=== PATIENT | male | born 1940 | race Caucasian/White ===

== ENCOUNTER 2016-12-29 22:10 | Inpatient (IN) ==
[2016-12-30] MEDS ORDERED: Naloxone 0.4 MG/ML INJ IVP PRN (02:28)
[2016-12-30] MEDS ORDERED: Ondansetron 4 MG/2 ML VIAL IVP PRN (02:28)
[2016-12-30] MEDS ORDERED: *HR* LORazepam 2 MG/ML VIAL IVP PRN ×6 (02:34→16:20)
[2016-12-30] MEDS ORDERED: Albuterol 2.5 MG/3 ML NEBULIZER IH PRN (02:35)
--- NOTE | 2016-12-30 02:48 | Internal Med History&Physical ---
Date of Encounter: 12/30/16 Time of Encounter: 01:50 Assessment and Plan (1) Cholecystitis Current visit: No Status: Acute 1. npo. 2. Consult Dr. Fraire for likely surgery today. 3. Culture blood. 4. Start IV Zosyn and Flagyl. 5. Pain control with IV Morphine. 6. Nausea control. (2) Alcoholism /alcohol abuse Current visit: Yes Status: Chronic 1. Will start CIWA protocol. 2. MVI/Thiamine/Folate IV daily. 3. IV Ativan PRN for withdrawal symptoms. (3) COPD (chronic obstructive pulmonary disease) Current visit: Yes Status: Chronic 1. No acute exacerbation. 2. Duonebs Scheduled and Albuterol aerosols PRN. 3. Pt may be difficult to extubate post-operatively. Continued pulmonary support recommended. Qualifiers: COPD type: emphysema Emphysema type: unspecified Qualified Code(s): J43.9 - Emphysema, unspecified (4) Elevated troponin Current visit: Yes Status: Acute 1. No active chest pain or symptoms to suggest angina. 2. Suspect pt has demand ischemia. 3. Pt at increased risk for cardiovascular complications. 4. Consult cardiology for kelly-operative assistance. (5) DVT prophylaxis Current visit: No Status: Acute 1. Heparin SQ. Internal Medicine - H&P: HPI Chief complaint: RUQ abdominal pain Admitted From: Hospital to Hospital Transfer Plans for Post Hospital Care: Home History of present illness: Mr. Manzo is a 76 year old male who presents in transfer from [facility]. He presented there with complaints of RUQ abdominal pain, nausea, vomiting, subjective fevers, and chills. Work-up revealed he had acute cholecystitis. ER contacted Dr. Fraire for requested transfer. She requested patient be admitted to hospitalist service with a surgical consult, given his co- morbitidites. There was also concern he might have pneumonia and/or CHF based upon imaging. Upon my assessment of the patient, he looks dry, ill, nauseated, but non-toxic. He denies any CP, SOB, coughing, or wheezing. He denies any lower extremity edema or weight gain. He has a remote history of CHF (last ECHO 03/13 -- LVEF 55 % with diastolic dysfunction). He states his abdominal pain started suddenly over the last 24 hours with worsening symptoms. He denies any GI blood loss. He drinks about 2-3 beers every day and occasional hard liquor. He denies any history of liver disease, but his CT abdomen suggest cirrhosis. Pt also is along time smoker and he suffers from COPD. Of note, his troponin is elevated. EKG suggests atrial fibrillation but no significant findings to suggest ischemia. He denies any recent history of angina, but he is rather sedentary according to his daughter. Past Med Surg Social Fam HX - Past Medical History Attestation: Yes The following information was validated with the patient. Source: patient, old records reviewed, obtained from family Medical history: arthritis, atrial fibrillation, COPD, GERD, hypertension Psychiatric history: anxiety, depression - Past Surgical History Surgical History: no surgical history - Social History Smoking Status: Current every day smoker Packs per day: 1 Smokeless Tobacco Status: No Alcohol use: heavy Drug use: none Current living situation: Home, With Family Activity Level: Mostly sedentary Recent Out of Country Travel Within the Last 8 Weeks: No - Family History Father Living Status: Hx Family Cardiac Disorders: Yes Mother Living Status: Hx Family Cardiac Disorders: No Hx Family Respiratory Disorders: No Internal Medicine - H&P: Meds Diltiazem CD (24hr) [Cardizem CD] 180 mg PO DAILY 07/23/15 [History] Tamsulosin [Flomax] 0.4 mg PO DAILY 07/23/15 [History] Mirtazapine [Remeron] 30 mg PO HS 03/24/16 [History] Oxycodone HCl/Acetaminophen [Percocet 10-325 mg Tablet] 1 tab PO Q6H PRN [History] Omeprazole [PriLOSEC] 40 mg PO DAILY #30 cap 03/26/16 [Rx] TraZODone 50 mg PO HS 12/29/16 [History] Allergies aspirin Allergy (Verified 12/29/16 22:25) See Comments unknown - Constitutional Constitutional: chills, fever(s) - EENT Eyes: no blurry vision, no change in vision Ears: no ear pain, no tinnitus Nose, mouth and throat: no nasal congestion, no nasal discharge, no sinus pressure, no sore throat - Cardiovascular Cardiovascular ROS IM: no chest pain, no dyspnea, no dyspnea on exertion, no edema, no palpitations - Respiratory Respiratory: no cough, no dyspnea, no hemoptysis, no chest congestion, no excessive phlegm production - Gastrointestinal Gastrointestinal: abdominal pain, nausea, vomiting, no diarrhea, no hematemesis , no hematochezia, no melena - Genitourinary Genitourinary ROS male: no dysuria, no flank pain, no hematuria - Musculoskeletal Musculoskeletal ROS IM: arthralgias, no back pain - Integumentary Integumentary IM: no rash, no jaundice - Neurological Neurological ROS: no dizziness, no focal weakness, no frequent falls, no headache(s) - Psychiatric Psychiatric: no anxiety, no depression - Endocrine Endocrine IM: no cold intolerance, no heat intolerance - Hematologic/Lymphatic Hematologic/Lymphatic: no easy bruising, no lymphadenopathy - Allergic/Immunologic Allergic/Immunologic: wheezing, no GI upset with certain foods - Constitutional Vitals: Temp Pulse Resp BP Pulse Ox 99.0 F 83 14 115/66 95 12/30/16 01:12 12/30/16 01:12 12/30/16 01:12 12/30/16 01:12 12/30/16 01:12 General appearance: Present: cooperative, mild distress, A&O X 3, pleasant, answers questions appropriately - Head Head exam: Present: atraumatic, normal inspection - Expanded Head Exam Head exam expanded: Absent: abrasion, contusion, general tenderness - Eye Eye exam: Present: EOMI, normal appearance, PERRL. Absent: scleral icterus Pupils: Present: normal accommodation - ENT ENT exam: Present: mucous membranes dry, normal exam, normal oropharynx - Neck Neck exam general surgery: Present: full ROM, supple. Absent: lymphadenopathy, tenderness, thyromegaly - Respiratory Respiratory exam: Present: CTAB, prolonged expiratory phase. Absent: accessory muscle use, chest wall tenderness, rales, respiratory distress, rhonchi, wheezes Additional comments: barrel chested; mild/rare wheeze; no respiratory distress - Cardiovascular Cardiovascular exam: Present: distant heart sounds, irregular rhythm, +S1, +S2. Absent: diastolic murmur, JVD, systolic murmur - GI/Abdominal GI/Abdominal exam: Present: guarding, soft, tenderness (RUQ), no peritoneal signs. Absent: hepatomegaly, rebound, rigid, splenomegaly - Extremities Exam Extremities exam: Present: warm. Absent: calf tenderness, full ROM, joint swelling, pedal edema - Back Exam Back exam: Present: normal inspection. Absent: CVA tenderness (L), CVA tenderness (R) - Neurological Exam Neurological exam: Present: alert, CN II-XII intact, oriented X3, no focal deficits, strengths equal and symetr throughout - Psychiatric Psychiatric exam: Present: normal affect, normal mood - Skin Skin exam: Present: dry, warm. Absent: rash Internal Med - H&P Results - Labs Labs: I reviewed labs from Mario: WBC 13.9 hgb 14.4 Hct 41.2 Plt 133 Sodium 129 Potassium 4.0 Chloride 96 CO2 22 BUN 18 Creatinine 1.[address] scan Abdomen report reviewed as well - EKG Data -: EKG Interpreted by Myself - EKG Data Prior EKG available for review: no EKG comments: 12/30/16 02:56 Atrial Fibrillation; NO significant ST-T changes appreciated
[2016-12-30] MEDS: 0.9 % Sodium Chloride w KCl 20 MEQ/1,000 ML MLS IVC SCH (03:08)
[2016-12-30] MEDS: *HR* Morphine 2 MG/ML SYRINGE IVP PRN ×7 (03:11→21:22)
[2016-12-30] MEDS: Ipratropium/Albuterol Neb 3 ML IH SCH ×6 (05:05→23:05)
[2016-12-30] MEDS: *HR* Heparin 5,000 UNIT/ML VIAL SQ SCH ×2 (05:20→18:03)
[2016-12-30 05:39] LABS: Basophils % 0.2 %; Eosinophils % 0.1 %; Hematocrit 37.4 % (37.5-50.1); Lymphocytes # 2.2 K/mcL (0.6-4.6); Lymphocytes % 14.4 %; Mean Corpuscular HGB Conc 34.8 g/dL (31.6-35.5); Mean Corpuscular Hemoglobin 33.3 pg (28.0-33.3); Mean Corpuscular Volume 95.9 fL (83.0-100.0); Mean Platelet Volume 11.2 fL (9.4-12.4); Monocytes # 1.4 K/mcL (0.0-1.3); Monocytes % 9.4 %; Neutrophils # 11.4 K/mcL (1.6-8.9); Platelet Count 113 K/mcL (140-400); Red Cell Distribution Width 14.7 % (11.5-14.5); Segmented Neutrophils % 74.9 %
[2016-12-30 05:42] LABS: Alanine Aminotransferase 11 Units/L (0-55); Albumin 2.8 g/dL (3.5-5.0); Albumin/Globulin Ratio 0.7 (1.1-2.2); Alkaline Phosphatase 106 Units/L (38-126); Aspartate Amino Transferase 18 Units/L (5-34); BUN/Creatinine Ratio 20 (6-26); Bilirubin,Total 2.2 mg/dL (0.2-1.2); Blood Urea Nitrogen 21 mg/dL (8-26); Calcium 8.6 mg/dL (8.6-10.8); Carbon Dioxide 24 mEq/L (19-29); Chloride 98 mEq/L (98-109); Globulin 4.3 g/dL (2.4-3.5); Glucose 95 mg/dL (70-99); Magnesium 1.8 mg/dL (1.6-2.6); Osmolality,Calculated 277 (280-300); Potassium 4.2 mEq/L (3.5-4.5); Sodium 132 mEq/L (136-145); Total Protein 7.1 g/dL (6.0-8.3); eGFR For African Americans > 60 (> 60); eGFR For Non-African Americans > 60 (> 60)
[2016-12-30] MEDS ORDERED: MetroNIDAZOLE 500 MG/100 ML 500 MG/100 ML BAG IVPB SCH (08:00)
[2016-12-30] MEDS ORDERED: Piperacillin/Tazobactam 3.375 GM in D5% in Water (Mini-Bag+) 100 ML IVPB SCH (08:00)
[2016-12-30 08:45] LABS: Bilirubin,Direct 1.4 mg/dL (0.0-0.5)
--- NOTE | 2016-12-30 09:44 | Internal Med Progress Note ---
<Jamie Cárdenas - Last Filed: 12/30/16 16:28> Date of Encounter: 12/30/16 Time of Encounter: 09:44 - Assessment and plan (1) Acute cholecystitis Current Visit: Yes Status: Acute Assessment and plan: Abd CT and RUQ u/s done, possible early chlecystitis, surgery consulted, HIDA scan ordered for tmw, con't NPO, bowel rest, IV fluids. (2) Alcohol abuse Current Visit: Yes Status: Acute Assessment and plan: CIWA protocol with prn Ativan and daily rally pack. (3) Cirrhosis of liver Current Visit: No Status: Acute Assessment and plan: F/u with GI as outpt, from alcohol abuse. Qualifiers: Ascites presence: without ascites Qualified Code(s): K74.60 - Unspecified cirrhosis of liver (4) DVT prophylaxis Current Visit: Yes Status: Acute Assessment and plan: Heparin SQ. - Subjective Interval history: Pt seen and examined, pt received ativan prior and was very sleepy, family members were at bedside, updated us the situation. - Constitutional Vitals: Temp Pulse Resp BP Pulse Ox 98.5 F 96 16 144/79 93 L 12/30/16 06:43 12/30/16 06:43 12/30/16 06:43 12/30/16 06:43 12/30/16 06:43 General appearance: Absent: cooperative, answers questions appropriately - Head Head exam: Present: atraumatic, normocephalic - Eye Eye exam: Present: PERRL, conjuntiva pink, sclera anicteric Pupils: Present: PERRL - Neck Neck exam general surgery: Present: supple, trachea midline. Absent: lymphadenopathy - Respiratory Respiratory exam: Present: decreased breath sounds (at base b/l). Absent: accessory muscle use, rales, rhonchi, wheezes - Cardiovascular Cardiovascular exam: Present: RRR, +S1, +S2. Absent: diastolic murmur, gallop, rubs, systolic murmur - GI/Abdominal GI/Abdominal exam: Present: normal bowel sounds, soft, no peritoneal signs. Absent: distended, tenderness - Extremities Exam Extremities exam: Present: warm, radial pulses palpable and symetrical. Absent : calf tenderness, cyanotic, pedal edema - Neurological Exam Neurological exam: Present: CN II-XII intact, oriented X3, no focal deficits. Absent: pronater drift, facial droop, speech deficit - Skin Skin exam: Present: dry, intact Internal Medicine: Result - Labs CBC & Chem 7: 12/30/16 05:15 12/30/16 05:15 Labs: Short CBC 12/30/16 Range/Units 05:15 WBC 15.2 H (4.3-11.1) K/mcL Hgb 13.0 (12.9-16.9) g/dL Hct 37.4 L (37.5-50.1) % Plt Count 113 L (140-400) K/mcL Neutrophils # 11.4 H (1.6-8.9) K/mcL BMP 12/30/16 05:15 Sodium 132 L Potassium 4.2 Chloride 98 Carbon Dioxide 24 BUN 21 Creatinine 1.06 Glucose 95 Calcium 8.6 Cardiac Enzymes 12/30/16 Range/Units 05:15 Troponin I 0.03 (0-0.03) ng/mL Liver Function 12/30/16 Range/Units 05:15 Total Bilirubin 2.2 H (0.2-1.2) mg/dL Direct Bilirubin 1.4 H (0.0-0.5) mg/dL AST 18 (5-34) Units/L ALT 11 (0-55) Units/L Alkaline Phosphatase 106 (38-126) Units/L Albumin 2.8 L (3.5-5.0) g/dL Consult Discharge Plan - Plan Referrals: Emanuel Waters MD [Primary Care Provider] - <Eric Puentes - Last Filed: 12/30/16 16:47> Date of Encounter: 12/30/16 - Constitutional Vitals: Temp Pulse Resp BP Pulse Ox 98.0 F 91 20 154/81 91 L 12/30/16 11:48 12/30/16 11:48 12/30/16 12:10 12/30/16 11:48 12/30/16 12:10 Internal Medicine: Result - Labs CBC & Chem 7: 12/30/16 05:15 12/30/16 05:15 Labs: Short CBC 12/30/16 Range/Units 05:15 WBC 15.2 H (4.3-11.1) K/mcL Hgb 13.0 (12.9-16.9) g/dL Hct 37.4 L (37.5-50.1) % Plt Count 113 L (140-400) K/mcL Neutrophils # 11.4 H (1.6-8.9) K/mcL BMP 12/30/16 05:15 Sodium 132 L Potassium 4.2 Chloride 98 Carbon Dioxide 24 BUN 21 Creatinine 1.06 Glucose 95 Calcium 8.6 Cardiac Enzymes 12/30/16 12/30/16 Range/Units 05:15 12:27 Troponin I 0.03 0.02 (0-0.03) ng/mL Liver Function 12/30/16 Range/Units 05:15 Total Bilirubin 2.2 H (0.2-1.2) mg/dL Direct Bilirubin 1.4 H (0.0-0.5) mg/dL AST 18 (5-34) Units/L ALT 11 (0-55) Units/L Alkaline Phosphatase 106 (38-126) Units/L Albumin 2.8 L (3.5-5.0) g/dL - ABG Interpretation ABG results: PT/INR, D-dimer PT 15.1 Seconds (9.4-12.1) H 12/30/16 12:27 - Impressions Impressions Gallbladder Ultrasound 12/30/16 10:30 IMPRESSION: Cholelithiasis. Sonographic Cool sign was reported and gallbladder wall is upper limits of normal in thickness. Early cholecystitis is a consideration in the appropriate clinical setting. If warranted, HIDA scan could be performed for further assessment. D/ / Bassem Jain MD / Bassem Jain MD Interpreting Provider: Bassem Jain MD - Attending Attestation I examined this patient and my medical decision-making was reviewed with the COCKTA[employer] WAITRESS/PA/Advanced Practice Nurse/Resident Physician. I agree with the documented findings, disposition and treatment plan as described except to the extent set forth below. Agree with Dr. Cárdenas's assessment and plan. Will continue with cipro and flagyl. Follow surgical input.
--- NOTE | 2016-12-30 10:10 | General Surgery Consult Note ---
<Frank Sánchez - Last Filed: 12/30/16 11:34> Date of Encounter: 12/30/16 Time of Encounter: 08:10 Assessment and Plan (1) Abdominal pain Current Visit: No Status: Acute CT on 12/29/16 suggestive of possible cholecystitis, recommending US. US on 12/30/16 with cholelithiasis. Sonographic Cool sign. Gallbladder upper limits of normal thickness. Consider early cholecystitis, consider HIDA scan. Elevated Bilirubin at 2.2 total, 1.4 direct. Normal in Jun 2016. Previous admission of abdominal pain 03/24/17 for gastritis secondary to alcohol consumption, MRI noted 2 gallstones then and trace pericholecystic fluid nonspecific in setting of cirrhosis. Qualifiers: Abdominal location: right upper quadrant Qualified Code(s): R10.11 - Right upper quadrant pain (2) Cholecystitis Current Visit: No Status: Acute Possible cholecysititis, US pending. (3) Cirrhosis of liver Current Visit: No Status: Acute Management per medicine service. Qualifiers: Ascites presence: without ascites (4) Alcoholism /alcohol abuse Current Visit: Yes Status: Chronic Noted 2, occasionally 3 beers daily. (5) Atrial fibrillation Current Visit: No Status: Chronic Anticoagulation discontinued 6 months ago due to gastric bleeding. INR 1.3 Echo pending. Management per medicine service. Qualifiers: Atrial fibrillation type: chronic Qualified Code(s): I48.2 - Chronic atrial fibrillation (6) COPD (chronic obstructive pulmonary disease) Current Visit: Yes Status: Chronic Management per medicine service. Qualifiers: COPD type: emphysema Emphysema type: unspecified Qualified Code(s): J43.9 - Emphysema, unspecified History of Present Illness Consult date: 12/30/16 Reason for consult: abdominal pain Requesting physician: Alon Puga History of present illness: Mr. Manzo is a 76 year old male transferred from [place] ED for acute abdominal patient x 2 days. Patient states he noted some blood in his urine 2 days ago when the pain began, but denies any pain with urination or changes in frequency. States he thought it was his "kidneys". He described the pain as being present in the RUQ and RLQ radiating into the R flank, but no radiation to his back. He describes the discomfort as a cramping pain that is continuously a 10/10 in severity. Noted that he hasn't had an appetite the past 2 days with the pain, states eating anything seems to make the pain worse. Patient denies any reflex/GERD, though on omeprazole with history of gastritis. Patient denies any fever, chills, shortness or breath, chest pain, diarrhea. PMHs includes arthritis, A fib, HTN, anxiety, depression,and long standing history of tobacco and alcohol use. Denies any previous issues with gallbladder. Patient states previously on anticoagulation that was discontinued approx 6 months ago due to gastric bleeding. Denies any surgical history. Admitted to [place] March 24, 2016 for gastritis secondary to alcohol consumption. CT report from [place] 12/29/16: suggested RUQ US for possible acute cholecystitis. Gallbladder shrunken with apparent stones, suspected gallbladder wall thickening and pericholecystic fatty stranding. CT also noted Cirrhosis with fat stranding. Nonobstructing infrarenal stones. 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 T12 compression fracture (also mentioned on previous CT). Heavy atherosclerosis. US of gallbladder pending. Past Med Surg Social Fam HX - Past Medical History Source: patient Medical history: arthritis, atrial fibrillation, COPD, GERD, hypertension Psychiatric history: anxiety, depression - Past Surgical History Surgical History: no surgical history - Social History Smoking Status: Current every day smoker (for approx 70 years) Packs per day: 1 Smokeless Tobacco Status: No Alcohol use: heavy (2-3 beers daily) Drug use: none - Family History Father Living Status: Hx Family Cardiac Disorders: Yes Mother Living Status: Hx Family Cardiac Disorders: No Hx Family Respiratory Disorders: No Medications and Allergies Diltiazem CD (24hr) [Cardizem CD] 180 mg PO DAILY 07/23/15 [History] Tamsulosin [Flomax] 0.4 mg PO DAILY 07/23/15 [History] Mirtazapine [Remeron] 30 mg PO HS 03/24/16 [History] Oxycodone HCl/Acetaminophen [Percocet 10-325 mg Tablet] 1 tab PO Q8H PRN [History] Omeprazole [PriLOSEC] 40 mg PO DAILY #30 cap 03/26/16 [Rx] TraZODone 50 mg PO HS 12/29/16 [History] Loratadine [Claritin] 10 mg PO DAILY 12/30/16 [History] Allergies aspirin Allergy (Verified 12/30/16 07:32) See Comments unknown Review of Systems All systems PM: A 10-system review of systems was performed and is negative for pertinent findings except as documented above in the HPI. - Constitutional no chills, no fever(s) - EENT Nose, mouth and throat: no dysphagia - Cardiovascular dyspnea, no chest pain, no syncope - Respiratory dyspnea - Gastrointestinal abdominal pain, cramping, no diarrhea, no nausea, no vomiting - Genitourinary flank pain, hematuria, no difficulty urinating - Musculoskeletal no muscle weakness, no radiating pain into limb - Neurological no confusion, no dizziness, no syncope - Endocrine no fatigue, no flushing General Surgery Exam Initial Vital Signs Temp Pulse Resp BP Pulse Ox 99.0 F 83 14 115/66 95 12/30/16 01:12 12/30/16 01:12 12/30/16 01:12 12/30/16 01:12 12/30/16 01:12 - General physical appearance well developed, well nourished, moderate distress, moderate pain - Eyes normal ocular movement - ENT normal mucosa, atraumatic, normocephalic - Neck trachea midline - Respiratory normal respiratory effort wheezing: bilateral (expiratory) - Cardiovascular Cardiovascular exam: Present: tachycardia, irregular rhythm - Abdomen Abdomen general surgery: Present: bowel sounds present (hypoactive), soft, tender (tenderness worse in RUQ, but also present in RLQ and R flank. No CVA tenderness.). Absent: distended, guarding, rebound, rigid Abdominal Tenderness: Present: RUQ (Cool's sign positive.), RLQ - Integumentary Integumentary general surgery: Present: warm and dry - Neurologic Present: CN 2-12 grossly intact - Psychiatric Psychiatric general surgery: Present: A&Ox3, speech is normal, memory intact Exam Initial Vital Signs Temp Pulse Resp BP Pulse Ox 99.0 F 83 14 115/66 95 12/30/16 01:12 12/30/16 01:12 12/30/16 01:12 12/30/16 01:12 12/30/16 01:12 Results - Labs 12/30/16 05:15 12/30/16 05:15 Abnormal lab results WBC 15.2 K/mcL (4.3-11.1) H 12/30/16 05:15 RBC 3.90 M/mcL (4.19-5.50) L 12/30/16 05:15 Hct 37.4 % (37.5-50.1) L 12/30/16 05:15 RDW 14.7 % (11.5-14.5) H 12/30/16 05:15 Plt Count 113 K/mcL (140-400) L 12/30/16 05:15 Neutrophils # 11.4 K/mcL (1.6-8.9) H 12/30/16 05:15 Monocytes # 1.4 K/mcL (0.0-1.3) H 12/30/16 05:15 Sodium 132 mEq/L (136-145) L 12/30/16 05:15 POC Glucose 92 (58-89) H 12/30/16 05:50 Calculated Osmolality 277 (280-300) L 12/30/16 05:15 Total Bilirubin 2.2 mg/dL (0.2-1.2) H 12/30/16 05:15 Direct Bilirubin 1.4 mg/dL (0.0-0.5) H 12/30/16 05:15 Albumin 2.8 g/dL (3.5-5.0) L 12/30/16 05:15 Globulin 4.3 g/dL (2.4-3.5) H 12/30/16 05:15 Albumin/Globulin Ratio 0.7 (1.1-2.2) L 12/30/16 05:15 Diabetes panel 12/30/16 Range/Units 05:15 Sodium 132 L (136-145) mEq/L Potassium 4.2 (3.5-4.5) mEq/L Chloride 98 (98-109) mEq/L Carbon Dioxide 24 (19-29) mEq/L BUN 21 (8-26) mg/dL Creatinine 1.06 (0.72-1.25) mg/dL Glucose 95 (70-99) mg/dL Calcium 8.6 (8.6-10.8) mg/dL AST 18 (5-34) Units/L ALT 11 (0-55) Units/L Alkaline Phosphatase 106 (38-126) Units/L Albumin 2.8 L (3.5-5.0) g/dL Calcium panel 12/30/16 Range/Units 05:15 Calcium 8.6 (8.6-10.8) mg/dL Albumin 2.8 L (3.5-5.0) g/dL Pituitary panel 12/30/16 Range/Units 05:15 Sodium 132 L (136-145) mEq/L Potassium 4.2 (3.5-4.5) mEq/L Chloride 98 (98-109) mEq/L Carbon Dioxide 24 (19-29) mEq/L BUN 21 (8-26) mg/dL Creatinine 1.06 (0.72-1.25) mg/dL Glucose 95 (70-99) mg/dL Calcium 8.6 (8.6-10.8) mg/dL Adrenal panel 12/30/16 Range/Units 05:15 Sodium 132 L (136-145) mEq/L Potassium 4.2 (3.5-4.5) mEq/L Chloride 98 (98-109) mEq/L Carbon Dioxide 24 (19-29) mEq/L BUN 21 (8-26) mg/dL Creatinine 1.06 (0.72-1.25) mg/dL Glucose 95 (70-99) mg/dL Calcium 8.6 (8.6-10.8) mg/dL Total Bilirubin 2.2 H (0.2-1.2) mg/dL AST 18 (5-34) Units/L ALT 11 (0-55) Units/L Alkaline Phosphatase 106 (38-126) Units/L Albumin 2.8 L (3.5-5.0) g/dL All other labs normal. Consult Discharge Plan - Plan Referrals: Emanuel Waters MD [Primary Care Provider] - <Hoa Fraire - Last Filed: 12/30/16 16:25> Date of Encounter: 12/30/16 Assessment and Plan (1) Alcoholism /alcohol abuse Current Visit: Yes Status: Chronic patient likely drinks more than stated amount given alcohol history and liver disease (2) COPD (chronic obstructive pulmonary disease) Current Visit: Yes Status: Chronic Qualifiers: COPD type: emphysema Emphysema type: unspecified Qualified Code(s): J43.9 - Emphysema, unspecified (3) Abdominal pain Current Visit: No Status: Acute patient with cirrhosis and gallbladder is contracted with stones and some stranding around liver with elevated lft makes me more concerned for a liver process. US gallbladder obtained with no findings consistent with acute cholecystitis. Will obtain hida scan if he can stay off narcotics and ativan. If cholecystitis demonstrated with obtain percutaneous cholecystostomy tube. Patient is very tender in RUQ. Elevated wbc and Direct bilirubin. CBD normal on US. continue Abx, trend wbc Qualifiers: Abdominal location: right upper quadrant Qualified Code(s): R10.11 - Right upper quadrant pain (4) Elevated LFTs Current Visit: Yes Status: Acute trend patient had hepatitis panel in february 2016 - negative History of Present Illness History of present illness: per family present patient was admitted in February of last year for similar complaints of pain. 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 Review of Systems All systems PM: A 10-system review of systems was performed and is negative for pertinent findings except as documented above in the HPI. General Surgery Exam Initial Vital Signs Temp Pulse Resp BP Pulse Ox 99.0 F 83 14 115/66 95 12/30/16 01:12 12/30/16 01:12 12/30/16 01:12 12/30/16 01:12 12/30/16 01:12 - General physical appearance moderate distress, cachectic, chronically ill - Eyes pinpoint pupil - ENT dry mucosa, atraumatic, normocephalic - Abdomen Abdomen general surgery: Present: bowel sounds present, soft, tender. Absent: distended, guarding, rebound Abdominal Tenderness: Present: RUQ - Integumentary Integumentary general surgery: Present: warm and dry, no abnormal pigmentation - Neurologic Present: other (sedated) - Psychiatric Psychiatric general surgery: Present: A&Ox3 Exam Initial Vital Signs Temp Pulse Resp BP Pulse Ox 99.0 F 83 14 115/66 95 12/30/16 01:12 12/30/16 01:12 12/30/16 01:12 12/30/16 01:12 12/30/16 01:12 Results - Labs 12/30/16 05:15 12/30/16 05:15 Abnormal lab results WBC 15.2 K/mcL (4.3-11.1) H 12/30/16 05:15 RBC 3.90 M/mcL (4.19-5.50) L 12/30/16 05:15 Hct 37.4 % (37.5-50.1) L 12/30/16 05:15 RDW 14.7 % (11.5-14.5) H 12/30/16 05:15 Plt Count 113 K/mcL (140-400) L 12/30/16 05:15 Neutrophils # 11.4 K/mcL (1.6-8.9) H 12/30/16 05:15 Monocytes # 1.4 K/mcL (0.0-1.3) H 12/30/16 05:15 PT 15.1 Seconds (9.4-12.1) H 12/30/16 12:27 Sodium 132 mEq/L (136-145) L 12/30/16 05:15 POC Glucose 102 (58-89) H 12/30/16 11:44 Calculated Osmolality 277 (280-300) L 12/30/16 05:15 Total Bilirubin 2.2 mg/dL (0.2-1.2) H 12/30/16 05:15 Direct Bilirubin 1.4 mg/dL (0.0-0.5) H 12/30/16 05:15 Albumin 2.8 g/dL (3.5-5.0) L 12/30/16 05:15 Globulin 4.3 g/dL (2.4-3.5) H 12/30/16 05:15 Albumin/Globulin Ratio 0.7 (1.1-2.2) L 12/30/16 05:15 Diabetes panel 12/30/16 Range/Units 05:15 Sodium 132 L (136-145) mEq/L Potassium 4.2 (3.5-4.5) mEq/L Chloride 98 (98-109) mEq/L Carbon Dioxide 24 (19-29) mEq/L BUN 21 (8-26) mg/dL Creatinine 1.06 (0.72-1.25) mg/dL Glucose 95 (70-99) mg/dL Calcium 8.6 (8.6-10.8) mg/dL AST 18 (5-34) Units/L ALT 11 (0-55) Units/L Alkaline Phosphatase 106 (38-126) Units/L Albumin 2.8 L (3.5-5.0) g/dL Calcium panel 12/30/16 Range/Units 05:15 Calcium 8.6 (8.6-10.8) mg/dL Albumin 2.8 L (3.5-5.0) g/dL Pituitary panel 12/30/16 Range/Units 05:15 Sodium 132 L (136-145) mEq/L Potassium 4.2 (3.5-4.5) mEq/L Chloride 98 (98-109) mEq/L Carbon Dioxide 24 (19-29) mEq/L BUN 21 (8-26) mg/dL Creatinine 1.06 (0.72-1.25) mg/dL Glucose 95 (70-99) mg/dL Calcium 8.6 (8.6-10.8) mg/dL Adrenal panel 12/30/16 Range/Units 05:15 Sodium 132 L (136-145) mEq/L Potassium 4.2 (3.5-4.5) mEq/L Chloride 98 (98-109) mEq/L Carbon Dioxide 24 (19-29) mEq/L BUN 21 (8-26) mg/dL Creatinine 1.06 (0.72-1.25) mg/dL Glucose 95 (70-99) mg/dL Calcium 8.6 (8.6-10.8) mg/dL Total Bilirubin 2.2 H (0.2-1.2) mg/dL AST 18 (5-34) Units/L ALT 11 (0-55) Units/L Alkaline Phosphatase 106 (38-126) Units/L Albumin 2.8 L (3.5-5.0) g/dL All other labs normal. - Imaging CT scan - abdomen: report reviewed, image reviewed CT scan - pelvis: report reviewed, image reviewed US - abdomen: report reviewed - Attending Attestation I examined this patient and my medical decision-making was reviewed with the SENIOR CORE JAVA DEVELOPER/PA/Advanced Practice Nurse/Resident Physician. I agree with the documented findings, disposition and treatment plan as described except to the extent set forth below.
[2016-12-30] MEDS: Pantoprazole 40 MG VIAL IVP SCH (11:38)
[2016-12-30] MEDS: Thiamine (B-1) 100 MG, Folic Acid 1 MG, MVI, adult with vitamin K 10 ML in 0.9 % Sodi... IV SCH (11:59)
[2016-12-30 12:57] LABS: INR 1.4; Prothrombin Time 15.1 Seconds (9.4-12.1)
[2016-12-30] MEDS ORDERED: Water for inj. (sterile) 10 ML IV ONE (14:38)
[2016-12-30] MEDS ORDERED: Perflutren Lipid Microsphere 1.3 ML in 0.9 % Sodium Chloride 8.7 ML IVP ONE (17:10)
[2016-12-30] MEDS: 0.9 % Sodium Chloride 1,000 ML IVC SCH (17:58)
[2016-12-30] MEDS: MetroNIDAZOLE 500 MG/100 ML 500 MG/100 ML BAG IVPB SCH (18:00)
[2016-12-30] MEDS: Temazepam 15 MG CAPSULE PO PRN (23:46)
[2016-12-31 00:40] LABS: Bilirubin,Urine Moderate (Negative); Blood,Urine Negative (Negative); Clarity,Urine Clear (Clear); Color,Urine Yellow (Yellow); Glucose,Urine (UA) Normal (Normal); Ketones,Urine Negative (Negative); Leukocyte Esterase,Urine Negative (Negative); Nitrite,Urine Negative (Negative); PH,Urine 6.5 pH Units (5.0-8.0); Protein,Urine 100 mg/dL (Neg-Trace); Specific Gravity,Urine 1.016 (1.010-1.025); Urobilinogen,Urine Normal (Normal)
[2016-12-31 00:42] LABS: Bacteria,Urine None Seen per hpf (None-Few); Hyaline Casts,Urine None Seen per lpf (None-Few); RBC,Urine 0-3 per hpf (0-3); Squamous Epithelial Cell,Urine Many per lpf (None-Few)
[2016-12-31] MEDS: Ipratropium/Albuterol Neb 3 ML IH SCH ×5 (04:34→20:39)
[2016-12-31] MEDS: Acetaminophen 325 MG TABLET PO PRN ×2 (05:09→18:27)
[2016-12-31] MEDS: *HR* Heparin 5,000 UNIT/ML VIAL SQ SCH ×2 (05:10→16:32)
[2016-12-31 05:25] LABS: Basophils % 0.2 %; Eosinophils % 0.1 %; Hemoglobin 12.7 g/dL (12.9-16.9); Immature Granulocytes % 0.9 % (0-4); Lymphocytes % 7.4 %; Mean Corpuscular HGB Conc 33.4 g/dL (31.6-35.5); Mean Corpuscular Hemoglobin 32.4 pg (28.0-33.3); Mean Corpuscular Volume 96.9 fL (83.0-100.0); Mean Platelet Volume 11.4 fL (9.4-12.4); Monocytes % 11.1 %; Platelet Count 109 K/mcL (140-400); Red Blood Count 3.92 M/mcL (4.19-5.50); Red Cell Distribution Width 14.7 % (11.5-14.5); Segmented Neutrophils % 80.3 %
[2016-12-31 05:26] LABS: Lymphocytes # 0.9 K/mcL (0.6-4.6); Monocytes # 1.3 K/mcL (0.0-1.3); Neutrophils # 9.4 K/mcL (1.6-8.9)
[2016-12-31 05:48] LABS: Alanine Aminotransferase 9 Units/L (0-55); Albumin 2.6 g/dL (3.5-5.0); Albumin/Globulin Ratio 0.6 (1.1-2.2); Alkaline Phosphatase 109 Units/L (38-126); Aspartate Amino Transferase 15 Units/L (5-34); BUN/Creatinine Ratio 19 (6-26); Bilirubin,Direct 0.8 mg/dL (0.0-0.5); Bilirubin,Indirect 0.5 mg/dL (0.0-1.2); Bilirubin,Total 1.3 mg/dL (0.2-1.2); Blood Urea Nitrogen 15 mg/dL (8-26); Calcium 8.5 mg/dL (8.6-10.8); Carbon Dioxide 19 mEq/L (19-29); Chloride 103 mEq/L (98-109); Globulin 4.3 g/dL (2.4-3.5); Glucose 97 mg/dL (70-99); Osmolality,Calculated 275 (280-300); Potassium 3.9 mEq/L (3.5-4.5); Sodium 132 mEq/L (136-145); Total Protein 6.9 g/dL (6.0-8.3); eGFR For African Americans > 60 (> 60); eGFR For Non-African Americans > 60 (> 60)
[2016-12-31] MEDS: 0.9 % Sodium Chloride 1,000 ML IVC SCH ×3 (06:01→22:45)
[2016-12-31] MEDS: *HR* Morphine 2 MG/ML SYRINGE IVP PRN ×5 (09:12→23:06)
[2016-12-31] MEDS: MetroNIDAZOLE 500 MG/100 ML 500 MG/100 ML BAG IVPB SCH ×3 (09:12→16:33)
[2016-12-31] MEDS: Thiamine (B-1) 100 MG, Folic Acid 1 MG, MVI, adult with vitamin K 10 ML in 0.9 % Sodi... IV SCH (09:13)
[2016-12-31] MEDS: Pantoprazole 40 MG VIAL IVP SCH (09:14)
--- NOTE | 2016-12-31 10:36 | ECHO - Doppler Report ---
Echocardiogram Name: Tomás Manzo Date of Study: 12/30/2016 Date: 1940 Ht: 71.0 in Medical Record#: [id number] Age: 76 Wt: 129.0 lb Gender: Male BSA: 1.75 Order #: [id number] Location: [facility] Room #: 3A31 Reading Physician: Pelon Neff DO, CHRISTOPHER, JOSEPH OCHOA Printing Worker Supervisor: Ruchi Mukherjee Ordering Physician: Alon Puga MD Primary Physician: Emanuel Waters MD Indications: Troponin elevation Impressions: LV function varies by cycle length of atrial fibrillation. Overall, LVEF appears to be low normal, 50-55%. Indeterminate diastolic function. Severely dilated left atrium. Severely dilated right atrium. Mild mitral regurgitation. Mild-moderate pulmonary hypertension. Estimated RVSP is 46 mmHg. Findings: Study Quality * Technically sub-optimal due to poor echocardiographic windows. ECG Findings * Atrial fibrillation. Left Ventricle * LV function varies by cycle length of atrial fibrillation. Overall, LVEF appears to be low normal, 50-55%. * Normal LV chamber size and wall thickness. * Indeterminate diastolic function. Right Ventricle * Normal right ventricular structure and function. Left Atrium * Severely dilated left atrium. Right Atrium * Severely dilated right atrium. Interatrial Septum * Interatrial septum not well evaluated. Visually, it does appear to be persistent bowed from left to right. Aortic Valve * Trileaflet aortic valve. * Mildly sclerotic aortic valve leaflets with focal areas of calcification. * No aortic regurgitation. * No aortic stenosis. Mitral Valve * Mildly thickened mitral valve leaflets and subvalvular apparatus. * Mild mitral annular calcification. * Mild mitral regurgitation. * No mitral stenosis. Tricuspid Valve * Normal tricuspid valve structure. * Trace tricuspid regurgitation. * Mild-moderate pulmonary hypertension. * Estimated RVSP is 46 mmHg. * Estimated RA pressure is 5 mmHg. Pulmonic Valve * Pulmonic valve not well visualized. * No pulmonic regurgitation. Aorta * Normally sized aortic root. Pericardium * The pericardium appears normal. IVC * Normal IVC dimensions and inspiratory collapse. Pulmonary Artery * Normal visualized portions of the main pulmonary artery. History Hypertension 03/24/2016 a Previous Echo was performed. Measurements: BP: 154/ 81 2D Normal Values RVIDd: 4.30 cm <2.7 cm IVSd: 1.00 cm 0.6 - 1.0 cm LVIDd: 5.30 cm 3.7 - 5.6 cm LVPWd: .90 cm 0.6 - 1.1 cm LVIDs: 4.20 cm 1.5 - 3.6 cm AO: 2.90 cm < 4.0 cm LA: 5.00 cm 2.0 - 4.0cm %FS: 20.80 cm >25 % LA volume: 286 Mitral Valve Peak E:.88 m/sec Peak A:.32 m/sec E/A Ratio:2.7 Peak E' Lat Uvaldo:20.4 cm/s Peak E' Med Uvaldo:10.1 cm/s E/E' Lat Ratio:4.3 E/E' Med Ratio:8.7 Tricuspid Valve TV Regurg Peak Grad: 41.00mmHg TV Regurg Peak Uvaldo: 3.21m/sec Updated by Pelon Neff DO, CHRISTOPHER, JOSEPH OCHOA on 12/31/2016 10:29:27 AM electronically signed on 12/31/2016 10:30:10 AM with status of Final [employer] Molina: 1=Normal, 2=Hypokinesis, 3=Akinesis, 4=Dyskinesis, 5=Aneurysmal, 6=Hyperkinetic, X=Not Visualized (Blank)=Missing
--- NOTE | 2016-12-31 10:54 | Internal Med Progress Note ---
Date of Encounter: 12/31/16 Time of Encounter: 10:53 - Assessment and plan (1) Acute cholecystitis Current Visit: Yes Status: Acute (2) Alcohol abuse Current Visit: Yes Status: Acute (3) Cirrhosis of liver Current Visit: No Status: Acute Qualifiers: Ascites presence: without ascites Qualified Code(s): K74.60 - Unspecified cirrhosis of liver (4) DVT prophylaxis Current Visit: Yes Status: Acute - Subjective Interval history: Pt seen and examined, pt received ativan prior and was very sleepy, family members were at bedside, updated us the situation. - Constitutional Vitals: Temp Pulse Resp BP Pulse Ox 97.6 F 89 20 160/79 93 L 12/31/16 08:55 12/31/16 08:55 12/31/16 08:55 12/31/16 08:55 12/31/16 08:55 General appearance: Absent: cooperative, answers questions appropriately Internal Medicine: Result - Labs CBC & Chem 7: 12/31/16 04:27 12/31/16 04:27 Labs: Short CBC 12/31/16 Range/Units 04:27 WBC 11.7 H (4.3-11.1) K/mcL Hgb 12.7 L (12.9-16.9) g/dL Hct 38.0 (37.5-50.1) % Plt Count 109 L (140-400) K/mcL Neutrophils # 9.4 H (1.6-8.9) K/mcL BMP 12/31/16 04:27 Sodium 132 L Potassium 3.9 Chloride 103 Carbon Dioxide 19 BUN 15 Creatinine 0.79 Glucose 97 Calcium 8.5 L Cardiac Enzymes 12/30/16 12/30/16 Range/Units 12:27 18:30 Troponin I 0.02 0.02 (0-0.03) ng/mL Liver Function 12/31/16 Range/Units 04:27 Total Bilirubin 1.3 H (0.2-1.2) mg/dL Direct Bilirubin 0.8 H (0.0-0.5) mg/dL AST 15 (5-34) Units/L ALT 9 (0-55) Units/L Alkaline Phosphatase 109 (38-126) Units/L Albumin 2.6 L (3.5-5.0) g/dL Urine 12/31/16 Range/Units 00:27 Urine Color Yellow (Yellow) Urine Clarity Clear (Clear) Urine pH 6.5 (5.0-8.0) pH Units Ur Specific [place] 1.016 (1.010-1.025) Urine Protein 100 H (Neg-Trace) mg/dL Urine Glucose (UA) Normal (Normal) mg/dL - ABG Interpretation ABG results: PT/INR, D-dimer PT 15.1 Seconds (9.4-12.1) H 12/30/16 12:27 - Impressions Impressions Gallbladder Ultrasound 12/30/16 10:30 IMPRESSION: Cholelithiasis. Sonographic Cool sign was reported and gallbladder wall is upper limits of normal in thickness. Early cholecystitis is a consideration in the appropriate clinical setting. If warranted, HIDA scan could be performed for further assessment. D/ / Bassem Jain MD / Bassem Jain MD Interpreting Provider: Bassem Jain MD Consult Discharge Plan - Plan Referrals: Emanuel Waters MD [Primary Care Provider] -
--- NOTE | 2016-12-31 12:33 | General Surgery Progress Note ---
<Marie Shine Jenaro - Last Filed: 12/31/16 12:35> Date of Encounter: 12/31/16 Time of Encounter: 12:30 - Assessment and Plan (1) Cholecystitis Current Visit: No Status: Acute HIDA scan is suggestive of acute/chronic cholecystitis- unable to visualize gallbaldder even after injection of morphine NPO Interventional Radiology consulted to cholecystostomy tube placement- notified per myself Supportive care/pain control INR- 1.4 (2) Cirrhosis of liver Current Visit: No Status: Chronic Management per medicine service Qualifiers: Hepatic cirrhosis type: alcoholic cirrhosis Ascites presence: without ascites Qualified Code(s): K70.30 - Alcoholic cirrhosis of liver without ascites (3) Alcoholism /alcohol abuse Current Visit: Yes Status: Chronic Monitor for withdrawal Management per medicine service (4) COPD (chronic obstructive pulmonary disease) Current Visit: Yes Status: Chronic Aerosols scheduled Incentive Spirometer every 1 hour while awake Management per medicine service Qualifiers: COPD type: emphysema Emphysema type: unspecified Qualified Code(s): J43.9 - Emphysema, unspecified (5) Atrial fibrillation Current Visit: No Status: Chronic Restart Cardizem at home dose Qualifiers: Atrial fibrillation type: chronic Qualified Code(s): I48.2 - Chronic atrial fibrillation (6) Essential hypertension Current Visit: Yes Status: Chronic hypertensive Management per medicine service (7) DVT prophylaxis Current Visit: Yes Status: Acute Continue heparin 5,000 units SQ twice daily for DVT prophylaxis Subjective Patient reports: no new complaints, still having pain (RUQ), pain is less ( intermittent), voiding w/o difficulty, no bowel movement, shortness of breath, afebrile Objective Vital Signs - Last 8 Hours Temp Pulse Resp BP Pulse Ox 12/31/16 10:35 98.3 F 93 20 161/81 93 L 12/31/16 08:55 97.6 F 89 20 160/79 93 L Intake and Output 12/30/16 12/31/16 12/31/16 23:59 07:59 15:59 Intake Total 1500 / 1500 1300 / 1300 0 / 0 Output Total 100 / 100 150 / 150 325 / 325 Balance 1400 / 1400 1150 / 1150 -325 / -325 Intake: IV Fluids 1500 / 1500 1300 / 1300 Vitamin B-1 100 MG 500 / 500 Folvite 1 MG M.v.i. Adult 10 ml In 0.9 % Sodium Chloride 500 ML @ 85.2 mls/hr IV DAILY [facility] Rx#: [id number] 0.9 % Sodium Chloride 1, 1000 / 1000 000 ML @ 100 mls/hr IVC . Q10H [facility] Rx#:[id number] KCl 20 mEq in 0.9% Sodium 700 / 700 Chloride 20 meq In 1,000 ml @ 100 mls/hr IVC . Q10H [facility] Rx#:[id number] Cipro 400 MG/200 ML 400 200 / 200 200 / 200 mg In 200 ml @ 200 mls/hr IVPB Q12HR [facility] Rx#: [id number] Flagyl 500 MG/100 ML 500 100 / 100 100 / 100 mg In 100 ml @ 100 mls/hr IVPB Q8H [facility] Rx#: [id number] Oral 0 / 0 0 / 0 0 / 0 Output: Urine 100 / 100 150 / 150 325 / 325 Other: Meal NPO Percent of Meal Consumed 0% # Voids 2 # Urine Diapers 2 3 1 Blood Glucose* 111 98 101 - General physical appearance moderate distress, moderate pain, chronically ill - Eyes normal ocular movement - ENT dry mucosa, atraumatic, normocephalic - Neck Neck exam: trachea midline - Respiratory clear to auscultation, other (mildly tachypnic, decreased bibasilar bases) - Cardiovascular Cardiovascular exam: Present: RRR - Abdomen Abdomen: Present: bowel sounds present, soft, tender Abdominal Tenderness: epigastic, RUQ - Genitourinary other (urine clear, yellow) - Neurologic CN 2-12 grossly intact - Psychiatric oriented to person, oriented to place, speech is normal - Labs 12/31/16 04:27 12/31/16 04:27 Diabetes panel 12/31/16 Range/Units 04:27 Sodium 132 L (136-145) mEq/L Potassium 3.9 (3.5-4.5) mEq/L Chloride 103 (98-109) mEq/L Carbon Dioxide 19 (19-29) mEq/L BUN 15 (8-26) mg/dL Creatinine 0.79 (0.72-1.25) mg/dL Glucose 97 (70-99) mg/dL Calcium 8.5 L (8.6-10.8) mg/dL AST 15 (5-34) Units/L ALT 9 (0-55) Units/L Alkaline Phosphatase 109 (38-126) Units/L Albumin 2.6 L (3.5-5.0) g/dL Calcium panel 12/31/16 Range/Units 04:27 Calcium 8.5 L (8.6-10.8) mg/dL Albumin 2.6 L (3.5-5.0) g/dL Pituitary panel 12/31/16 Range/Units 04:27 Sodium 132 L (136-145) mEq/L Potassium 3.9 (3.5-4.5) mEq/L Chloride 103 (98-109) mEq/L Carbon Dioxide 19 (19-29) mEq/L BUN 15 (8-26) mg/dL Creatinine 0.79 (0.72-1.25) mg/dL Glucose 97 (70-99) mg/dL Calcium 8.5 L (8.6-10.8) mg/dL Adrenal panel 12/31/16 Range/Units 04:27 Sodium 132 L (136-145) mEq/L Potassium 3.9 (3.5-4.5) mEq/L Chloride 103 (98-109) mEq/L Carbon Dioxide 19 (19-29) mEq/L BUN 15 (8-26) mg/dL Creatinine 0.79 (0.72-1.25) mg/dL Glucose 97 (70-99) mg/dL Calcium 8.5 L (8.6-10.8) mg/dL Total Bilirubin 1.3 H (0.2-1.2) mg/dL AST 15 (5-34) Units/L ALT 9 (0-55) Units/L Alkaline Phosphatase 109 (38-126) Units/L Albumin 2.6 L (3.5-5.0) g/dL Consult Discharge Plan - Plan Referrals: Emanuel Waters MD [Primary Care Provider] - - Attending Attestation I examined this patient and my medical decision-making was reviewed with the FINANCIAL LEGAL ASSISTANT/PA/Advanced Practice Nurse/Resident Physician. I agree with the documented findings, disposition and treatment plan as described except to the extent set forth below. <Hoa Fraire - Last Filed: 12/31/16 13:40> Date of Encounter: 12/31/16 - Assessment and Plan (1) Alcoholism /alcohol abuse Current Visit: Yes Status: Chronic (2) COPD (chronic obstructive pulmonary disease) Current Visit: Yes Status: Chronic Qualifiers: COPD type: emphysema Emphysema type: unspecified Qualified Code(s): J43.9 - Emphysema, unspecified (3) Abdominal pain Current Visit: No Status: Acute Qualifiers: Abdominal location: right upper quadrant Qualified Code(s): R10.11 - Right upper quadrant pain (4) Elevated LFTs Current Visit: Yes Status: Acute decreased somewhat today, monitor (5) Acute cholecystitis Current Visit: Yes Status: Acute HIDA shows likely acute vs chronic cholecystitis with nonfilling of the gallbladder. Due to patients cirrhoisis (child morgan B) and other comorbidities will plan percutaneous cholecystostomy tube today by IR. Discussed with patient Subjective Patient reports: no new complaints, still having pain, pain is less, no bowel movement, shortness of breath, afebrile Objective Vital Signs - Last 8 Hours Temp Pulse Resp BP Pulse Ox 12/31/16 10:35 98.3 F 93 20 161/81 93 L 12/31/16 08:55 97.6 F 89 20 160/79 93 L Intake and Output 12/30/16 12/31/16 12/31/16 23:59 07:59 15:59 Intake Total 1500 / 1500 1300 / 1300 0 / 0 Output Total 100 / 100 150 / 150 325 / 325 Balance 1400 / 1400 1150 / 1150 -325 / -325 Intake: IV Fluids 1500 / 1500 1300 / 1300 Vitamin B-1 100 MG 500 / 500 Folvite 1 MG M.v.i. Adult 10 ml In 0.9 % Sodium Chloride 500 ML @ 85.2 mls/hr IV DAILY [facility] Rx#: [id number] 0.9 % Sodium Chloride 1, 1000 / 1000 000 ML @ 100 mls/hr IVC . Q10H [facility] Rx#:[id number] KCl 20 mEq in 0.9% Sodium 700 / 700 Chloride 20 meq In 1,000 ml @ 100 mls/hr IVC . Q10H [facility] Rx#:[id number] Cipro 400 MG/200 ML 400 200 / 200 200 / 200 mg In 200 ml @ 200 mls/hr IVPB Q12HR [facility] Rx#: [id number] Flagyl 500 MG/100 ML 500 100 / 100 100 / 100 mg In 100 ml @ 100 mls/hr IVPB Q8H [facility] Rx#: [id number] Oral 0 / 0 0 / 0 0 / 0 Output: Urine 100 / 100 150 / 150 325 / 325 Other: Meal Lunch Percent of Meal Consumed 0% # Voids 2 # Urine Diapers 2 3 1 Blood Glucose* 111 98 101 - General physical appearance moderate distress, moderate pain, cachectic, chronically ill - Eyes PERRL, normal ocular movement - ENT dry mucosa, atraumatic, normocephalic - Neck Neck exam: trachea midline - Respiratory clear to auscultation - Cardiovascular Cardiovascular exam: Present: RRR - Neurologic CN 2-12 grossly intact - Musculoskeletal normal posture - Psychiatric oriented to person, oriented to place, speech is normal - Labs 12/31/16 04:27 12/31/16 04:27 Short CBC 12/31/16 Range/Units 04:27 WBC 11.7 H (4.3-11.1) K/mcL Hgb 12.7 L (12.9-16.9) g/dL Hct 38.0 (37.5-50.1) % Plt Count 109 L (140-400) K/mcL Neutrophils # 9.4 H (1.6-8.9) K/mcL BMP 12/31/16 Range/Units 04:27 Sodium 132 L (136-145) mEq/L Potassium 3.9 (3.5-4.5) mEq/L Chloride 103 (98-109) mEq/L Carbon Dioxide 19 (19-29) mEq/L BUN 15 (8-26) mg/dL Creatinine 0.79 (0.72-1.25) mg/dL Glucose 97 (70-99) mg/dL Calcium 8.5 L (8.6-10.8) mg/dL Cardiac Enzymes 12/30/16 12/30/16 Range/Units 18:30 12:27 Troponin I 0.02 0.02 (0-0.03) ng/mL Liver Function 12/31/16 Range/Units 04:27 Total Bilirubin 1.3 H (0.2-1.2) mg/dL Direct Bilirubin 0.8 H (0.0-0.5) mg/dL AST 15 (5-34) Units/L ALT 9 (0-55) Units/L Alkaline Phosphatase 109 (38-126) Units/L Albumin 2.6 L (3.5-5.0) g/dL Urine 12/31/16 Range/Units 00:27 Urine Color Yellow (Yellow) Urine Clarity Clear (Clear) Urine pH 6.5 (5.0-8.0) pH Units Ur Specific [place] 1.016 (1.010-1.025) Urine Protein 100 H (Neg-Trace) mg/dL Urine Glucose (UA) Normal (Normal) mg/dL Vital Signs Temp Pulse Resp BP Pulse Ox 12/31/16 10:35 98.3 F 93 20 161/81 93 L 12/31/16 08:55 97.6 F 89 20 160/79 93 L 12/31/16 03:50 97.8 F 114 20 168/87 93 L 12/31/16 00:26 98.5 F 110 18 163/68 95 12/30/16 23:05 91 L 12/30/16 20:43 98.2 F 115 18 154/83 95 12/30/16 19:59 19 86 L Intake and Output 12/30/16 12/31/16 12/31/16 23:59 07:59 15:59 Intake Total 1500 / 1500 1300 / 1300 0 / 0 Output Total 100 / 100 150 / 150 325 / 325 Balance 1400 / 1400 1150 / 1150 -325 / -325 Intake: IV Fluids 1500 / 1500 1300 / 1300 Vitamin B-1 100 MG 500 / 500 Folvite 1 MG M.v.i. Adult 10 ml In 0.9 % Sodium Chloride 500 ML @ 85.2 mls/hr IV DAILY [facility] Rx#: [id number] 0.9 % Sodium Chloride 1, 1000 / 1000 000 ML @ 100 mls/hr IVC . Q10H [facility] Rx#:[id number] KCl 20 mEq in 0.9% Sodium 700 / 700 Chloride 20 meq In 1,000 ml @ 100 mls/hr IVC . Q10H [facility] Rx#:[id number] Cipro 400 MG/200 ML 400 200 / 200 200 / 200 mg In 200 ml @ 200 mls/hr IVPB Q12HR [facility] Rx#: [id number] Flagyl 500 MG/100 ML 500 100 / 100 100 / 100 mg In 100 ml @ 100 mls/hr IVPB Q8H [facility] Rx#: [id number] Oral 0 / 0 0 / 0 0 / 0 Output: Urine 100 / 100 150 / 150 325 / 325 Other: Meal Lunch Percent of Meal Consumed 0% # Voids 2 # Urine Diapers 2 3 1 Blood Glucose* 111 98 101 - Imaging Additional Studies: GLADYS report reviewed
[2016-12-31] MEDS: Diltiazem CD (24hr) 180 MG CAPSULE PO SCH (13:00)
[2016-12-31] MEDS ORDERED: 0.9 % Sodium Chloride 500 ML ONE (14:55)
[2016-12-31] MEDS: *HR* FentaNYL (PF) 100 MCG/2 ML VIAL IVP PRN ×2 (15:14→15:19)
--- NOTE | 2016-12-31 15:24 | IR Procedure Note ---
Date of procedure: 12/31/16 Consent Obtained: Written consent Timeout: Correct patient and procedure verified, Time out performed, Skin prep completed Local anesthetic: Lidocaine 1% Indications: Cholecystitis Procedure Performed: Cholecystostomy placement Results/Findings: CT guided 8.5F cholecystostomy placement. Unable to place 10F Complications: None; Tolerated procedure well (Monitor on floor)
--- NOTE | 2016-12-31 15:28 | Internal Med Progress Note ---
<Jamie Cárdenas - Last Filed: 12/31/16 15:25> Date of Encounter: 12/31/16 Time of Encounter: 15:26 - Assessment and plan (1) Acute cholecystitis Current Visit: Yes Status: Acute Assessment and plan: Abd CT and RUQ u/s done, possible early chlecystitis, surgery consulted, HIDA scan showed acute/chronic cholecystitis, surgery call ed IR for placement of cholecystostomy tube, will follow surgery's recommendation. (2) Alcohol abuse Current Visit: Yes Status: Acute Assessment and plan: CIWA protocol with prn Ativan and daily rally pack. (3) Cirrhosis of liver Current Visit: No Status: Chronic Assessment and plan: F/u with GI as outpt, from alcohol abuse. Qualifiers: Hepatic cirrhosis type: alcoholic cirrhosis Ascites presence: without ascites Qualified Code(s): K70.30 - Alcoholic cirrhosis of liver without ascites (4) DVT prophylaxis Current Visit: Yes Status: Acute Assessment and plan: Heparin SQ. - Subjective Interval history: Pt seen and examined, pt is more awake today, still having RUQ pain, no nausea/ emesis or diarrhea. - Constitutional Vitals: Temp Pulse Resp BP Pulse Ox 98.3 F 93 20 161/81 93 L 12/31/16 10:35 12/31/16 10:35 12/31/16 10:35 12/31/16 10:35 12/31/16 10:35 General appearance: Present: cooperative, A&O X 3, no acute distress, answers questions appropriately - Head Head exam: Present: atraumatic, normocephalic - Eye Eye exam: Present: PERRL, conjuntiva pink, sclera anicteric Pupils: Present: PERRL - Neck Neck exam general surgery: Present: supple, trachea midline. Absent: lymphadenopathy - Respiratory Respiratory exam: Present: CTAB. Absent: accessory muscle use, rales, rhonchi, wheezes - Cardiovascular Cardiovascular exam: Present: RRR, +S1, +S2. Absent: diastolic murmur, gallop, rubs, systolic murmur - GI/Abdominal GI/Abdominal exam: Present: normal bowel sounds, soft, tenderness (to touch on RUQ), no peritoneal signs. Absent: distended - Extremities Exam Extremities exam: Present: warm, radial pulses palpable and symetrical. Absent : calf tenderness, cyanotic, pedal edema - Neurological Exam Neurological exam: Present: CN II-XII intact, oriented X3, no focal deficits. Absent: pronater drift, facial droop, speech deficit - Skin Skin exam: Present: dry, intact Internal Medicine: Result - Labs CBC & Chem 7: 12/31/16 04:27 12/31/16 04:27 Labs: Short CBC 12/31/16 Range/Units 04:27 WBC 11.7 H (4.3-11.1) K/mcL Hgb 12.7 L (12.9-16.9) g/dL Hct 38.0 (37.5-50.1) % Plt Count 109 L (140-400) K/mcL Neutrophils # 9.4 H (1.6-8.9) K/mcL BMP 12/31/16 04:27 Sodium 132 L Potassium 3.9 Chloride 103 Carbon Dioxide 19 BUN 15 Creatinine 0.79 Glucose 97 Calcium 8.5 L Cardiac Enzymes 12/30/16 Range/Units 18:30 Troponin I 0.02 (0-0.03) ng/mL Liver Function 12/31/16 Range/Units 04:27 Total Bilirubin 1.3 H (0.2-1.2) mg/dL Direct Bilirubin 0.8 H (0.0-0.5) mg/dL AST 15 (5-34) Units/L ALT 9 (0-55) Units/L Alkaline Phosphatase 109 (38-126) Units/L Albumin 2.6 L (3.5-5.0) g/dL Urine 12/31/16 Range/Units 00:27 Urine Color Yellow (Yellow) Urine Clarity Clear (Clear) Urine pH 6.5 (5.0-8.0) pH Units Ur Specific [place] 1.016 (1.010-1.025) Urine Protein 100 H (Neg-Trace) mg/dL Urine Glucose (UA) Normal (Normal) mg/dL - ABG Interpretation ABG results: PT/INR, D-dimer PT 15.1 Seconds (9.4-12.1) H 12/30/16 12:27 - Impressions Impressions Bile Acid Absorption NM 12/31/16 07:00 IMPRESSION: The cystic duct is not demonstrated as patent, suggestive of acute or chronic cholecystitis. Common duct is patent. D/ / Kendall Xie MD / Kendall Xie MD Interpreting Provider: Kendall Xie MD Consult Discharge Plan - Plan Referrals: Emanuel Waters MD [Primary Care Provider] - <Eric Puentes - Last Filed: 12/31/16 15:56> - Constitutional Vitals: Temp Pulse Resp BP Pulse Ox 98.3 F 93 20 161/81 93 L 12/31/16 10:35 12/31/16 10:35 12/31/16 10:35 12/31/16 10:35 12/31/16 10:35 Internal Medicine: Result - Labs CBC & Chem 7: 12/31/16 04:27 12/31/16 04:27 Labs: Short CBC 12/31/16 Range/Units 04:27 WBC 11.7 H (4.3-11.1) K/mcL Hgb 12.7 L (12.9-16.9) g/dL Hct 38.0 (37.5-50.1) % Plt Count 109 L (140-400) K/mcL Neutrophils # 9.4 H (1.6-8.9) K/mcL BMP 12/31/16 04:27 Sodium 132 L Potassium 3.9 Chloride 103 Carbon Dioxide 19 BUN 15 Creatinine 0.79 Glucose 97 Calcium 8.5 L Cardiac Enzymes 12/30/16 Range/Units 18:30 Troponin I 0.02 (0-0.03) ng/mL Liver Function 12/31/16 Range/Units 04:27 Total Bilirubin 1.3 H (0.2-1.2) mg/dL Direct Bilirubin 0.8 H (0.0-0.5) mg/dL AST 15 (5-34) Units/L ALT 9 (0-55) Units/L Alkaline Phosphatase 109 (38-126) Units/L Albumin 2.6 L (3.5-5.0) g/dL Urine 12/31/16 Range/Units 00:27 Urine Color Yellow (Yellow) Urine Clarity Clear (Clear) Urine pH 6.5 (5.0-8.0) pH Units Ur Specific [place] 1.016 (1.010-1.025) Urine Protein 100 H (Neg-Trace) mg/dL Urine Glucose (UA) Normal (Normal) mg/dL - ABG Interpretation ABG results: PT/INR, D-dimer PT 15.1 Seconds (9.4-12.1) H 12/30/16 12:27 - Impressions Impressions Retroperitoneal Abscess Drainage 12/31/16 00:00 IMPRESSION: 1. CT guided cholecystostomy placement as discussed above. D/ / Ronald Gorman MD / Ronald Gorman MD Interpreting Provider: Ronald Gorman MD Bile Acid Absorption NM 12/31/16 07:00 IMPRESSION: The cystic duct is not demonstrated as patent, suggestive of acute or chronic cholecystitis. Common duct is patent. D/ / Kendall Xie MD / Kendall Xie MD Interpreting Provider: Kendall Xie MD - Attending Attestation Mr. Manzo was seen and examined during rounds. He looks more alert than yesterday. He has pain upon palpation of the right upper quadrant. He was evaluated by the surgical team, he underwent HIDA scan today. Recommendation is to proceed with cholecystostomy. We will continue with IV antibiotics and monitoring the patient closely.
[2016-12-31] MEDS: Temazepam 15 MG CAPSULE PO PRN (21:24)
[2017-01-01] MEDS: MetroNIDAZOLE 500 MG/100 ML 500 MG/100 ML BAG IVPB SCH ×4 (00:10→23:39)
[2017-01-01] MEDS: Acetaminophen 325 MG TABLET PO PRN ×2 (01:49→20:13)
[2017-01-01] MEDS: *HR* Morphine 2 MG/ML SYRINGE IVP PRN ×9 (02:07→23:38)
[2017-01-01] MEDS: Ipratropium/Albuterol Neb 3 ML IH SCH ×6 (02:19→20:40)
[2017-01-01 05:09] LABS: Basophils % 0.2 %; Eosinophils % 0.3 %; Hematocrit 36.1 % (37.5-50.1); Immature Granulocytes % 0.9 % (0-4); Lymphocytes # 0.8 K/mcL (0.6-4.6); Lymphocytes % 8.6 %; Mean Corpuscular HGB Conc 33.2 g/dL (31.6-35.5); Mean Corpuscular Hemoglobin 31.9 pg (28.0-33.3); Monocytes # 1.1 K/mcL (0.0-1.3); Monocytes % 12.6 %; Neutrophils # 6.7 K/mcL (1.6-8.9); Platelet Count 119 K/mcL (140-400); Red Blood Count 3.76 M/mcL (4.19-5.50); Red Cell Distribution Width 14.6 % (11.5-14.5); Segmented Neutrophils % 77.4 %
[2017-01-01] MEDS: *HR* Heparin 5,000 UNIT/ML VIAL SQ SCH ×2 (05:19→18:02)
[2017-01-01 05:31] LABS: BUN/Creatinine Ratio 20 (6-26); Blood Urea Nitrogen 15 mg/dL (8-26); Calcium 8.3 mg/dL (8.6-10.8); Carbon Dioxide 16 mEq/L (19-29); Chloride 108 mEq/L (98-109); Glucose 100 mg/dL (70-99); Osmolality,Calculated 283 (280-300); Potassium 3.5 mEq/L (3.5-4.5); Sodium 136 mEq/L (136-145); eGFR For African Americans > 60 (> 60); eGFR For Non-African Americans > 60 (> 60)
--- NOTE | 2017-01-01 07:48 | Internal Med Progress Note ---
<Jamie Cárdenas - Last Filed: 01/01/17 16:31> Date of Encounter: 01/01/17 Time of Encounter: 07:48 - Assessment and plan (1) Acute cholecystitis Current Visit: Yes Status: Acute Assessment and plan: Abd CT and RUQ u/s done, possible early chlecystitis, surgery consulted, HIDA scan showed acute/chronic cholecystitis, surgery call ed IR for placement of cholecystostomy tube, discussed the case with surgery team today, will start clear liquid diet today. (2) Sepsis Current Visit: Yes Status: Acute Assessment and plan: Resolved, likely 2/2 acute cholecystitis, con't abxs. Qualifiers: Qualified Code(s): A41.9 - Sepsis, unspecified organism (3) Alcohol abuse Current Visit: Yes Status: Acute Assessment and plan: CIWA protocol with prn Ativan and daily rally pack. (4) Cirrhosis of liver Current Visit: No Status: Chronic Assessment and plan: F/u with GI as outpt, from alcohol abuse. Qualifiers: Hepatic cirrhosis type: alcoholic cirrhosis Ascites presence: without ascites Qualified Code(s): K70.30 - Alcoholic cirrhosis of liver without ascites (5) DVT prophylaxis Current Visit: Yes Status: Acute Assessment and plan: Heparin SQ. - Subjective Interval history: Pt seen and examined, pt states that RUQ pain is slightly better than yesterday , but he is really hungry and thirsty. - Constitutional Vitals: Temp Pulse Resp BP Pulse Ox 97.5 F L 81 16 143/75 94 L 01/01/17 07:38 01/01/17 07:38 01/01/17 07:38 01/01/17 07:38 01/01/17 07:38 General appearance: Present: cooperative, A&O X 3, no acute distress, answers questions appropriately - Head Head exam: Present: atraumatic, normocephalic - Eye Eye exam: Present: PERRL, conjuntiva pink, sclera anicteric Pupils: Present: PERRL - Neck Neck exam general surgery: Present: supple, trachea midline. Absent: lymphadenopathy - Respiratory Respiratory exam: Present: CTAB. Absent: accessory muscle use, rales, rhonchi, wheezes - Cardiovascular Cardiovascular exam: Present: RRR, +S1, +S2. Absent: diastolic murmur, gallop, rubs, systolic murmur - GI/Abdominal GI/Abdominal exam: Present: normal bowel sounds, soft, tenderness (to palpation on RUQ, gallbladder tube placed), no peritoneal signs. Absent: distended - Extremities Exam Extremities exam: Present: warm, radial pulses palpable and symetrical. Absent : calf tenderness, cyanotic, pedal edema - Neurological Exam Neurological exam: Present: CN II-XII intact, oriented X3, no focal deficits. Absent: pronater drift, facial droop, speech deficit - Skin Skin exam: Present: dry, intact Internal Medicine: Result - Labs CBC & Chem 7: 01/01/17 04:25 01/01/17 04:25 Labs: Short CBC 01/01/17 Range/Units 04:25 WBC 8.7 (4.3-11.1) K/mcL Hgb 12.0 L (12.9-16.9) g/dL Hct 36.1 L (37.5-50.1) % Plt Count 119 L (140-400) K/mcL Neutrophils # 6.7 (1.6-8.9) K/mcL BMP 01/01/17 04:25 Sodium 136 Potassium 3.5 Chloride 108 Carbon Dioxide 16 L BUN 15 Creatinine 0.75 Glucose 100 H Calcium 8.3 L Liver Function 01/01/17 Range/Units 04:25 Total Bilirubin 1.0 (0.2-1.2) mg/dL - ABG Interpretation ABG results: PT/INR, D-dimer PT 15.1 Seconds (9.4-12.1) H 12/30/16 12:27 - Impressions Impressions Retroperitoneal Abscess Drainage 12/31/16 00:00 IMPRESSION: 1. CT guided cholecystostomy placement as discussed above. D/ / Ronald Gorman MD / Ronald Gorman MD Interpreting Provider: Ronald Gorman MD Bile Acid Absorption NM 12/31/16 07:00 IMPRESSION: The cystic duct is not demonstrated as patent, suggestive of acute or chronic cholecystitis. Common duct is patent. D/ / Kendall Xie MD / Kendall Xie MD Interpreting Provider: Kendall Xie MD Consult Discharge Plan - Plan Referrals: Emanuel Waters MD [Primary Care Provider] - <Eric Puentes - Last Filed: 01/01/17 17:54> - Constitutional Vitals: Temp Pulse Resp BP Pulse Ox 98.9 F 97 16 145/98 95 01/01/17 15:22 01/01/17 15:22 01/01/17 16:33 01/01/17 15:22 01/01/17 16:33 Internal Medicine: Result - Labs CBC & Chem 7: 01/01/17 04:25 01/01/17 04:25 Labs: Short CBC 01/01/17 Range/Units 04:25 WBC 8.7 (4.3-11.1) K/mcL Hgb 12.0 L (12.9-16.9) g/dL Hct 36.1 L (37.5-50.1) % Plt Count 119 L (140-400) K/mcL Neutrophils # 6.7 (1.6-8.9) K/mcL BMP 01/01/17 04:25 Sodium 136 Potassium 3.5 Chloride 108 Carbon Dioxide 16 L BUN 15 Creatinine 0.75 Glucose 100 H Calcium 8.3 L Liver Function 01/01/17 Range/Units 04:25 Total Bilirubin 1.0 (0.2-1.2) mg/dL - ABG Interpretation ABG results: PT/INR, D-dimer PT 15.1 Seconds (9.4-12.1) H 12/30/16 12:27 - Attending Attestation I examined this patient and my medical decision-making was reviewed with the BIOMEDICAL SCIENTIST/PA/Advanced Practice Nurse/Resident Physician. I agree with the documented findings, disposition and treatment plan as described except to the extent set forth below. Mr. Manzo was seen and examined during rounds. She underwent a cholecystostomy yesterday. We will continue with IV fluids and IV antibiotics. Follow recommendations by surgical team.
[2017-01-01] MEDS: Thiamine (B-1) 100 MG, Folic Acid 1 MG, MVI, adult with vitamin K 10 ML in 0.9 % Sodi... IV SCH (08:23)
[2017-01-01] MEDS: D5% in 0.9% NACL 1,000 ML IVC SCH ×2 (08:23→23:51)
[2017-01-01] MEDS: Diltiazem CD (24hr) 180 MG CAPSULE PO SCH (08:24)
[2017-01-01] MEDS: Pantoprazole 40 MG VIAL IVP SCH (08:24)
--- NOTE | 2017-01-01 10:16 | General Surgery Progress Note ---
Date of Encounter: 01/01/17 Time of Encounter: 10:00 - Assessment and Plan (1) Acute cholecystitis Current Visit: Yes Status: Acute The patient has had sequential improvement in leukocytosis, abdominal pain, and bilirubin since placement of the cholecystostomy tube. I think is reasonable to start him on clear liquid diet. Subjective Narrative: The patient states that he is having less pain today. His right upper quadrant is soft and nontender. He is hungry. The cholecystostomy drain is draining clear green bile. I think is perfectly reasonable to start him on clear liquid diet. Objective Vital Signs - Last 8 Hours Temp Pulse Resp BP Pulse Ox 01/01/17 08:42 18 90 L 01/01/17 07:38 97.5 F L 81 16 143/75 94 L 01/01/17 05:20 97.7 F 85 20 142/79 95 01/01/17 04:56 94 L 01/01/17 04:55 22 94 L 01/01/17 02:19 20 92 L Intake and Output 12/31/16 01/01/17 01/01/17 23:59 07:59 15:59 Intake Total 1811.2 / 1811.2 300 / 300 Output Total 100 / 100 175 / 175 Balance 1711.2 / 1711.2 125 / 125 Intake: IV Fluids 1811.2 / 1811.2 300 / 300 Vitamin B-1 100 MG 511.2 / 511.2 Folvite 1 MG M.v.i. Adult 10 ml In 0.9 % Sodium Chloride 500 ML @ 85.2 mls/hr IV DAILY [facility] Rx#: [id number] 0.9 % Sodium Chloride 1, 1000 / 1000 000 ML @ 100 mls/hr IVC . Q10H [facility] Rx#:[id number] Cipro 400 MG/200 ML 400 200 / 200 200 / 200 mg In 200 ml @ 200 mls/hr IVPB Q12HR [facility] Rx#: [id number] Flagyl 500 MG/100 ML 500 100 / 100 100 / 100 mg In 100 ml @ 100 mls/hr IVPB Q8H [facility] Rx#: [id number] Oral 0 / 0 Output: Wound Drainage 100 / 100 175 / 175 Right Upper Abdomen 100 / 100 175 / 175 Other: Meal Dinner Percent of Meal Consumed 0% # Urine Diapers 1 1 Blood Glucose* 86 101 - General physical appearance no pain, chronically ill, other (Moderate resting dyspnea) - Neck Neck exam: no masses, no lymphadectomy - Respiratory normal expansion, normal respiratory effort, clear to percussion, clear to auscultation - Cardiovascular Cardiovascular exam: Present: RRR, no murmurs/rubs/gallops - Abdomen Abdomen: Present: bowel sounds present, soft, non tender Additional Comments: Cholecystostomy drain is functioning and draining clear green bile - Neurologic normal coordination, normal sensation - Psychiatric oriented to time, oriented to person, oriented to place, speech is normal, memory intact - Labs 01/01/17 04:25 01/01/17 04:25 Diabetes panel 01/01/17 Range/Units 04:25 Sodium 136 (136-145) mEq/L Potassium 3.5 (3.5-4.5) mEq/L Chloride 108 (98-109) mEq/L Carbon Dioxide 16 L (19-29) mEq/L BUN 15 (8-26) mg/dL Creatinine 0.75 (0.72-1.25) mg/dL Glucose 100 H (70-99) mg/dL Calcium 8.3 L (8.6-10.8) mg/dL Calcium panel 01/01/17 Range/Units 04:25 Calcium 8.3 L (8.6-10.8) mg/dL Pituitary panel 01/01/17 Range/Units 04:25 Sodium 136 (136-145) mEq/L Potassium 3.5 (3.5-4.5) mEq/L Chloride 108 (98-109) mEq/L Carbon Dioxide 16 L (19-29) mEq/L BUN 15 (8-26) mg/dL Creatinine 0.75 (0.72-1.25) mg/dL Glucose 100 H (70-99) mg/dL Calcium 8.3 L (8.6-10.8) mg/dL Adrenal panel 01/01/17 Range/Units 04:25 Sodium 136 (136-145) mEq/L Potassium 3.5 (3.5-4.5) mEq/L Chloride 108 (98-109) mEq/L Carbon Dioxide 16 L (19-29) mEq/L BUN 15 (8-26) mg/dL Creatinine 0.75 (0.72-1.25) mg/dL Glucose 100 H (70-99) mg/dL Calcium 8.3 L (8.6-10.8) mg/dL Total Bilirubin 1.0 (0.2-1.2) mg/dL Consult Discharge Plan - Plan Referrals: Emanuel Waters MD [Primary Care Provider] -
[2017-01-01] MEDS: Temazepam 15 MG CAPSULE PO PRN (20:12)
[2017-01-02] MEDS: Ipratropium/Albuterol Neb 3 ML IH SCH ×7 (01:18→23:17)
[2017-01-02] MEDS: Acetaminophen 325 MG TABLET PO PRN ×2 (02:04→20:57)
[2017-01-02] MEDS: *HR* Morphine 2 MG/ML SYRINGE IVP PRN ×6 (02:04→14:30)
[2017-01-02] MEDS: 0.9 % Sodium Chloride w KCl 20 MEQ/1,000 ML MLS IVC SCH (03:04)
[2017-01-02] MEDS: *HR* Heparin 5,000 UNIT/ML VIAL SQ SCH ×2 (05:20→16:50)
[2017-01-02] MEDS: Diltiazem CD (24hr) 180 MG CAPSULE PO SCH (07:37)
[2017-01-02] MEDS: MetroNIDAZOLE 500 MG/100 ML 500 MG/100 ML BAG IVPB SCH ×2 (07:37→16:50)
[2017-01-02] MEDS: Pantoprazole 40 MG VIAL IVP SCH (07:37)
--- NOTE | 2017-01-02 07:48 | Internal Med Progress Note ---
<Jamie Cárdenas - Last Filed: 01/02/17 16:09> Date of Encounter: 01/02/17 Time of Encounter: 07:48 - Assessment and plan (1) Acute cholecystitis Current Visit: Yes Status: Acute Assessment and plan: Abd CT and RUQ u/s done, possible early chlecystitis, surgery consulted, HIDA scan showed acute/chronic cholecystitis, surgery call ed IR for placement of cholecystostomy tube, discussed the case with surgery team today, will advance to full liquid diet today, surgery will decide when to remove the tube. (2) Sepsis Current Visit: Yes Status: Acute Assessment and plan: Resolved, likely 2/2 acute cholecystitis, con't abxs. Qualifiers: Qualified Code(s): A41.9 - Sepsis, unspecified organism (3) Alcohol abuse Current Visit: Yes Status: Acute Assessment and plan: CIWA protocol with prn Ativan and daily rally pack. (4) Cirrhosis of liver Current Visit: No Status: Chronic Assessment and plan: F/u with GI as outpt, from alcohol abuse. Qualifiers: Hepatic cirrhosis type: alcoholic cirrhosis Ascites presence: without ascites Qualified Code(s): K70.30 - Alcoholic cirrhosis of liver without ascites (5) DVT prophylaxis Current Visit: Yes Status: Acute Assessment and plan: Heparin SQ. - Subjective Interval history: Pt seen and examined, pt states he has slight RUQ pain this AM, he does not like clear liquid diet because of taste, not because of appetite or nausea/ emesis. - Constitutional Vitals: Temp Pulse Resp BP Pulse Ox 98.0 F 89 17 138/68 95 01/02/17 07:19 01/02/17 07:19 01/02/17 07:19 01/02/17 07:19 01/02/17 07:19 General appearance: Present: cooperative, A&O X 3, no acute distress, answers questions appropriately - Head Head exam: Present: atraumatic, normocephalic - Eye Eye exam: Present: PERRL, conjuntiva pink, sclera anicteric Pupils: Present: PERRL - Neck Neck exam general surgery: Present: supple, trachea midline. Absent: lymphadenopathy - Respiratory Respiratory exam: Present: decreased breath sounds (at base b/l). Absent: accessory muscle use, rales, rhonchi, wheezes - Cardiovascular Cardiovascular exam: Present: RRR, +S1, +S2. Absent: diastolic murmur, gallop, rubs, systolic murmur - GI/Abdominal GI/Abdominal exam: Present: normal bowel sounds, soft, tenderness (in RUQ with gallbladder tube in place), no peritoneal signs. Absent: distended - Extremities Exam Extremities exam: Present: warm, radial pulses palpable and symetrical. Absent : calf tenderness, cyanotic, pedal edema - Neurological Exam Neurological exam: Present: CN II-XII intact, oriented X3, no focal deficits. Absent: pronater drift, facial droop, speech deficit - Skin Skin exam: Present: dry, intact Internal Medicine: Result - Labs CBC & Chem 7: 01/01/17 04:25 01/01/17 04:25 - ABG Interpretation ABG results: PT/INR, D-dimer PT 15.1 Seconds (9.4-12.1) H 12/30/16 12:27 Consult Discharge Plan - Plan Referrals: Emanuel Waters MD [Primary Care Provider] - <Eric Puentes - Last Filed: 01/02/17 17:32> - Constitutional Vitals: Temp Pulse Resp BP Pulse Ox 98.1 F 76 18 141/71 92 L 01/02/17 15:00 01/02/17 15:00 01/02/17 15:00 01/02/17 15:00 01/02/17 15:00 Internal Medicine: Result - Labs CBC & Chem 7: 01/01/17 04:25 01/01/17 04:25 - ABG Interpretation ABG results: PT/INR, D-dimer PT 15.1 Seconds (9.4-12.1) H 12/30/16 12:27 - Attending Attestation I examined this patient and my medical decision-making was reviewed with the [employer] OFFICER/PA/Advanced Practice Nurse/Resident Physician. I agree with the documented findings, disposition and treatment plan as described except to the extent set forth below. . Patient with underlying cirrhosis, chronic alcohol abuse. Admitted due to acute cholecystitis. Surgery decided not to do cholecystectomy and recommended IR guided cholecystostomy which was performed on Tuesday. Doing well, advance diet. Follow recommendations by surgery. Continue IV antibiotics, he is on Cipro and Flagyl.
[2017-01-02] MEDS: Thiamine (B-1) 100 MG, Folic Acid 1 MG, MVI, adult with vitamin K 10 ML in 0.9 % Sodi... IVPB SCH ×2 (08:42→16:54)
[2017-01-02] MEDS: Magnesium Oxide 400 MG TABLET PO SCH ×2 (10:01→20:57)
--- NOTE | 2017-01-02 10:08 | General Surgery Progress Note ---
Date of Encounter: 01/02/17 Time of Encounter: 10:00 - Assessment and Plan (1) Acute cholecystitis Current Visit: Yes Status: Acute The patient has had sequential improvement in leukocytosis, abdominal pain, and bilirubin since placement of the cholecystostomy tube. I think is reasonable to start him on clear liquid diet. 01/02/2017. The patient is clinically improved with resolution of leukocytosis and normalization of liver function tests. The cholecystostomy tube dysfunction normally. His lungs have improved and are now clear to auscultation. Further treatment planning on Tuesday. Subjective Narrative: The patient overall is in much better condition. His white cell count has normalized. Liver function tests have normalized. He still complains of pain in the right upper quadrant. The biliary cholecystostomy drain drained 300 mL yesterday and 100 mL today overall the patient complains of mild right upper quadrant discomfort. No shakes chills or fever. No evidence of ascending cholangitis. Objective Vital Signs - Last 8 Hours Temp Pulse Resp BP Pulse Ox 01/02/17 07:54 16 97 01/02/17 07:19 98.0 F 89 17 138/68 95 01/02/17 04:17 18 95 01/02/17 03:56 98.0 F 72 18 155/72 95 Intake and Output 01/01/17 01/02/17 01/02/17 23:59 07:59 15:59 Intake Total 1900 / 1900 3566.2 / 3566.2 220 / 220 Output Total 225 / 225 Balance 1900 / 1900 3341.2 / 3341.2 220 / 220 Intake: IV Fluids 1300 / 1300 2566.2 / 2566.2 100 / 100 Vitamin B-1 100 MG 511.2 / 511.2 Folvite 1 MG M.v.i. Adult 10 ml In 0.9 % Sodium Chloride 500 ML @ 85.2 mls/hr IV DAILY [facility] Rx#: [id number] D5% And 0.9% Nacl 1000 Ml 1000 / 1000 645 / 645 1,000 ML @ 100 mls/hr IVC .Q10H [facility] Rx#: [id number] Cipro 400 MG/200 ML 400 200 / 200 200 / 200 mg In 200 ml @ 200 mls/hr IVPB Q12HR [facility] Rx#: [id number] Flagyl 500 MG/100 ML 500 100 / 100 100 / 100 100 / 100 mg In 100 ml @ 100 mls/hr IVPB Q8H [facility] Rx#: [id number] Oral 600 / 600 1000 / 1000 120 / 120 Output: Wound Drainage 225 / 225 Right Upper Abdomen 225 / 225 Other: Meal Dinner Breakfast # Urine Diapers 1 1 Weight 61.689 kg Patient Weight 01/02/17 23:59 Weight 61.689 kg - General physical appearance chronically ill - Respiratory clear to percussion, clear to auscultation - Cardiovascular Cardiovascular exam: Present: RRR, no murmurs/rubs/gallops - Abdomen Abdomen: Present: bowel sounds present, soft, non tender (Cholecystostomy drain in place and functioning) - Integumentary no rash, no growths, no abnormal pigmentation - Psychiatric oriented to time, oriented to person, oriented to place, speech is normal, memory intact - Labs 01/01/17 04:25 01/01/17 04:25 Consult Discharge Plan - Plan Referrals: Emanuel Waters MD [Primary Care Provider] -
[2017-01-02] MEDS: *HR* OxyCODONE/APAP 5/325 TABLET PO PRN ×2 (16:50→23:06)
[2017-01-02] MEDS: D5% in 0.9% NACL 1,000 ML IVC SCH (20:56)
[2017-01-03] MEDS: D5% in 0.9% NACL 1,000 ML IVC SCH ×2 (00:25→00:26)
[2017-01-03] MEDS: MetroNIDAZOLE 500 MG/100 ML 500 MG/100 ML BAG IVPB SCH ×3 (00:27→17:01)
[2017-01-03] MEDS: Temazepam 15 MG CAPSULE PO PRN (01:40)
[2017-01-03] MEDS: Acetaminophen 325 MG TABLET PO PRN ×2 (03:37→20:33)
[2017-01-03] MEDS: Ipratropium/Albuterol Neb 3 ML IH SCH ×5 (04:15→20:55)
[2017-01-03 04:17] LABS: Magnesium 1.6 mg/dL (1.6-2.6)
[2017-01-03] MEDS: *HR* OxyCODONE/APAP 5/325 TABLET PO PRN ×3 (05:19→17:00)
[2017-01-03] MEDS: *HR* Heparin 5,000 UNIT/ML VIAL SQ SCH ×2 (06:10→17:53)
[2017-01-03 07:09] LABS: BUN/Creatinine Ratio 9 (6-26); Blood Urea Nitrogen 7 mg/dL (8-26); Calcium 7.9 mg/dL (8.6-10.8); Carbon Dioxide 16 mEq/L (19-29); Chloride 112 mEq/L (98-109); Glucose 125 mg/dL (70-99); Osmolality,Calculated 285 (280-300); Potassium 2.6 mEq/L (3.5-4.5); Sodium 138 mEq/L (136-145); eGFR For African Americans > 60 (> 60); eGFR For Non-African Americans > 60 (> 60)
[2017-01-03 07:22] LABS: Basophils % 0.5 %; Eosinophils # 0.2 K/mcL (0.0-0.6); Eosinophils % 2.9 %; Hematocrit 34.8 % (37.5-50.1); Hemoglobin 11.6 g/dL (12.9-16.9); Immature Granulocytes % 0.6 % (0-4); Lymphocytes # 1.2 K/mcL (0.6-4.6); Lymphocytes % 19.2 %; Mean Corpuscular HGB Conc 33.3 g/dL (31.6-35.5); Mean Corpuscular Hemoglobin 32.6 pg (28.0-33.3); Mean Corpuscular Volume 97.8 fL (83.0-100.0); Monocytes # 0.9 K/mcL (0.0-1.3); Monocytes % 13.8 %; Neutrophils # 3.9 K/mcL (1.6-8.9); Nucleated Red Blood Cells 0.3 /100 WBC (0); Platelet Count 147 K/mcL (140-400); Red Blood Count 3.56 M/mcL (4.19-5.50)
[2017-01-03] MEDS ORDERED: Potassium Chloride 40 MEQ, Lidocaine 1% 2 ML in D5% in Water 500 ML IVPB ONE (08:12)
[2017-01-03] MEDS ORDERED: Potassium Chloride 20 MEQ, Lidocaine 1% 2 ML in D5% in Water 250 ML IVPB ONE (08:12)
[2017-01-03] MEDS: Diltiazem CD (24hr) 240 MG CAPSULE PO SCH (08:46)
[2017-01-03] MEDS: Magnesium Oxide 400 MG TABLET PO SCH ×2 (08:46→20:34)
[2017-01-03] MEDS: Pantoprazole 40 MG VIAL IVP SCH (09:18)
--- NOTE | 2017-01-03 12:10 | General Surgery Progress Note ---
<Frank Sánchez - Last Filed: 01/03/17 12:03> Date of Encounter: 01/03/17 Time of Encounter: 10:25 - Assessment and Plan (1) Cholecystitis Current Visit: No Status: Acute IR placed CT guided 8.5F cholecystostomy on 12/31/16. Continued bilious drainage, will discharge with drain. Resolution of elevated bilirubin. Management of drain. Tolerating Full liquid diet. Supportive care/pain control. (2) Cirrhosis of liver Current Visit: No Status: Chronic management per medicine service. Qualifiers: Hepatic cirrhosis type: alcoholic cirrhosis Ascites presence: without ascites Qualified Code(s): K70.30 - Alcoholic cirrhosis of liver without ascites (3) Alcoholism /alcohol abuse Current Visit: Yes Status: Chronic (4) Atrial fibrillation Current Visit: No Status: Chronic management per medicine service. Qualifiers: Atrial fibrillation type: chronic Qualified Code(s): I48.2 - Chronic atrial fibrillation (5) COPD (chronic obstructive pulmonary disease) Current Visit: Yes Status: Chronic management per medicine service. Qualifiers: COPD type: emphysema Emphysema type: unspecified Qualified Code(s): J43.9 - Emphysema, unspecified Subjective Patient reports: no new complaints, feels better, still having pain, pain is less, tolerating liquids well, flatus, no bowel movement, afebrile Objective Vital Signs - Last 8 Hours Temp Pulse Resp BP Pulse Ox 01/03/17 11:03 98.2 F 77 16 141/83 94 L 01/03/17 07:49 97.5 F L 82 16 151/74 96 01/03/17 04:15 16 95 Intake and Output 01/02/17 01/03/17 01/03/17 23:59 07:59 15:59 Intake Total 1031.2 / 1031.2 1167 / 1167 340 / 340 Output Total 50 / 50 Balance 1031.2 / 1031.2 1117 / 1117 340 / 340 Intake: IV Fluids 811.2 / 811.2 1167 / 1167 100 / 100 D5% And 0.9% Nacl 1000 Ml 867 / 867 1,000 ML @ 100 mls/hr IVC .Q10H [facility] Rx#: [id number] Cipro 400 MG/200 ML 400 200 / 200 200 / 200 mg In 200 ml @ 200 mls/hr IVPB Q12HR [facility] Rx#: [id number] Flagyl 500 MG/100 ML 500 100 / 100 100 / 100 100 / 100 mg In 100 ml @ 100 mls/hr IVPB Q8H [facility] Rx#: [id number] Vitamin B-1 100 MG 511.2 / 511.2 Folvite 1 MG M.v.i. Adult 10 ml In 0.9 % Sodium Chloride 500 ML @ 85.2 mls/hr IVPB DAILY@1800 [facility] Rx#:[id number] Oral 220 / 220 240 / 240 Output: Wound Drainage 50 / 50 Right Upper Abdomen 50 / 50 Other: Meal Dinner Breakfast Percent of Meal Consumed 5% # Urine Diapers 1 1 2 Weight 61.954 kg Patient Weight 01/03/17 23:59 Weight 61.954 kg - General physical appearance well developed, well nourished, no distress - Eyes normal ocular movement - ENT normal mucosa, atraumatic, normocephalic - Neck Neck exam: trachea midline - Respiratory normal respiratory effort, clear to auscultation, other (upper airway wheezing) - Cardiovascular Cardiovascular exam: Present: RRR - Abdomen Abdomen: Present: bowel sounds present, soft, tender (only tender at site of cholecystotomy tube) - Incision Incision: Present: open (cholecystostomy tube RUQ) - Integumentary no rash - Neurologic CN 2-12 grossly intact - Psychiatric oriented to time, oriented to person, oriented to place, speech is normal, memory intact - Labs 01/03/17 03:48 01/03/17 03:48 Diabetes panel 01/03/17 Range/Units 03:48 Sodium 138 (136-145) mEq/L Potassium 2.6 L (3.5-4.5) mEq/L Chloride 112 H (98-109) mEq/L Carbon Dioxide 16 L (19-29) mEq/L BUN 7 L (8-26) mg/dL Creatinine 0.74 (0.72-1.25) mg/dL Glucose 125 H (70-99) mg/dL Calcium 7.9 L (8.6-10.8) mg/dL Calcium panel 01/03/17 Range/Units 03:48 Calcium 7.9 L (8.6-10.8) mg/dL Pituitary panel 01/03/17 Range/Units 03:48 Sodium 138 (136-145) mEq/L Potassium 2.6 L (3.5-4.5) mEq/L Chloride 112 H (98-109) mEq/L Carbon Dioxide 16 L (19-29) mEq/L BUN 7 L (8-26) mg/dL Creatinine 0.74 (0.72-1.25) mg/dL Glucose 125 H (70-99) mg/dL Calcium 7.9 L (8.6-10.8) mg/dL Adrenal panel 01/03/17 Range/Units 03:48 Sodium 138 (136-145) mEq/L Potassium 2.6 L (3.5-4.5) mEq/L Chloride 112 H (98-109) mEq/L Carbon Dioxide 16 L (19-29) mEq/L BUN 7 L (8-26) mg/dL Creatinine 0.74 (0.72-1.25) mg/dL Glucose 125 H (70-99) mg/dL Calcium 7.9 L (8.6-10.8) mg/dL Consult Discharge Plan - Plan Additional Instructions: Avoid fatty foods. Wash site of cholecystostomy with soap and water daily. Empty drain twice daily or more often if needed. Record on provided drainage log. Follow up with Dr. Fraire Jan 19 at 9:35. Referrals: Emanuel Waters MD [Primary Care Provider] - Hoa Fraire MD [Partnered Physician] - 01/19/17 9:35 am (f/u cholecystitis , drain check) <Hoa Fraire - Last Filed: 01/03/17 16:31> Time of Encounter: 16:30 - Assessment and Plan (1) Alcoholism /alcohol abuse Current Visit: Yes Status: Chronic (2) COPD (chronic obstructive pulmonary disease) Current Visit: Yes Status: Chronic Qualifiers: COPD type: emphysema Emphysema type: unspecified Qualified Code(s): J43.9 - Emphysema, unspecified (3) Abdominal pain Current Visit: No Status: Acute Qualifiers: Abdominal location: right upper quadrant Qualified Code(s): R10.11 - Right upper quadrant pain (4) Acute cholecystitis Current Visit: Yes Status: Acute s/p percutaneous cholecystostomy tube, draining bile pain improved but not gone, tolerating with percocet advance diet to low fat as tolerate ok to dc from surgery standpoint as wbc and lfts returned to normal followup my office 2-3 weeks Subjective Patient reports: no new complaints, feels better, still having pain, pain is less, tolerating liquids well Objective Vital Signs - Last 8 Hours Temp Pulse Resp BP Pulse Ox 01/03/17 11:03 98.2 F 77 16 141/83 94 L Intake and Output 01/03/17 01/03/17 01/03/17 07:59 15:59 23:59 Intake Total 1167 / 1167 1852 / 1852 Output Total 50 / 50 Balance 1117 / 1117 1852 / 1852 Intake: IV Fluids 1167 / 1167 622 / 622 D5% And 0.9% Nacl 1000 Ml 867 / 867 1,000 ML @ 100 mls/hr IVC .Q10H [facility] Rx#: [id number] Cipro 400 MG/200 ML 400 200 / 200 mg In 200 ml @ 200 mls/hr IVPB Q12HR [facility] Rx#: [id number] Flagyl 500 MG/100 ML 500 100 / 100 100 / 100 mg In 100 ml @ 100 mls/hr IVPB Q8H [facility] Rx#: [id number] KCl 40 MEQ Xylocaine 2 ML 522 / 522 In Dextrose 5% 500 ML @ 130.5 mls/hr IVPB ONCE ONE Rx#:[id number] Oral 1230 / 1230 Output: Wound Drainage 50 / 50 Right Upper Abdomen 50 / 50 Other: Meal Lunch Percent of Meal Consumed 25% # Urine Diapers 1 1 Weight 61.954 kg Patient Weight 01/03/17 23:59 Weight 61.954 kg - General physical appearance well nourished, no distress - Eyes normal ocular movement - ENT normal mucosa, normocephalic - Neck Neck exam: trachea midline - Respiratory normal expansion, clear to auscultation - Abdomen Abdomen: Present: bowel sounds present, soft, surgical scars. Absent: distended , guarding, rebound Abdominal Tenderness: RUQ - Integumentary no rash - Neurologic CN 2-12 grossly intact - Musculoskeletal normal posture - Psychiatric oriented to time, oriented to person, oriented to place, speech is normal, memory intact - Labs 01/03/17 03:48 01/03/17 03:48 Diabetes panel 01/03/17 Range/Units 03:48 Sodium 138 (136-145) mEq/L Potassium 2.6 L (3.5-4.5) mEq/L Chloride 112 H (98-109) mEq/L Carbon Dioxide 16 L (19-29) mEq/L BUN 7 L (8-26) mg/dL Creatinine 0.74 (0.72-1.25) mg/dL Glucose 125 H (70-99) mg/dL Calcium 7.9 L (8.6-10.8) mg/dL Calcium panel 01/03/17 Range/Units 03:48 Calcium 7.9 L (8.6-10.8) mg/dL Pituitary panel 01/03/17 Range/Units 03:48 Sodium 138 (136-145) mEq/L Potassium 2.6 L (3.5-4.5) mEq/L Chloride 112 H (98-109) mEq/L Carbon Dioxide 16 L (19-29) mEq/L BUN 7 L (8-26) mg/dL Creatinine 0.74 (0.72-1.25) mg/dL Glucose 125 H (70-99) mg/dL Calcium 7.9 L (8.6-10.8) mg/dL Adrenal panel 01/03/17 Range/Units 03:48 Sodium 138 (136-145) mEq/L Potassium 2.6 L (3.5-4.5) mEq/L Chloride 112 H (98-109) mEq/L Carbon Dioxide 16 L (19-29) mEq/L BUN 7 L (8-26) mg/dL Creatinine 0.74 (0.72-1.25) mg/dL Glucose 125 H (70-99) mg/dL Calcium 7.9 L (8.6-10.8) mg/dL - Attending Attestation I examined this patient and my medical decision-making was reviewed with the ONLINE MERCHANDISER/PA/Advanced Practice Nurse/Resident Physician. I agree with the documented findings, disposition and treatment plan as described except to the extent set forth below.
--- NOTE | 2017-01-03 12:13 | Internal Med Progress Note ---
Date of Encounter: 01/03/17 Time of Encounter: 12:11 - Assessment and plan (1) Hypokalemia Current Visit: Yes Status: Acute Assessment and plan: Potassium supplemented Continue to monitor electrolytes and replace as needed (2) Acute cholecystitis Current Visit: Yes Status: Acute Assessment and plan: s/p percutaneous cholecystostomy tube, draining bile. Continue pain control Advance diet to low-fat cardiac diet Surgical eval appreciated Likely DC in the morning once patient is able to tolerate advanced diet well (3) Anemia Current Visit: Yes Status: Chronic Assessment and plan: H&H low but acceptable No active bleeding noted at this time Continue to monitor Qualifiers: Anemia type: unspecified type Qualified Code(s): D64.9 - Anemia, unspecified (4) COPD (chronic obstructive pulmonary disease) Current Visit: Yes Status: Chronic Assessment and plan: Not in acute exacerbation Reports of not being on home oxygen Continue bronchodilator support Monitor O2 sat O2 supplementation as needed Will obtain 6 minute walk test to see if patient qualifies for home oxygen Qualifiers: COPD type: emphysema Emphysema type: unspecified Qualified Code(s): J43.9 - Emphysema, unspecified (5) Essential hypertension Current Visit: Yes Status: Chronic Assessment and plan: BP within acceptable range Continue home medications (6) Atrial fibrillation Current Visit: No Status: Chronic Assessment and plan: Rate controlled with Cardizem Not on anticoagulation of unclear etiology, however patient noted to have upper GI bleed and cirrhosis of the liver during hospitalization in February 2016. Unclear if patient was restarted on Pradaxa since then Qualifiers: Atrial fibrillation type: chronic Qualified Code(s): I48.2 - Chronic atrial fibrillation (7) Cirrhosis of liver Current Visit: No Status: Chronic Assessment and plan: Continue management with primary pumper hand as outpatient Qualifiers: Hepatic cirrhosis type: alcoholic cirrhosis Ascites presence: without ascites Qualified Code(s): K70.30 - Alcoholic cirrhosis of liver without ascites (8) DVT prophylaxis Current Visit: No Status: Acute Assessment and plan: Heparin subcutaneous (9) Tobacco abuse Current Visit: Yes Status: Acute Assessment and plan: Smoking cessation counseling provided Patient is not ready to quit at this time Refused nicotine replacement therapy (10) Alcohol abuse Current Visit: Yes Status: Acute Assessment and plan: Reported history of extensive alcohol abuse Remains asymptomatic throughout the duration of his hospitalization will continue thiamine and folate CIWA monitoring Ativan when necessary for withdrawals - Subjective Interval history: Patient seen and examined at bedside. Resting comfortably in bed dates his pain is controlled with current pain regimen. Tolerating full liquid diet well and wishes to advance his diet. Reports of being in every day smoker and is not ready to quit at this time No reported history of home oxygen. - Constitutional Vitals: Temp Pulse Resp BP Pulse Ox 98.2 F 77 16 141/83 94 L 01/03/17 11:03 01/03/17 11:03 01/03/17 11:03 01/03/17 11:03 01/03/17 11:03 General appearance: Present: cooperative, A&O X 3, no acute distress, answers questions appropriately - Head Head exam: Present: atraumatic, normocephalic - Eye Eye exam: Present: normal appearance, conjuntiva pink, sclera anicteric - Respiratory Respiratory exam: Present: wheezes (bilateral expiratory wheezing ). Absent: respiratory distress - Cardiovascular Cardiovascular exam: Present: RRR, +S1, +S2 - GI/Abdominal GI/Abdominal exam: Present: normal bowel sounds, soft (right cholecystostomy in place, draing bile discharge). Absent: distended, tenderness - Extremities Exam Extremities exam: Present: warm, radial pulses palpable and symetrical. Absent : calf tenderness, pedal edema - Neurological Exam Neurological exam: Present: alert, oriented X3 - Psychiatric Psychiatric exam: Present: normal affect, normal mood Internal Medicine: Result - Labs CBC & Chem 7: 01/03/17 03:48 01/03/17 03:48 Labs: Short CBC 01/03/17 Range/Units 03:48 WBC 6.2 (4.3-11.1) K/mcL Hgb 11.6 L (12.9-16.9) g/dL Hct 34.8 L (37.5-50.1) % Plt Count 147 (140-400) K/mcL Neutrophils # 3.9 (1.6-8.9) K/mcL BMP 01/03/17 03:48 Sodium 138 Potassium 2.6 L Chloride 112 H Carbon Dioxide 16 L BUN 7 L Creatinine 0.74 Glucose 125 H Calcium 7.9 L - ABG Interpretation ABG results: PT/INR, D-dimer PT 15.1 Seconds (9.4-12.1) H 12/30/16 12:27 Consult Discharge Plan - Plan Additional Instructions: Avoid fatty foods. Wash site of cholecystostomy with soap and water daily. Empty drain twice daily or more often if needed. Record on provided drainage log. Follow up with Dr. Fraire Jan 19 at 9:35. Referrals: Hoa Fraire MD [Partnered Physician] - 01/19/17 9:35 am (f/u cholecystitis , drain check) Emanuel Waters MD [Primary Care Provider] -
[2017-01-03] MEDS ORDERED: Thiamine (B-1) 100 MG, Folic Acid 1 MG, MVI, adult with vitamin K 10 ML in 0.9 % Sodi... IVPB SCH (19:00)
[2017-01-03] MEDS ORDERED: Mirtazapine 15 MG TABLET PO SCH (21:00)
[2017-01-03] MEDS ORDERED: traZODone 50 MG TABLET PO SCH (21:00)
[2017-01-04] MEDS: MetroNIDAZOLE 500 MG/100 ML 500 MG/100 ML BAG IVPB SCH ×2 (00:07→08:39)
[2017-01-04] MEDS: *HR* OxyCODONE/APAP 5/325 TABLET PO PRN ×3 (00:07→12:39)
[2017-01-04] MEDS: Ipratropium/Albuterol Neb 3 ML IH SCH ×5 (00:11→16:12)
[2017-01-04] MEDS: D5% in 0.9% NACL 1,000 ML IVC SCH (00:36)
[2017-01-04] MEDS: Acetaminophen 325 MG TABLET PO PRN ×2 (02:33→11:08)
[2017-01-04 05:33] LABS: Basophils % 0.3 %; Eosinophils # 0.3 K/mcL (0.0-0.6); Eosinophils % 3.7 %; Hematocrit 34.1 % (37.5-50.1); Hemoglobin 11.7 g/dL (12.9-16.9); Immature Granulocytes % 0.7 % (0-4); Lymphocytes # 1.8 K/mcL (0.6-4.6); Lymphocytes % 25.2 %; Mean Corpuscular HGB Conc 34.3 g/dL (31.6-35.5); Mean Corpuscular Hemoglobin 32.7 pg (28.0-33.3); Mean Corpuscular Volume 95.3 fL (83.0-100.0); Mean Platelet Volume 11.3 fL (9.4-12.4); Monocytes # 0.8 K/mcL (0.0-1.3); Monocytes % 11.1 %; Neutrophils # 4.1 K/mcL (1.6-8.9); Platelet Count 148 K/mcL (140-400); Red Blood Count 3.58 M/mcL (4.19-5.50); Red Cell Distribution Width 14.9 % (11.5-14.5)
[2017-01-04 05:47] LABS: BUN/Creatinine Ratio 8 (6-26); Blood Urea Nitrogen 6 mg/dL (8-26); Calcium 8.1 mg/dL (8.6-10.8); Carbon Dioxide 18 mEq/L (19-29); Chloride 110 mEq/L (98-109); Glucose 99 mg/dL (70-99); Magnesium 1.5 mg/dL (1.6-2.6); Osmolality,Calculated 280 (280-300); Potassium 3.2 mEq/L (3.5-4.5); Sodium 136 mEq/L (136-145); eGFR For African Americans > 60 (> 60); eGFR For Non-African Americans > 60 (> 60)
[2017-01-04] MEDS: *HR* Heparin 5,000 UNIT/ML VIAL SQ SCH (06:24)
[2017-01-04] MEDS ORDERED: Potassium Chloride 40 MEQ, Lidocaine 1% 2 ML in D5% in Water 500 ML IVPB ONE (07:54)
[2017-01-04] MEDS ORDERED: Magnesium Sulfate 1 GM in D5% in Water 100 ML IVPB ONE (07:54)
[2017-01-04] MEDS: Magnesium Oxide 400 MG TABLET PO SCH (08:38)
[2017-01-04] MEDS: Diltiazem CD (24hr) 240 MG CAPSULE PO SCH (08:38)
[2017-01-04] MEDS: Pantoprazole 40 MG VIAL IVP SCH (08:38)
--- NOTE | 2017-01-04 11:50 | Physician Discharge Referral ---
Home Health/Hosp Referral Info Transfer to: Home Health - Diagnosis (1) Hypokalemia Priority: Secondary Status: Acute (2) Acute cholecystitis Priority: Primary Status: Acute (3) Anemia Priority: Secondary Status: Chronic (4) COPD (chronic obstructive pulmonary disease) Priority: Secondary Status: Chronic (5) Essential hypertension Priority: Secondary Status: Chronic (6) Atrial fibrillation Priority: Secondary Status: Chronic (7) Cirrhosis of liver Priority: Secondary Status: Chronic (8) DVT prophylaxis Priority: Secondary Status: Acute (9) Tobacco abuse Priority: Secondary Status: Acute (10) Alcohol abuse Priority: Secondary Status: Acute - Respiratory Orders Smoking Cessation: Smoking cessation has been advised. For more information, call the [place] Tobacco Quit Line at 5-091-FSTT-NOW. - Services Needed Following services are medically necessary services: Nursing, Home Health Aide, Physical Therapy, Occupational Therapy - Transfer Medications Home Medications: Diltiazem CD (24hr) [Cardizem CD] 180 mg PO DAILY 07/23/15 [History] Tamsulosin [Flomax] 0.4 mg PO DAILY 07/23/15 [History] Mirtazapine [Remeron] 30 mg PO HS 03/24/16 [History] Oxycodone HCl/Acetaminophen [Percocet 10-325 mg Tablet] 1 tab PO Q8H PRN [History] Omeprazole [PriLOSEC] 40 mg PO DAILY #30 cap 03/26/16 [Rx] TraZODone 50 mg PO HS 12/29/16 [History] Loratadine [Claritin] 10 mg PO DAILY 12/30/16 [History] Allergies/Adverse Reactions: Allergies aspirin Allergy (Verified 12/30/16 07:32) See Comments unknown Certification: Further, I certify that my clinical findings support that this patient is homebound (i.e. absences from home require considerable and taxing effort and are for medical reasons or mandaeism services or infrequently or short duration when for other reasons) because: Homebound Reason: Patient requires assistance of a person or device to safely leave home, Leaving home requires considerable and taxing effort due to condition Attestation: My signature below is to certify that this patient is under my care and that I, or nurse practitioner, or a physician's general office assistant working with me, has a face-to -face encounter with this patient.
[2017-01-04] MEDS ORDERED: Sennosides/Docusate Sodium TABLET PO SCH (12:00)
--- NOTE | 2017-01-04 12:02 | Discharge Summary ---
Date of Encounter: 01/04/17 Time of Encounter: 11:58 - Discharge Diagnosis (1) Hypokalemia Priority: Secondary Status: Acute (2) Acute cholecystitis Priority: Primary Status: Acute (3) Anemia Priority: Secondary Status: Chronic Qualifiers: Anemia type: unspecified type Qualified Code(s): D64.9 - Anemia, unspecified (4) COPD (chronic obstructive pulmonary disease) Priority: Secondary Status: Chronic Qualifiers: COPD type: emphysema Emphysema type: unspecified Qualified Code(s): J43.9 - Emphysema, unspecified (5) Essential hypertension Priority: Secondary Status: Chronic (6) Atrial fibrillation Priority: Secondary Status: Chronic Qualifiers: Atrial fibrillation type: chronic Qualified Code(s): I48.2 - Chronic atrial fibrillation (7) Cirrhosis of liver Priority: Secondary Status: Chronic Qualifiers: Hepatic cirrhosis type: alcoholic cirrhosis Ascites presence: without ascites Qualified Code(s): K70.30 - Alcoholic cirrhosis of liver without ascites (8) DVT prophylaxis Priority: Secondary Status: Acute (9) Tobacco abuse Priority: Secondary Status: Acute (10) Alcohol abuse Priority: Secondary Status: Acute - Discharge Medications Prescriptions: Ipratropium/Albuterol Neb [Duoneb] 3 ml IH [id number] #2 inhsol OxyCODONE/APAP 5/325 [Percocet 5/325 MG] 1 each PO Q6HR PRN #20 tablet PRN Reason: Pain Albuterol Neb [Proventil Neb] 2.5 mg IH Q2H PRN #2 inhsol PRN Reason: Shortness Of Breath/Wheezing Ciprofloxacin [Cipro] 500 mg PO BID #8 tablet MetroNIDAZOLE [Flagyl] 500 mg PO Q8H #12 tablet Sennosides/Docusate Sodium [Senna Plus] 2 each PO BID #20 tablet Home Medications: Diltiazem CD (24hr) [Cardizem CD] 180 mg PO DAILY 07/23/15 [History] Tamsulosin [Flomax] 0.4 mg PO DAILY 07/23/15 [History] Mirtazapine [Remeron] 30 mg PO HS 03/24/16 [History] Omeprazole [PriLOSEC] 40 mg PO DAILY #30 cap 03/26/16 [Rx] TraZODone 50 mg PO HS 12/29/16 [History] Loratadine [Claritin] 10 mg PO DAILY 12/30/16 [History] Albuterol Neb [Proventil Neb] 2.5 mg IH Q2H PRN #2 inhsol 01/04/17 [Rx] Ciprofloxacin [Cipro] 500 mg PO BID #8 tablet 01/04/17 [Rx] Ipratropium/Albuterol Neb [Duoneb] 3 ml IH [id number] #2 inhsol 01/04/17 [Rx] MetroNIDAZOLE [Flagyl] 500 mg PO Q8H #12 tablet 01/04/17 [Rx] OxyCODONE/APAP 5/325 [Percocet 5/325 MG] 1 each PO Q6HR PRN #20 tablet 01/04/17 [Rx] Sennosides/Docusate Sodium [Senna Plus] 2 each PO BID #20 tablet 01/04/17 [Rx] Allergies/Adverse Reactions: Allergies aspirin Allergy (Verified 12/30/16 07:32) See Comments unknown Date of admission: 12/30/16 02:28 Primary care physician: Emanuel Waters MD Consults: 12/30/16 02:32 Consult to Physician [CONS] Routine Consulting Provider: Hoa Fraire Reason for Consult: acute cholecystitis Call Completed: No 12/31/16 12:31 Consult to Interventional Radiology [CONS] Routine Consulting Provider: Radiology Interventional Cols Reason for Consult: need percutaneous cholecystostomy tube Time Notified: 12:31 Call Completed: Yes 01/02/17 07:32 Consult to Physical Therapy [CONS] Routine Comment: Evaluate, develop and implement POC OT [Consult to Occupational Therapy] [CONS] Routine Comment: Evaluate, develop and implement POC 01/02/17 07:33 Consult to Leaf [employer]er [CONS] Routine Reason for SW Consult: may need rehab, alcohol cessation help 01/03/17 12:07 Consult to Occupational Therapy [CONS] Routine Comment: Evaluate, develop and implement POC Consult to Physical Therapy [CONS] Routine Comment: Evaluate, develop and implement POC Discharging clinician: Dianelys Ramos Anticipated date of discharge: 01/04/17 - Patient Status Disposition: Home Health Service Condition: Good Functional capacity at discharge: uses cane/walker Overall status at discharge: patient is back to baseline - Discharge Instructions Follow Up With: Hoa Fraire MD [Partnered Physician] - 01/19/17 9:35 am (f/u cholecystitis , drain check) Emanuel Waters MD [Primary Care Provider] - Additional Instructions: Avoid fatty foods. Wash site of cholecystostomy with soap and water daily. Empty drain twice daily or more often if needed. Record on provided drainage log. Follow up with Dr. Fraire Jan 19 at 9:35. Follow up with PMD within one week after discharge. Take prescribed antibiotics as prescribed Smoking and alcohol cessation recommended Continue home medications as prescribed by your primary care physician. - Diet and Activity Activity: resume usual activities as tolerated, wear oxygen at all times Diet: low salt diet Hospital course: Mr. Manzo is a 76 year old male with PMH of arthritis, atrial fibrillation, COPD, GERD, hypertension, alcohol abuse who presented to the ER for evaluation of abdominal pain, nausea, vomiting, fever, and chills and was admitted for acute cholecystitis. He underwent went surgical eval and had a cholecystostomy tube placed by IR. Patient was also started on empiric IV abx. His initial clinical symptoms improved. He reported of having history of being an everyday smoker of 1-2ppd and adamantly stated that he is not going to quit. He continued to require O2 supplementation throughout the course of the admission, and had a 6-minute walk test, which qualified him for home oxygen. He was also closely monitored for alcohol withdrawals and remained asymptomatic throughout the course of the admission. Alcohol and smoking cessation counseling was provided. Patient's diet was gradually started and he is tolerating low fat diet. He states his pain is adequately controlled with current pain management. Patient is to follow up with primary care physician within one week after discharge. Patient is to go home with the cholecystostomy tube and follow up with Surgery within two weeks. Home health and home oxygen are set up. - Time Spent with Patient Total time spent providing and/or coordinating discharge services: - Constitutional Vitals: Temp Pulse Resp BP Pulse Ox 98.1 F 69 17 138/78 94 L 01/04/17 10:32 01/04/17 10:32 01/04/17 10:32 01/04/17 10:32 01/04/17 10:32 General appearance: Present: cooperative, A&O X 3, no acute distress, answers questions appropriately - Head Head exam: Present: atraumatic, normocephalic - Eye Eye exam: Present: normal appearance, conjuntiva pink, sclera anicteric - Respiratory Respiratory exam: Absent: respiratory distress, wheezes (equal air entry bilaterally) - Cardiovascular Cardiovascular exam: Present: RRR, +S1, +S2 - GI/Abdominal GI/Abdominal exam: Present: normal bowel sounds, soft. Absent: distended, tenderness (right cholecystostomy tube in place) - Extremities Exam Extremities exam: Present: warm, radial pulses palpable and symetrical. Absent : calf tenderness, pedal edema - Neurological Exam Neurological exam: Present: alert, oriented X3 - Psychiatric Psychiatric exam: Present: normal affect, normal mood
[2017-01-04] MEDS ORDERED: Multivit/Ca/Min/Fe/FA 1 TAB TABLET PO SCH (13:30)
[2017-01-04] MEDS ORDERED: Folic Acid 1 MG TABLET PO SCH (13:30)
[2017-01-04] MEDS ORDERED: Thiamine (B-1) 100 MG TABLET PO SCH (13:30)
[2017-01-04 14:42] VITALS: BP 116/97
[2017-01-04] MEDS ORDERED: metroNIDAZOLE 500 MG TABLET PO SCH (15:00)
== END 2017-01-04 16:17 | disposition home health service (06) | DRG 872 ==
LOC: 3ANU → SUATTDRO 12-30 02:28
PROVIDERS: ADMIT Internal Medicine; ATTEND Internal Medicine
PROC: IRDRAIN (2016-12-31 13:00)

== ENCOUNTER 2018-06-27 20:12 | Inpatient (IN) ==
[2018-06-27] MEDS ORDERED: Naloxone 0.4 MG/ML INJ IVP PRN (22:23)
[2018-06-27] MEDS ORDERED: Albuterol 2.5 MG/3 ML NEBULIZER IH PRN (22:23)
--- NOTE | 2018-06-27 22:31 | Internal Med History&Physical ---
<Dakota Mccrary - Last Filed: 06/27/18 23:22> Date of Encounter: 06/27/18 Time of Encounter: 22:27 Internal Medicine - H&P: HPI Chief complaint: Shortness of breath Admitted From: Hospital to Hospital Transfer Plans for Post Hospital Care: Home History of present illness: Mr. Manzo is a 78 year old male with past medical history of atrial fibrillation, COPD, GERD, hypertension presented to [facility] emergency room complaining of shortness of breath. Patient states that symptoms have been present for 3 days over family states that has been likely going on for the past 2 weeks. He states he is short of breath at rest however it is exacerbated with exertion. He is able to make approximately 10 steps without becoming dyspneic. He denies symptoms of fevers, chills, chest pain, nausea, vomiting. He does admit to a cough with thick white sputum which is near his baseline. He does take inhalers at home including duo nebs and albuterol and reports compliance with the duo nebs but does not like the albuterol. He also denies symptoms of orthopnea, PND however his family has noticed some bilateral lower extremity swelling to the mid thigh which they state has resolved since presentation to the emergency department. He denies any history of CHF or CAD. He is not oxygen dependent at home In the emergency department, vital signs significant for mild bradycardia at 53 , he was saturating 90% on 2 L of oxygen via nasal cannula. Labs were significant for a normal WBC, troponin was elevated at 0.36 and BNP was 1538. Chest x-ray at [facility] showed findings most consistent with mild pulmonary edema with bilateral pleural effusions. In [facility], he did receive 3-4 mg of aspirin as well as Lovenox 60 mg. He is notably not anticoagulated for atrial fibrillation due to history of GI bleeds. Past medical history as above. Patient denies any past surgical history Social history: Patient admits to smoking 1 pack per day however family present at bedside says it is closer to 3 packs per day for the past 70 years. States he drinks approximately 2-3 beers per day and has never had a history of withdrawals. Family states that he likely drinks much more, about 12 per day. Denies any recreational drug use. Past Med Surg Social Fam HX - Past Medical History Medical history: arthritis, atrial fibrillation, COPD, GERD, hypertension Additional medical history: SMOKER, Psychiatric history: anxiety, depression - Past Surgical History Surgical History: no surgical history - Social History Smoking Status: Current every day smoker Smokeless Tobacco Status: No Alcohol use: heavy Drug use: none - Family History Father Living Status: Hx Family Cardiac Disorders: Yes Mother Living Status: Hx Family Cardiac Disorders: No Hx Family Respiratory Disorders: No Internal Medicine - H&P: Meds Tamsulosin [Flomax] 0.4 mg PO DAILY 07/23/15 [History] Mirtazapine [Remeron] 30 mg PO HS 03/24/16 [History] Omeprazole [PriLOSEC] 40 mg PO DAILY #30 cap 03/26/16 [Rx] Loratadine [Claritin] 10 mg PO DAILY 12/30/16 [History] Ipratropium/Albuterol Neb [Duoneb] 3 ml IH Q8MLFPA #2 inhsol 01/04/17 [Rx] Escitalopram [Lexapro] 20 mg PO DAILY 06/27/18 [History] HYDROcodone/Acet 7.5/325 mg [[place] 7.5-325 mg] 1 tab PO QID PRN 06/27/18 [ History] Montelukast [Singulair] 10 mg PO DAILY 06/27/18 [History] traZODone [TraZODone] 50 mg PO HS 06/27/18 [History] Diltiazem HCl [Diltiazem 24Hr Cd] 180 mg PO DAILY 06/28/18 [History] Meloxicam [Mobic] 15 mg PO DAILY 06/28/18 [History] 3 Allergy/AdvReac Type Severity Reaction Status Date / Time aspirin AdvReac Intermediate See Verified 06/28/18 10:32 Comments All Systems PM: A 10-system review of systems was performed and is negative for pertinent findings except as documented above in the HPI. - Constitutional Constitutional: no anorexia, no chills, no fatigue, no fever(s), no weakness - Cardiovascular Cardiovascular ROS IM: dyspnea, dyspnea on exertion, edema, irregular heart rhythm, no chest pain, no diaphoresis, no orthopnea, no palpitations, no paroxysmal nocturnal dyspnea, no syncope - Respiratory Respiratory: cough, dyspnea, dyspnea on exertion, wheezing, excessive phlegm production, no hemoptysis, no pain on inspiration, no change in phlegm color - Gastrointestinal Gastrointestinal: no abdominal pain, no constipation, no diarrhea, no hematochezia, no melena, no nausea, no vomiting - Integumentary Integumentary IM: no rash - Neurological Neurological ROS: no numbness, no tingling - Constitutional Vitals: Temp Pulse Resp BP Pulse Ox 98.2 F 53 20 118/86 92 06/27/18 21:57 06/27/18 21:57 06/27/18 21:57 06/27/18 21:57 06/27/18 21:57 Exam: Gen.: Vitals noted. No acute distress. AAOx3. Resting comfortably in bed HEENT: PERRL/EOMI, oropharynx clear, Normocephalic, atraumatic, moist mucous membranes Cardiac: Irregularly irregular, no murmur, +S1/S2 Pulmonary: Moderate diffuse wheezing on auscultation. equal chest expansion. Resting comfortably on 2 L speaking in full sentences Abdomen: soft, nontender, BS noted, no guarding MSK: ROM intact, no joint swelling noted Extremities: Minimal BLE edema, nontender calf, no cyanosis or clubbing. Bilateral lower extremity erythema which patient states is chronic likely secondary to venous stasis Neuro: A&Ox3, moves all extremities, no focal deficits Psych: Appropriate mood and behavior - Assessment and plan (1) Acute respiratory failure Current Visit: Yes Status: Acute Assessment and plan: - Likely secondary to COPD exacerbation vs less likely CHF - Dyspnea on exertion with cough. Denies orthopnea, PND - BNP was elevated at 1538, CXR at [place] did show questionable pulmonary edema - Troponin also elevated at 0.36. Likely demand ischemia - No WBC elevation, afebrile. - Current chronic smoker, somewhere between 60 and 200 pack years. - Most recent echo on 01/04/17 shows EF 50-55%, indeterminate diastolic dysfunction, severely dilated bilateral atria - Currently tolerating 2L O2. Not oxygen dependent at home. Plan - Clinically more consistent with COPD exacerbation. - Will treat with solumedrol 40 mg [id number], levaquin 750mg daily, duonebs yaritza, albuterol PRN - Echocardiogram in AM to evaluate for CHF - Supplimental O2 as needed. Qualifiers: Respiratory failure complication: hypoxia Qualified Code(s): J96.01 - Acute respiratory failure with hypoxia (2) Acute exacerbation of chronic obstructive airways disease Current Visit: Yes Status: Acute Assessment and plan: - As above. - Less likely causes include CHF. (3) Atrial fibrillation Current Visit: Yes Status: Chronic Assessment and plan: - Chronic AFib not on AC due to history of GI bleeds - Rate controlled at this time. - Continue home BB Qualifiers: Atrial fibrillation type: chronic Qualified Code(s): I48.2 - Chronic atrial fibrillation (4) Elevated troponin Current Visit: Yes Status: Acute Assessment and plan: - Troponin of 0.36 in [facility] - Started on ASA and lovenox at [facility], last dose this evening - No EKG changes or chest pain. - History of GI bleeds on AC for AFib - Suspect that this is secondary to demand ischemia Plan - Will monitor and trend troponins - Echocardiogram ordered and pending. - Will consider further anticoagulation if troponin continues to rise. (5) Alcohol abuse Current Visit: Yes Status: Acute Assessment and plan: - patient as documented history of alcohol abuse - patient states he drinks appx 2-3 beers per day, however family approached nurse and states that he drinks close to 12 per day - No history of withdrawls plan - Start CIWA protocol - encouraged patient to quit or cut back - Started folic acid and thiamine supplementation (6) Essential hypertension Current Visit: Yes Status: Chronic Assessment and plan: - Well controlled on Home meds. Will continue (7) Acute pulmonary edema Current Visit: Yes Status: Acute Assessment and plan: - CXR at [place] showed evidence of pulmonary edema and BNP was elevated at 1538, however patient is clinically presenting with more COPD like symptoms. - Will obtain echocardiogram in ED and treat as above - Low threshold for diuresis if symptoms do not improve. (8) Tobacco abuse Current Visit: Yes Status: Chronic Assessment and plan: - patient admits to 1 PPD for last 60+ years - Family states that he may be closer to 3 PPD - I did discuss in length cessation with him and he is not interested at this time. We discussed complications including the COPD that is likely causing his symptoms. - Nicotine patch while admitted. (9) DVT prophylaxis Current Visit: Yes Status: Acute Assessment and plan: - Received lovenox in [facility]. - History of GI bleeds on AC - Will start SCDs - Time Spent With Patient Total time spent is greater than 50% in coordination of care (as documented) at patient's floor/unit and/or counseling patient: <Jeison Yuan - Last Filed: 06/29/18 02:51> Date of Encounter: 06/29/18 Internal Medicine - H&P: HPI History of present illness: Mr. Manzo is a 78 year old male All Systems PM: A 10-system review of systems was performed and is negative for pertinent findings except as documented above in the HPI. - Constitutional Vitals: Temp Pulse Resp BP Pulse Ox 98.7 F 75 17 137/92 96 06/29/18 00:00 06/29/18 00:00 06/29/18 00:00 06/29/18 00:00 06/29/18 00:00 Internal Med - H&P Results - Labs CBC & Chem 7: 06/28/18 05:55 06/28/18 05:55 Labs: Short CBC 06/28/18 Range/Units 05:55 WBC 2.2 L D (4.3-11.1) K/mcL Hgb 9.3 L (12.9-16.9) g/dL Hct 27.8 L (37.5-50.1) % Plt Count 149 (140-400) K/mcL Neutrophils # 1.8 (1.6-8.9) K/mcL BMP 06/28/18 05:55 Sodium 130 L Potassium 4.0 Chloride 100 Carbon Dioxide 23 BUN 12 Creatinine 1.01 Glucose 171 H Calcium 8.5 L - ABG Interpretation ABG results: 06/28/18 10:52 ABG pH 7.41 ABG pCO2 40 ABG pO2 68 L ABG HCO3 25 ABG Total CO2 27 H ABG O2 Saturation 93 L ABG Base Excess 1 - Attending Attestation Seen and assessed. Agree with plan per resident. Continue management for COPD exacerbation - Assessment and plan (1) Atrial fibrillation Current Visit: Yes Status: Chronic Qualifiers: Atrial fibrillation type: chronic Qualified Code(s): I48.2 - Chronic atrial fibrillation (2) DVT prophylaxis Current Visit: Yes Status: Acute (3) Elevated troponin Current Visit: Yes Status: Acute (4) Alcohol abuse Current Visit: Yes Status: Acute (5) Essential hypertension Current Visit: Yes Status: Chronic (6) Tobacco abuse Current Visit: Yes Status: Chronic (7) Acute exacerbation of chronic obstructive airways disease Current Visit: Yes Status: Inactive (8) Acute respiratory failure Current Visit: Yes Status: Acute Qualifiers: Respiratory failure complication: hypoxia Qualified Code(s): J96.01 - Acute respiratory failure with hypoxia - Time Spent With Patient Total time spent is greater than 50% in coordination of care (as documented) at patient's floor/unit and/or counseling patient:
[2018-06-27] MEDS: MethylPREDNISolone 40 MG/ML VIAL IVP SCH (22:53)
[2018-06-27] MEDS ORDERED: *HR* LORazepam 2 MG/ML VIAL IVP PRN (23:08)
[2018-06-27] MEDS: Ipratropium/Albuterol Neb 3 ML IH SCH (23:18)
[2018-06-27] MEDS: *HR* HYDROcodone/Acet 7.5/325 mg TABLET PO PRN (23:35)
[2018-06-28] MEDS ORDERED: GuaiFENesin/Dextromethorphan TABLET PO PRN (02:30)
[2018-06-28] MEDS ORDERED: Benzonatate 100 MG CAPSULE PO PRN (02:30)
[2018-06-28] MEDS: Ipratropium/Albuterol Neb 3 ML IH SCH ×5 (04:02→23:56)
[2018-06-28] MEDS: MethylPREDNISolone 40 MG/ML VIAL IVP SCH ×2 (04:53→11:08)
[2018-06-28 06:51] LABS: BUN/Creatinine Ratio 12 (6-26); Blood Urea Nitrogen 12 mg/dL (8-23); Calcium 8.5 mg/dL (8.6-10.3); Carbon Dioxide 23 mEq/L (23-29); Chloride 100 mEq/L (98-107); Glucose 171 mg/dL (70-105); Osmolality,Calculated 274 (280-300); Sodium 130 mEq/L (136-145); eGFR For Non-African Americans > 60 (> 60)
[2018-06-28 08:10] LABS: Hematocrit 27.8 % (37.5-50.1); Hemoglobin 9.3 g/dL (12.9-16.9); Immature Granulocytes % 0.5 % (0-4); Lymphocytes # 0.4 K/mcL (0.6-4.6); Lymphocytes % 16.3 %; Mean Corpuscular HGB Conc 33.5 g/dL (31.6-35.5); Mean Corpuscular Hemoglobin 29.2 pg (28.0-33.3); Mean Corpuscular Volume 87.4 fL (83.0-100.0); Mean Platelet Volume 10.9 fL (9.4-12.4); Monocytes % 1.9 %; Neutrophils # 1.8 K/mcL (1.6-8.9); Platelet Count 149 K/mcL (140-400); Red Blood Count 3.18 M/mcL (4.19-5.50); Red Cell Distribution Width 15.7 % (11.5-14.5); Segmented Neutrophils % 81.3 %
[2018-06-28] MEDS ORDERED: MVI, adult with vitamin K 10 ML in 0.9 % Sodium Chloride 1,000 ML IVC STA (08:42)
[2018-06-28] MEDS ORDERED: Furosemide 40 MG/4 ML VIAL IVP STA (08:58)
[2018-06-28] MEDS ORDERED: Diltiazem CD (24hr) 240 MG CAPSULE PO SCH (09:00)
[2018-06-28] MEDS ORDERED: VITAMIN K IVC STA (09:02)
[2018-06-28] MEDS ORDERED: SODIUM CHLORIDE 0.9% IVC STA (09:02)
[2018-06-28] MEDS ORDERED: MVI IVC STA (09:02)
[2018-06-28] MEDS ORDERED: Thiamine (B-1) 200 MG in D5% in Water 50 ML IVPB ONE (09:21)
[2018-06-28 09:36] LABS: INR 1.2
[2018-06-28 09:47] LABS: Magnesium 1.9 mg/dL (1.6-2.6); Phosphorous 3.7 mg/dL (2.7-4.5)
[2018-06-28 10:55] LABS: ABG Base Excess 1 mEq/L (-2 to 3); ABG HCO3 25 mEq/L (21-27); ABG Oxygen Saturation 93 % (95-98); ABG PCO2 40 mmHg (35-45); ABG PH 7.41 pH Units (7.32-7.45); ABG PO2 68 mmHg (85-104); ABG TCO2 27 mEq/L (20-26)
[2018-06-28] MEDS: Folic Acid 1 MG TABLET PO SCH (11:01)
[2018-06-28] MEDS: Diltiazem CD (24hr) 180 MG CAPSULE PO SCH (11:01)
[2018-06-28] MEDS: Levofloxacin 750 MG/150 ML 750 MG/150 ML BAG IVPB SCH (11:02)
[2018-06-28] MEDS: Thiamine (B-1) 100 MG TABLET PO SCH (11:02)
[2018-06-28] MEDS: Nicotine 21 MG PATCH.TD24 TD SCH (11:02)
[2018-06-28] MEDS: *HR* HYDROcodone/Acet 7.5/325 mg TABLET PO PRN ×2 (14:16→20:12)
--- NOTE | 2018-06-28 16:36 | Internal Med Progress Note ---
Hospitalist Progress Note - Encounter Date of Encounter: 06/28/18 Time of Encounter: 11:30 - Subjective Interval History: Patient presented from [place] ED for acute respiratory failure. He was observed overnight and treated with IV steroids. This morning nursing reported he was very somnolent and needed sternal rubbing. He was sat up in bed and mental status improved. He does complain of phlegm that he is having trouble clearing. He denies fevers/chills, chest pain, nausea/vomiting. - Exam Vitals: Temp Pulse Resp BP Pulse Ox 98.2 F 75 18 133/75 95 06/28/18 15:50 06/28/18 15:50 06/28/18 16:28 06/28/18 15:50 06/28/18 16:28 - Assessment and Plan (1) Acute respiratory failure Current Visit: Yes Status: Acute Assessment and Plan: Secondary to CHF and component of COPD - BNP was elevated at 1538, CXR at [place] did show questionable pulmonary edema - Troponin also elevated at 0.36 and now went down to 0.34. Denies chest pain. Likely demand ischemia - No WBC elevation, afebrile. - Current chronic smoker, somewhere between 60 and 200 pack years. - Most recent echo on 01/04/17 shows EF 50-55%, indeterminate diastolic dysfunction, severely dilated bilateral atria - Currently tolerating 2L O2. Not oxygen dependent at home. Plan - Will treat with solumedrol 40 mg [id number], levaquin 750mg daily, duonebs yaritza, albuterol PRN - Echocardiogram in AM to evaluate for CHF - Wean O2 - Continue IV Lasix, fluid restriction, daily weights. (2) Atrial fibrillation Current Visit: Yes Status: Chronic Assessment and Plan: - Chronic AFib not on AC due to history of GI bleeds - Rate controlled at this time. - Continue home BB (3) Elevated troponin Current Visit: Yes Status: Acute Assessment and Plan: - Troponin of 0.36 in [place] ED, now decreased to 0.34. No chest pain - Started on ASA and lovenox at [place], last dose this evening - No EKG changes or chest pain. - Suspect that this is secondary to demand ischemia (4) Alcohol abuse Current Visit: Yes Status: Acute Assessment and Plan: - patient as documented history of alcohol abuse - patient states he drinks appx 2-3 beers per day, however family approached nurse and states that he drinks close to 12 per day - No history of withdrawls plan - Continue CIWA protocol - Started folic acid and thiamine supplementation (5) Essential hypertension Current Visit: Yes Status: Chronic Assessment and Plan: - Well controlled on Home meds. Will continue (6) Tobacco abuse Current Visit: Yes Status: Chronic Assessment and Plan: - patient admits to 1 PPD for last 60+ years - Family states that he may be closer to 3 PPD - I did discuss in length cessation with him and he is not interested at this time. We discussed complications including the COPD that is likely causing his symptoms. - Nicotine patch while admitted. I discussed course of illness of COPD in relations to smoking, patient aware of this, daughter states he has been smoking for 70 years. d/w patient and provided support if ready to quit, currently not interested (7) Acute exacerbation of chronic obstructive airways disease Current Visit: Yes Status: Inactive (8) DVT prophylaxis Current Visit: Yes Status: Acute Assessment and Plan: - Received lovenox in [place] ED. - History of GI bleeds on AC - Continue SCDs - Time Spent with Patient Total time spent is greater than 50% in coordination of care (as documented) at patient's floor/unit and/or counseling patient: Internal Medicine: Result - Labs CBC & Chem 7: 06/28/18 05:55 06/28/18 05:55 Labs: Short CBC 06/28/18 Range/Units 05:55 WBC 2.2 L D (4.3-11.1) K/mcL Hgb 9.3 L (12.9-16.9) g/dL Hct 27.8 L (37.5-50.1) % Plt Count 149 (140-400) K/mcL Neutrophils # 1.8 (1.6-8.9) K/mcL BMP 06/28/18 05:55 Sodium 130 L Potassium 4.0 Chloride 100 Carbon Dioxide 23 BUN 12 Creatinine 1.01 Glucose 171 H Calcium 8.5 L Cardiac Enzymes 06/27/18 Range/Units 22:50 Troponin I 0.34 H* (< 0.04) ng/mL - ABG Interpretation ABG results: ABG ABG pH 7.41 pH Units (7.32-7.45) 06/28/18 10:52 ABG pCO2 40 mmHg (35-45) 06/28/18 10:52 ABG pO2 68 mmHg (85-104) L 06/28/18 10:52 ABG O2 Saturation 93 % (95-98) L 06/28/18 10:52 PT/INR, D-dimer PT 13.0 Seconds (9.4-12.1) H 06/28/18 09:15 - VTE Documentation of Mechanical Device: Intermittent pneumatic compression device Consult Discharge Plan - Plan Referrals: Emanuel Waters MD [Primary Care Provider] - (1) Acute respiratory failure Qualifiers: Respiratory failure complication: hypoxia Qualified Code(s): J96.01 - Acute respiratory failure with hypoxia (2) Atrial fibrillation Qualifiers: Atrial fibrillation type: chronic Qualified Code(s): I48.2 - Chronic atrial fibrillation
[2018-06-28] MEDS: methylPREDNISolone 125 MG/2 ML VIAL IVP SCH (17:04)
[2018-06-28] MEDS: GuaiFENesin/Codeine Oral Soln 5 ML UDC PO PRN (17:05)
[2018-06-28] MEDS ORDERED: Furosemide 20 MG/2 ML VIAL IVP ONE (18:00)
[2018-06-28] MEDS ORDERED: Perflutren Lipid Microsphere 1.3 ML in 0.9 % Sodium Chloride 8.7 ML IVP ONE (19:08)
[2018-06-28] MEDS ORDERED: Perflutren Lipid Microsphere 2 ML VIAL ONE (19:11)
[2018-06-28] MEDS: Mirtazapine 15 MG TABLET PO SCH (20:11)
[2018-06-28] MEDS: traZODone 50 MG TABLET PO SCH (20:12)
[2018-06-29] MEDS: methylPREDNISolone 125 MG/2 ML VIAL IVP SCH ×4 (00:07→18:14)
[2018-06-29] MEDS: *HR* HYDROcodone/Acet 7.5/325 mg TABLET PO PRN ×4 (02:48→21:07)
[2018-06-29 03:49] LABS: Hematocrit 30.2 % (37.5-50.1); Immature Granulocytes % 0.8 % (0-4); Lymphocytes # 0.3 K/mcL (0.6-4.6); Lymphocytes % 4.8 %; Mean Corpuscular HGB Conc 33.1 g/dL (31.6-35.5); Mean Corpuscular Hemoglobin 29.2 pg (28.0-33.3); Mean Platelet Volume 10.5 fL (9.4-12.4); Monocytes # 0.2 K/mcL (0.0-1.3); Monocytes % 3.4 %; Neutrophils # 6.5 K/mcL (1.6-8.9); Platelet Count 162 K/mcL (140-400); Red Blood Count 3.43 M/mcL (4.19-5.50); Red Cell Distribution Width 15.7 % (11.5-14.5)
[2018-06-29] MEDS: Ipratropium/Albuterol Neb 3 ML IH SCH ×6 (04:05→23:37)
[2018-06-29 04:12] LABS: BUN/Creatinine Ratio 15 (6-26); Blood Urea Nitrogen 15 mg/dL (8-23); Calcium 8.7 mg/dL (8.6-10.3); Carbon Dioxide 24 mEq/L (23-29); Chloride 97 mEq/L (98-107); Glucose 151 mg/dL (70-105); Osmolality,Calculated 278 (280-300); Potassium 3.1 mEq/L (3.5-5.1); Sodium 132 mEq/L (136-145); eGFR For Non-African Americans > 60 (> 60)
[2018-06-29] MEDS: GuaiFENesin/Codeine Oral Soln 5 ML UDC PO PRN (05:28)
[2018-06-29] MEDS: Thiamine (B-1) 100 MG TABLET PO SCH (08:35)
[2018-06-29] MEDS: Diltiazem CD (24hr) 180 MG CAPSULE PO SCH (08:35)
[2018-06-29] MEDS: Levofloxacin 750 MG/150 ML 750 MG/150 ML BAG IVPB SCH (08:36)
[2018-06-29] MEDS: Folic Acid 1 MG TABLET PO SCH (08:36)
[2018-06-29] MEDS: Nicotine 21 MG PATCH.TD24 TD SCH (08:37)
--- NOTE | 2018-06-29 13:03 | Internal Med Progress Note ---
<Marie Davis - Last Filed: 06/29/18 16:40> Hospitalist Progress Note - Encounter Date of Encounter: 06/29/18 Time of Encounter: 10:00 - Subjective Interval History: Today, patient states that he is still having shortness of breath with no change from yesterday as well as productive cough which is improving. He also complains of nausea but no vomiting. He denies chest pain, dizziness, change in vision, headache, pharyngitis, abdominal pain, diarrhea, constipation, dysuria, frequency or calf pain. - Exam Vitals: Temp Pulse Resp BP Pulse Ox 97.9 F 80 18 138/82 94 06/29/18 10:00 06/29/18 10:00 06/29/18 11:19 06/29/18 10:06/29/18 11:19 Exam: General: Resting, in mild respiratory distress. Awake, alert and orientated x3. HEENT: normocephalic, atraumatic, PERRL, EOMI, no scleral icteris, mucus membranes moist. No cervical lymphadenopathy, trachea midline, no thyromegaly. Cardio: RRR, no murmurs, rubs or gallops. Normal S1, S2. No carotid bruits. Pulmonary: Using accessory respiratory muscles. Decreased breath sounds present , diffuse wheezing throughout. No rales or rhonchi. Abdomen: Soft, non tender, non distended, no organomegaly, normal bowel sounds, no guarding, rebound or rigidity. Extremities: radial and dorsal pulses 2+. Normal capillary refill. No calf tenderness. No peripheral edema. Neuro: CN2-12 grossly intact, motor and sensory grossly intact. Psych: AAOx3, cooperative, answers questions appropriately - Assessment and Plan (1) Acute respiratory failure Current Visit: Yes Status: Acute Assessment and Plan: Likely secondary to COPD exacerbation and mild fluid overload from CHF History of COPD, smoker, 1-3 ppd for 60+ years. Presented with increasing shortness of breath at rest over 2 weeks prior to presentation and productive cough Afebrile, no increased WBC, decreased breath sounds, diffuse wheezing throughout with accessory respiratory muscle use CXR 06/27/18 interstitial and alveolar pulmonary edema with pleural effusions Plan: 2L/min nasal cannula solumedrol tapered to 60 mg q8, will continue to taper as tolerated. Levaquin day 2 continue proventil, duoneb, tessalon, mucinex, robitussin continue incentive spirometry and TID ambulation (2) COPD (chronic obstructive pulmonary disease) Current Visit: No Status: Acute Assessment and Plan: Acute respiratory failure likely secondary to COPD exacerbation. Plan as above. (3) CHF (congestive heart failure) Current Visit: Yes Status: Acute Assessment and Plan: Patient has known CHF, probably contributed to acute respiratory failure. Troponin elevated at 0.36 in [place] ED, trended down to 0.34 measured at [place] BNP was elevated at 1538. ECHO 06/28/18 showed LVEF 50%, severely dilated left atrium, moderate mitral and tricuspid regurgitation, severe pulmonary HTN, dilated IVC. (4) Atrial fibrillation Current Visit: Yes Status: Chronic Assessment and Plan: Rate is controlled, stable. Not on anticoagulation due to history of GI bleeds. continue diltiazem (5) Hypokalemia Current Visit: No Status: Acute Assessment and Plan: K level of 3.1 today. Given potassium replacement and will recheck on next set of labs. (6) Elevated troponin Current Visit: Yes Status: Acute Assessment and Plan: Troponin was 0.36 at [place] ED. Repeated upon admission here, at 0.34. No EKG changes or chest pain. Most likely secondary to demand ischemia. (7) Alcohol abuse Current Visit: Yes Status: Acute Assessment and Plan: Hx of drinking 12 beers per day per family. Patient admitted to only 3 beers per day. CIWA protocol started. Folic acid and thiamine supplementation. (8) Tobacco abuse Current Visit: Yes Status: Chronic Assessment and Plan: 1-3 ppd for 60+ years. Continue nicotine patch (9) Hypertension Current Visit: Yes Status: Chronic Assessment and Plan: controlled, continue home medications. DVT Prophylaxis: SCDs and increase ambulation. - Time Spent with Patient Total time spent is greater than 50% in coordination of care (as documented) at patient's floor/unit and/or counseling patient: Greater than 35 minutes Internal Medicine: Result - Labs CBC & Chem 7: 06/29/18 03:14 06/29/18 03:14 Labs: Short CBC 06/29/18 Range/Units 03:14 WBC 7.1 D (4.3-11.1) K/mcL Hgb 10.0 L (12.9-16.9) g/dL Hct 30.2 L (37.5-50.1) % Plt Count 162 (140-400) K/mcL Neutrophils # 6.5 (1.6-8.9) K/mcL BMP 06/29/18 03:14 Sodium 132 L Potassium 3.1 L Chloride 97 L Carbon Dioxide 24 BUN 15 Creatinine 1.01 Glucose 151 H Calcium 8.7 - ABG Interpretation ABG results: ABG ABG pH 7.41 pH Units (7.32-7.45) 06/28/18 10:52 ABG pCO2 40 mmHg (35-45) 06/28/18 10:52 ABG pO2 68 mmHg (85-104) L 06/28/18 10:52 ABG O2 Saturation 93 % (95-98) L 06/28/18 10:52 PT/INR, D-dimer PT 13.0 Seconds (9.4-12.1) H 06/28/18 09:15 - Impressions Impressions Echocardiogram 06/28/18 23:09 Impressions: LVEF 50%. Indeterminate diastolic function. Mildly dilated left ventricle. Normal right ventricular structure and function. Very severely dilated left atrium with bowing of the IAS to the right suggesting elevated LA pressures. Moderate eccentric mitral regurgitation. Moderate tricuspid regurgitation. Severe pulmonary hypertension. The IVC is dilated. No evidence of PFO with agitated saline contrast. Left Ventricular Wall Motion: Rest Echo Findings All wall segments showed normal motion. Findings: Study Quality * Technically adequate exam. ECG Findings * Atrial fibrillation. Left Ventricle * LVEF 50%. * Indeterminate diastolic function. * Mildly dilated left ventricle. Right Ventricle * Normal right ventricular structure and function. Left Atrium * Very severely dilated left atrium with bowing of the IAS to the right. Right Atrium * Severely dilated right atrium. Aortic Valve * No aortic regurgitation. * Aortic valve not well visualized. * No aortic stenosis. Mitral Valve * No mitral stenosis. * Moderate eccentric mitral regurgitation. * Mildly thickened mitral valve leaflets. Tricuspid Valve * Normal tricuspid valve structure. * Estimated RA pressure is 20 mmHg. * Estimated RVSP is 67 mmHg. * Severe pulmonary hypertension. * Moderate tricuspid regurgitation. Pulmonic Valve * Pulmonic valve is not well visualized. * No pulmonic stenosis. * No pulmonic regurgitation. Pulmonary Artery * Pulmonary artery not well visualized. Aorta * Normally sized aortic root. Pericardium * There is no pericardial effusion present. Interatrial Septum * No evidence of PFO by color Doppler. * No evidence of PFO with agitated saline contrast. IVC * The IVC is dilated. * < 50% respiratory change. - VTE Documentation of Mechanical Device: Intermittent pneumatic compression device Consult Discharge Plan - Plan Referrals: Emanuel Waters MD [Primary Care Provider] - <Rissa Granger - Last Filed: 06/29/18 17:02> Hospitalist Progress Note - Encounter Date of Encounter: 06/29/18 - Exam Vitals: Temp Pulse Resp BP Pulse Ox 98.0 F 63 17 131/76 95 06/29/18 14:00 06/29/18 14:00 06/29/18 15:54 06/29/18 14:00 06/29/18 15:54 - Assessment and Plan (1) Acute respiratory failure Current Visit: Yes Status: Acute (2) Atrial fibrillation Current Visit: Yes Status: Chronic (3) Elevated troponin Current Visit: Yes Status: Acute (4) Alcohol abuse Current Visit: Yes Status: Acute (5) Essential hypertension Current Visit: Yes Status: Chronic (6) Tobacco abuse Current Visit: Yes Status: Chronic (7) Acute exacerbation of chronic obstructive airways disease Current Visit: Yes Status: Inactive (8) DVT prophylaxis Current Visit: Yes Status: Acute - Summary of Assessment and Plan Summary of Assessment and Plan: I examined this patient and my medical decision-making was reviewed with the Resident Physician. I agree with the documented findings, disposition and treatment plan as described except to the extent set forth below. Still dyspneic with wheezing, but improved. Patient had improvement in fluid status today, rales and edema improved. Vital signs reviewed, stable on Nasal cannula, which he does not use at home. Will DC Lasix as he is now euvolemic. Continue COPD treatment. PT/OT recommends SNF and patient and are agreeable to this. Will coordinate to set up for tomorrow. - Time Spent with Patient Total time spent is greater than 50% in coordination of care (as documented) at patient's floor/unit and/or counseling patient: Internal Medicine: Result - Labs CBC & Chem 7: 06/29/18 03:14 06/29/18 03:14 Labs: Short CBC 06/29/18 Range/Units 03:14 WBC 7.1 D (4.3-11.1) K/mcL Hgb 10.0 L (12.9-16.9) g/dL Hct 30.2 L (37.5-50.1) % Plt Count 162 (140-400) K/mcL Neutrophils # 6.5 (1.6-8.9) K/mcL BMP 06/29/18 03:14 Sodium 132 L Potassium 3.1 L Chloride 97 L Carbon Dioxide 24 BUN 15 Creatinine 1.01 Glucose 151 H Calcium 8.7 - ABG Interpretation ABG results: ABG ABG pH 7.41 pH Units (7.32-7.45) 06/28/18 10:52 ABG pCO2 40 mmHg (35-45) 06/28/18 10:52 ABG pO2 68 mmHg (85-104) L 06/28/18 10:52 ABG O2 Saturation 93 % (95-98) L 06/28/18 10:52 PT/INR, D-dimer PT 13.0 Seconds (9.4-12.1) H 06/28/18 09:15 - Impressions Impressions Echocardiogram 06/28/18 23:09 Impressions: LVEF 50%. Indeterminate diastolic function. Mildly dilated left ventricle. Normal right ventricular structure and function. Very severely dilated left atrium with bowing of the IAS to the right suggesting elevated LA pressures. Moderate eccentric mitral regurgitation. Moderate tricuspid regurgitation. Severe pulmonary hypertension. The IVC is dilated. No evidence of PFO with agitated saline contrast. Left Ventricular Wall Motion: Rest Echo Findings All wall segments showed normal motion. Findings: Study Quality * Technically adequate exam. ECG Findings * Atrial fibrillation. Left Ventricle * LVEF 50%. * Indeterminate diastolic function. * Mildly dilated left ventricle. Right Ventricle * Normal right ventricular structure and function. Left Atrium * Very severely dilated left atrium with bowing of the IAS to the right. Right Atrium * Severely dilated right atrium. Aortic Valve * No aortic regurgitation. * Aortic valve not well visualized. * No aortic stenosis. Mitral Valve * No mitral stenosis. * Moderate eccentric mitral regurgitation. * Mildly thickened mitral valve leaflets. Tricuspid Valve * Normal tricuspid valve structure. * Estimated RA pressure is 20 mmHg. * Estimated RVSP is 67 mmHg. * Severe pulmonary hypertension. * Moderate tricuspid regurgitation. Pulmonic Valve * Pulmonic valve is not well visualized. * No pulmonic stenosis. * No pulmonic regurgitation. Pulmonary Artery * Pulmonary artery not well visualized. Aorta * Normally sized aortic root. Pericardium * There is no pericardial effusion present. Interatrial Septum * No evidence of PFO by color Doppler. * No evidence of PFO with agitated saline contrast. IVC * The IVC is dilated. * < 50% respiratory change. <Marie Davis - Last Filed: 06/29/18 16:40> (1) Acute respiratory failure Qualifiers: Respiratory failure complication: hypoxia Qualified Code(s): J96.01 - Acute respiratory failure with hypoxia (2) COPD (chronic obstructive pulmonary disease) Qualifiers: COPD type: emphysema Emphysema type: unspecified Qualified Code(s): J43.9 - Emphysema, unspecified (4) Atrial fibrillation Qualifiers: Atrial fibrillation type: chronic Qualified Code(s): I48.2 - Chronic atrial fibrillation <Rissa Granger - Last Filed: 06/29/18 17:02> (1) Acute respiratory failure Qualifiers: Respiratory failure complication: hypoxia Qualified Code(s): J96.01 - Acute respiratory failure with hypoxia (2) Atrial fibrillation Qualifiers: Atrial fibrillation type: chronic Qualified Code(s): I48.2 - Chronic atrial fibrillation
[2018-06-29] MEDS: traZODone 50 MG TABLET PO SCH (21:06)
[2018-06-29] MEDS: Mirtazapine 15 MG TABLET PO SCH (21:06)
[2018-06-30] MEDS: methylPREDNISolone 125 MG/2 ML VIAL IVP SCH ×3 (00:19→15:56)
[2018-06-30 01:47] LABS: Hematocrit 29.9 % (37.5-50.1); Hemoglobin 9.9 g/dL (12.9-16.9); Immature Granulocytes % 0.7 % (0-4); Lymphocytes # 0.3 K/mcL (0.6-4.6); Lymphocytes % 4.5 %; Mean Corpuscular HGB Conc 33.1 g/dL (31.6-35.5); Mean Corpuscular Hemoglobin 29.2 pg (28.0-33.3); Mean Corpuscular Volume 88.2 fL (83.0-100.0); Mean Platelet Volume 10.3 fL (9.4-12.4); Monocytes # 0.2 K/mcL (0.0-1.3); Monocytes % 3.3 %; Neutrophils # 6.8 K/mcL (1.6-8.9); Platelet Count 159 K/mcL (140-400); Red Blood Count 3.39 M/mcL (4.19-5.50); Red Cell Distribution Width 15.9 % (11.5-14.5); Segmented Neutrophils % 91.5 %
[2018-06-30 02:11] LABS: BUN/Creatinine Ratio 19 (6-26); Blood Urea Nitrogen 20 mg/dL (8-23); Calcium 8.6 mg/dL (8.6-10.3); Carbon Dioxide 25 mEq/L (23-29); Chloride 97 mEq/L (98-107); Glucose 132 mg/dL (70-105); Osmolality,Calculated 274 (280-300); Potassium 3.9 mEq/L (3.5-5.1); Sodium 130 mEq/L (136-145); eGFR For Non-African Americans > 60 (> 60)
[2018-06-30] MEDS: Ipratropium/Albuterol Neb 3 ML IH SCH ×6 (03:46→23:37)
[2018-06-30] MEDS: *HR* HYDROcodone/Acet 7.5/325 mg TABLET PO PRN ×3 (05:43→17:42)
[2018-06-30] MEDS: Levofloxacin 750 MG/150 ML 750 MG/150 ML BAG IVPB SCH (08:32)
[2018-06-30] MEDS: Thiamine (B-1) 100 MG TABLET PO SCH (08:33)
[2018-06-30] MEDS: Folic Acid 1 MG TABLET PO SCH (08:33)
[2018-06-30] MEDS: Nicotine 21 MG PATCH.TD24 TD SCH (08:34)
[2018-06-30] MEDS: Diltiazem CD (24hr) 180 MG CAPSULE PO SCH (08:34)
--- NOTE | 2018-06-30 15:00 | Cardiology Consult Note ---
<Brad Chamberlain - Last Filed: 06/30/18 14:47> Date of Encounter: 06/30/18 Time of Encounter: 14:47 Assessment and Plan (1) Elevated troponin Current Visit: Yes Status: Acute Troponin elevation, 0.34, 0.36, 0.41. ELevated troponin in the setting of copd exacerbation vs NSTEMI. EKG shows atrial fibrillation. TTE shows EF 50%, no WMA severe LAE, severe pulmonary hypertension. Cardiac risk factors of tobacco use, ETOH, HTN. Patient denies chest pain. Recommend asa, statin, and bb. I discussed medical management Vs LHC. Patient was not interested in discussing invasive evaluation and states he had one in the past that was ok. He states he is going home tonight no matter what. Recommend statin and bb. Ideally he should at least be on asa 81 mg daily. Patient was told not to take due to history of GI bleed. We will schedule out-pt f/u. (2) Atrial fibrillation Current Visit: Yes Status: Chronic H/o chronic atrial fibrillation. Currently rate controlled. States that he was told to stop taking pradaxa by his physician. H/o GI bleed per record. Qualifiers: Atrial fibrillation type: chronic Qualified Code(s): I48.2 - Chronic atrial fibrillation Discussion w patient/family: The assessment and plan as outlined above was discussed with the patient and/or family members who expressed understanding and agreement. All questions were answered. Thank you for involving us in the care of your patient. Please call with any questions. History of Present Illness Consult date: 06/30/18 Requesting physician: Rissa Granger Consult reason: elevated troponin Chief complaint: Increased SOB for two days.. History of present illness: Mr. Manzo is a 78 year old male with past medical history of COPD on home O2, chronic atrial fibrillation, tobacco and ETOH abuse. He presents with c/o increased SOB for two days. SOB mostly with exertion. He was admitted for COPD exacerbation. Cardiology consulted for elevated troponin. He denies chest pain. No prior history of CAD. He states that he follows with a certified registered locksmith in [place] at [facility] As of note he is a poor historian. Previous records show that he was on pradaxa. It is not clear why he is no longer taking. Past Med Surg Social Fam HX - Past Medical History Attestation: Yes The following information was validated with the patient. Medical history: arthritis, atrial fibrillation, COPD, GERD, hypertension Additional medical history: SMOKER, Psychiatric history: anxiety, depression - Past Surgical History Surgical History: no surgical history - Social History Smoking Status: Current every day smoker Smokeless Tobacco Status: No Alcohol use: heavy Drug use: none - Family History Father Living Status: Hx Family Cardiac Disorders: Yes Mother Living Status: Hx Family Cardiac Disorders: No Hx Family Respiratory Disorders: No Medications and Allergies Tamsulosin [Flomax] 0.4 mg PO DAILY 07/23/15 [History] Mirtazapine [Remeron] 30 mg PO HS 03/24/16 [History] Omeprazole [PriLOSEC] 40 mg PO DAILY #30 cap 03/26/16 [Rx] Loratadine [Claritin] 10 mg PO DAILY 12/30/16 [History] Ipratropium/Albuterol Neb [Duoneb] 3 ml IH [id number] #2 inhsol 01/04/17 [Rx] Escitalopram [Lexapro] 20 mg PO DAILY 06/27/18 [History] HYDROcodone/Acet 7.5/325 mg [[place] 7.5-325 mg] 1 tab PO QID PRN 06/27/18 [ History] Montelukast [Singulair] 10 mg PO DAILY 06/27/18 [History] traZODone [TraZODone] 50 mg PO HS 06/27/18 [History] Diltiazem HCl [Diltiazem 24Hr Cd] 180 mg PO DAILY 06/28/18 [History] Meloxicam [Mobic] 15 mg PO DAILY 06/28/18 [History] 3 Allergy/AdvReac Type Severity Reaction Status Date / Time aspirin AdvReac Intermediate See Verified 06/28/18 10:32 Comments All Systems Review: The remainder of the systems were reviewed and are negative Physical Examination Vital Signs, Last 4 Hours Temp Pulse Resp BP Pulse Ox 06/30/18 11:31 98.3 F 79 17 135/79 100 06/30/18 11:24 18 96 General: Conversant, No Apparent Distress HEENT: Atraumatic, Normocephaly, Mucus Membranes Moist Neck: No JVD, Normal carotid pulses Cardiac: Reg Rate and Rhythm, Normal S1 and S2, No Murmur Lungs: Other (expiratory wheezes scattered through out ) Neuro: Alert and responsive, No focal deficits noted Abdomen: Soft, Non-Tender Skin: No rashes noted on visualized skin Musculoskeletal: No Chest Wall Tenderness Extremities: No Clubbing, No Cyanosis, Normal Pulses, Other (BLE edema with redness and trace edema. ) Results 06/30/18 00:49 08 00:49 Lab Results 06/30/18 06/30/18 06/30/18 00:49 00:49 10:13 WBC 7.4 Hgb 9.9 L Hct 29.9 L Plt Count 159 Sodium 130 L Potassium 3.9 D Chloride 97 L Carbon Dioxide 25 BUN 20 Creatinine 1.06 Glucose 132 H Calcium 8.6 Troponin I 0.41 H* - Imaging and Cardiology Echo: report reviewed - EKG Interpretation EKG results cardiology: personally reviewed Consult Discharge Plan - Plan Referrals: Emanuel Waters MD [Primary Care Provider] - <Rito Ndiaye - Last Filed: 06/30/18 15:33> Date of Encounter: 06/30/18 - Attending Attestation I have personally performed a face to face evaluation on this patient. I have reviewed and agree with the care plan. History and Exam by me shows: Admitted with possible COPD exacerbation. Troponin elevated, likely secondary to demand ischemia. He desires no further workup. Assessment and Plan Discussion w patient/family: The assessment and plan as outlined above was discussed with the patient and/or family members who expressed understanding and agreement. All questions were answered. Thank you for involving us in the care of your patient. Please call with any questions. History of Present Illness History of present illness: Mr. Mazno is a 78 year old male All Systems Review: The remainder of the systems were reviewed and are negative Physical Examination Vital Signs, Last 4 Hours Temp Pulse Resp BP Pulse Ox 06/30/18 11:31 98.3 F 79 17 135/79 100 Results 06/30/18 00:49 06/30/18 00:49 Lab Results 06/30/18 06/30/18 06/30/18 00:49 00:49 10:13 WBC 7.4 Hgb 9.9 L Hct 29.9 L Plt Count 159 Sodium 130 L Potassium 3.9 D Chloride 97 L Carbon Dioxide 25 BUN 20 Creatinine 1.06 Glucose 132 H Calcium 8.6 Troponin I 0.41 H*
--- NOTE | 2018-06-30 16:23 | Internal Med Progress Note ---
<Marie Davis - Last Filed: 06/30/18 16:50> Hospitalist Progress Note - Encounter Date of Encounter: 06/30/18 Time of Encounter: 09:00 - Subjective Interval History: Today, patient states that his shortness of breath is decreasing, productive cough is also improving. He states that he is ready to go to [place] for 2 weeks of rehabilitation. He also complains of nausea but no vomiting. He denies chest pain, dizziness, change in vision, headache, abdominal pain, diarrhea, constipation, dysuria, frequency or calf pain. He was able to successfully ambulate with assistance and was encouraged to continue incentive spirometry. - Exam Vitals: Temp Pulse Resp BP Pulse Ox 98.3 F 73 17 144/82 100 06/30/18 15:00 06/30/18 15:00 06/30/18 16:11 06/30/18 15:00 06/30/18 16:11 Exam: General: Resting comfortably, in mild respiratory distress, AAOx3, pleasant HEENT: Normocephalic, atraumatic, EOMI, PERRL, mucus membranes dry. Neck soft, supple, trachea midline, no cervical lymphadenopathy. Cardio: RRR, no murmurs, rubs or gallops. Normal S1, S2. No carotid bruits. Pulmonary: Diffuse wheezes bilaterally, no rales or rhonchi. Accessory respiratory muscle use present. Abdomen: Soft, non tender, non distended, normal bowel sounds, no guarding, rebound or rigidity. No CVA or suprapubic tenderness. Extremities: Radial and dorsal pedis pulses 2+ and symmetrical, normal capillary refill, no clubbing. No peripheral edema or calf tenderness. Neuro: CN 2-12 intact, no focal deficits. Psych: Normal mood and affect, answers questions appropriately - Assessment and Plan (1) Acute respiratory failure Current Visit: Yes Status: Acute Assessment and Plan: Likely secondary to COPD exacerbation. Improving: Decreasing shortness of breath, productive cough improving. Wheezing present. Successfully weaned of supplemental O2 Levaquin day 3. Continue solumedrol continue breathing treatments, incentive spirometry and TID ambulation. Obtained placement at [place] for rehabilitation per social work. (2) COPD (chronic obstructive pulmonary disease) Current Visit: No Status: Acute Assessment and Plan: History of COPD, contributing to acute respiratory failure improving shortness of breath and productive cough and wheezing. Plan as above. (3) Elevated troponin Current Visit: Yes Status: Acute Assessment and Plan: Troponin elevation, 0.34, 0.36, 0.41 Denies chest pain EKG shows atrial fibrillation which is chronic. Cardio was consulted and recommends: Patient not interested in pursuing invasive evaluation so will focus on medical management. No intervention at this time. Begin risk factor reduction, start statin, beta ashli and ideally aspirin but history of GI bleed. Also recommend cardio follow up outpatient. (4) CHF (congestive heart failure) Current Visit: Yes Status: Acute Assessment and Plan: History of CHF, contributing to acute respiratory failure. BNP 1538. ECHO 06/28/18: LVEF 50%, mildly dilated LV, severely dilated LA, moderated mitral and tricuspid regurgitation, severe pulmonary HTN, IVC dilated. Net output -460 Continue lasix. (5) Atrial fibrillation Current Visit: Yes Status: Chronic Assessment and Plan: Stable, continue diltiazem (6) Hypokalemia Current Visit: No Status: Acute Assessment and Plan: Resolved, K 3.9 (7) Alcohol abuse Current Visit: Yes Status: Acute Assessment and Plan: Continue CIWA protocol. (8) Tobacco abuse Current Visit: Yes Status: Chronic Assessment and Plan: Continue nicotine patches (9) Hypertension Current Visit: Yes Status: Chronic Assessment and Plan: Stable, continue home medications DVT Prophylaxis: SCDs and ambulation - Time Spent with Patient Total time spent is greater than 50% in coordination of care (as documented) at patient's floor/unit and/or counseling patient: Internal Medicine: Result - Labs CBC & Chem 7: 06/30/18 00:49 06/30/18 00:49 Labs: Short CBC 06/30/18 Range/Units 00:49 WBC 7.4 (4.3-11.1) K/mcL Hgb 9.9 L (12.9-16.9) g/dL Hct 29.9 L (37.5-50.1) % Plt Count 159 (140-400) K/mcL Neutrophils # 6.8 (1.6-8.9) K/mcL BMP 06/30/18 00:49 Sodium 130 L Potassium 3.9 D Chloride 97 L Carbon Dioxide 25 BUN 20 Creatinine 1.06 Glucose 132 H Calcium 8.6 Cardiac Enzymes 06/30/18 Range/Units 10:13 Troponin I 0.41 H* (< 0.04) ng/mL - ABG Interpretation ABG results: ABG ABG pH 7.41 pH Units (7.32-7.45) 06/28/18 10:52 ABG pCO2 40 mmHg (35-45) 06/28/18 10:52 ABG pO2 68 mmHg (85-104) L 06/28/18 10:52 ABG O2 Saturation 93 % (95-98) L 06/28/18 10:52 PT/INR, D-dimer PT 13.0 Seconds (9.4-12.1) H 06/28/18 09:15 - VTE Documentation of Mechanical Device: Intermittent pneumatic compression device Consult Discharge Plan - Plan Referrals: Emanuel Waters MD [Primary Care Provider] - <Rissa Granger - Last Filed: 06/30/18 18:02> Hospitalist Progress Note - Encounter Date of Encounter: 06/30/18 - Exam Vitals: Temp Pulse Resp BP Pulse Ox 98.3 F 73 17 144/82 100 06/30/18 15:00 06/30/18 15:00 06/30/18 16:11 06/30/18 15:00 06/30/18 16:11 - Assessment and Plan (1) Acute respiratory failure Current Visit: Yes Status: Acute (2) Atrial fibrillation Current Visit: Yes Status: Chronic (3) Elevated troponin Current Visit: Yes Status: Acute (4) Alcohol abuse Current Visit: Yes Status: Acute (5) Essential hypertension Current Visit: Yes Status: Chronic (6) Tobacco abuse Current Visit: Yes Status: Chronic (7) Acute exacerbation of chronic obstructive airways disease Current Visit: Yes Status: Inactive (8) DVT prophylaxis Current Visit: Yes Status: Acute - Summary of Assessment and Plan Summary of Assessment and Plan: I examined this patient and my medical decision-making was reviewed with the Resident Physician. I agree with the documented findings, disposition and treatment plan as described except to the extent set forth below. - Time Spent with Patient Total time spent is greater than 50% in coordination of care (as documented) at patient's floor/unit and/or counseling patient: Internal Medicine: Result - Labs CBC & Chem 7: 06/30/18 00:49 06/30/18 00:49 Labs: Short CBC 06/30/18 Range/Units 00:49 WBC 7.4 (4.3-11.1) K/mcL Hgb 9.9 L (12.9-16.9) g/dL Hct 29.9 L (37.5-50.1) % Plt Count 159 (140-400) K/mcL Neutrophils # 6.8 (1.6-8.9) K/mcL BMP 06/30/18 00:49 Sodium 130 L Potassium 3.9 D Chloride 97 L Carbon Dioxide 25 BUN 20 Creatinine 1.06 Glucose 132 H Calcium 8.6 Cardiac Enzymes 06/30/18 Range/Units 10:13 Troponin I 0.41 H* (< 0.04) ng/mL - ABG Interpretation ABG results: ABG ABG pH 7.41 pH Units (7.32-7.45) 06/28/18 10:52 ABG pCO2 40 mmHg (35-45) 06/28/18 10:52 ABG pO2 68 mmHg (85-104) L 06/28/18 10:52 ABG O2 Saturation 93 % (95-98) L 06/28/18 10:52 PT/INR, D-dimer PT 13.0 Seconds (9.4-12.1) H 06/28/18 09:15 <Marie Davis L - Last Filed: 06/30/18 16:50> (1) Acute respiratory failure Qualifiers: Respiratory failure complication: hypoxia Qualified Code(s): J96.01 - Acute respiratory failure with hypoxia (2) COPD (chronic obstructive pulmonary disease) Qualifiers: COPD type: emphysema Emphysema type: unspecified Qualified Code(s): J43.9 - Emphysema, unspecified (5) Atrial fibrillation Qualifiers: Atrial fibrillation type: chronic Qualified Code(s): I48.2 - Chronic atrial fibrillation <Rissa Granger - Last Filed: 06/30/18 18:02> (1) Acute respiratory failure Qualifiers: Respiratory failure complication: hypoxia Qualified Code(s): J96.01 - Acute respiratory failure with hypoxia (2) Atrial fibrillation Qualifiers: Atrial fibrillation type: chronic Qualified Code(s): I48.2 - Chronic atrial fibrillation
[2018-06-30] MEDS ORDERED: Furosemide 40 MG/4 ML VIAL IVP ONE (16:25)
--- NOTE | 2018-06-30 16:25 | Internal Med Progress Note ---
Hospitalist Progress Note - Encounter Date of Encounter: 06/30/18 Time of Encounter: 10:19 - Subjective Interval History: Patient presented from [place] ED for acute respiratory failure. He was observed overnight and treated with IV steroids. This morning nursing reported he was very somnolent and needed sternal rubbing. He was sat up in bed and mental status improved. He does complain of phlegm that he is having trouble clearing. He denies fevers/chills, chest pain, nausea/vomiting. - Exam Vitals: Temp Pulse Resp BP Pulse Ox 98.3 F 73 17 144/82 100 06/30/18 15:00 06/30/18 15:00 06/30/18 16:11 06/30/18 15:00 06/30/18 16:11 Exam: General: Resting, in mild respiratory distress. Awake, alert and orientated x3. HEENT: normocephalic, atraumatic, PERRL, EOMI, no scleral icteris, mucus membranes moist. No cervical lymphadenopathy, trachea midline, no thyromegaly. Cardio: RRR, no murmurs, rubs or gallops. Normal S1, S2. No carotid bruits. Pulmonary: Using accessory respiratory muscles. Decreased breath sounds present , diffuse wheezing throughout. No rales or rhonchi. Abdomen: Soft, non tender, non distended, no organomegaly, normal bowel sounds, no guarding, rebound or rigidity. Extremities: radial and dorsal pulses 2+. Normal capillary refill. No calf tenderness. No peripheral edema. Neuro: CN2-12 grossly intact, motor and sensory grossly intact. Psych: AAOx3, cooperative, answers questions appropriately - Assessment and Plan (1) Acute respiratory failure Current Visit: Yes Status: Acute Assessment and Plan: Secondary to CHF and component of COPD - BNP was elevated at 1538, CXR at [place] did show questionable pulmonary edema - No WBC elevation, afebrile. - Current chronic smoker, somewhere between 60 and 200 pack years. - Echocardiogram: EF 50%, indeterminate DDF, severely dilated LA, severe Pulm HTN - Trop on admission 0.34, today 0.41. Suspect demand ischemia at this point - Still labored breathing but was able to wean to room air Plan - Wean Solumedrol - Finish Levaquin course - Fluid restriction, daily weights. Consult Cardiology (2) Atrial fibrillation Current Visit: Yes Status: Chronic Assessment and Plan: - Chronic AFib not on AC due to history of GI bleeds - Rate controlled at this time. - Continue home BB (3) Elevated troponin Current Visit: Yes Status: Acute Assessment and Plan: - Troponin of 0.36 in [place] ED, now decreased to 0.34. No chest pain - Started on ASA and lovenox at [place], last dose this evening - No EKG changes or chest pain. - Suspect that this is secondary to demand ischemia (4) Alcohol abuse Current Visit: Yes Status: Acute Assessment and Plan: - patient as documented history of alcohol abuse - patient states he drinks appx 2-3 beers per day, however family approached nurse and states that he drinks close to 12 per day - No history of withdrawls plan - Continue CIWA protocol - Started folic acid and thiamine supplementation (5) Essential hypertension Current Visit: Yes Status: Chronic Assessment and Plan: - Well controlled on Home meds. Will continue (6) Tobacco abuse Current Visit: Yes Status: Chronic Assessment and Plan: - patient admits to 1 PPD for last 60+ years - Family states that he may be closer to 3 PPD - I did discuss in length cessation with him and he is not interested at this time. We discussed complications including the COPD that is likely causing his symptoms. - Nicotine patch while admitted. I discussed course of illness of COPD in relations to smoking, patient aware of this, daughter states he has been smoking for 70 years. d/w patient and provided support if ready to quit, currently not interested (7) Acute exacerbation of chronic obstructive airways disease Current Visit: Yes Status: Inactive Assessment and Plan: - As above. Weaned to room air (8) DVT prophylaxis Current Visit: Yes Status: Acute Assessment and Plan: - Received lovenox in [place] ED. - History of GI bleeds on AC - Continue SCDs - Time Spent with Patient Total time spent is greater than 50% in coordination of care (as documented) at patient's floor/unit and/or counseling patient: Internal Medicine: Result - Labs CBC & Chem 7: 06/30/18 00:49 06/30/18 00:49 Labs: Short CBC 06/30/18 Range/Units 00:49 WBC 7.4 (4.3-11.1) K/mcL Hgb 9.9 L (12.9-16.9) g/dL Hct 29.9 L (37.5-50.1) % Plt Count 159 (140-400) K/mcL Neutrophils # 6.8 (1.6-8.9) K/mcL BMP 06/30/18 00:49 Sodium 130 L Potassium 3.9 D Chloride 97 L Carbon Dioxide 25 BUN 20 Creatinine 1.06 Glucose 132 H Calcium 8.6 Cardiac Enzymes 06/30/18 Range/Units 10:13 Troponin I 0.41 H* (< 0.04) ng/mL - ABG Interpretation ABG results: ABG ABG pH 7.41 pH Units (7.32-7.45) 06/28/18 10:52 ABG pCO2 40 mmHg (35-45) 06/28/18 10:52 ABG pO2 68 mmHg (85-104) L 06/28/18 10:52 ABG O2 Saturation 93 % (95-98) L 06/28/18 10:52 PT/INR, D-dimer PT 13.0 Seconds (9.4-12.1) H 06/28/18 09:15 - VTE Documentation of Mechanical Device: Intermittent pneumatic compression device Consult Discharge Plan - Plan Referrals: Emanuel Waters MD [Primary Care Provider] - (1) Acute respiratory failure Qualifiers: Respiratory failure complication: hypoxia Qualified Code(s): J96.01 - Acute respiratory failure with hypoxia (2) Atrial fibrillation Qualifiers: Atrial fibrillation type: chronic Qualified Code(s): I48.2 - Chronic atrial fibrillation
[2018-06-30] MEDS: traZODone 50 MG TABLET PO SCH (19:59)
[2018-06-30] MEDS: Mirtazapine 15 MG TABLET PO SCH (19:59)
[2018-07-01] MEDS: MethylPREDNISolone 40 MG/ML VIAL IVP SCH ×3 (00:47→16:55)
[2018-07-01] MEDS: Ipratropium/Albuterol Neb 3 ML IH SCH ×6 (03:17→23:38)
[2018-07-01 05:10] LABS: Hematocrit 29.4 % (37.5-50.1); Hemoglobin 9.8 g/dL (12.9-16.9); Immature Granulocytes % 0.9 % (0-4); Lymphocytes # 0.3 K/mcL (0.6-4.6); Lymphocytes % 4.6 %; Mean Corpuscular HGB Conc 33.3 g/dL (31.6-35.5); Mean Corpuscular Hemoglobin 29.3 pg (28.0-33.3); Mean Corpuscular Volume 87.8 fL (83.0-100.0); Monocytes # 0.2 K/mcL (0.0-1.3); Monocytes % 3.7 %; Neutrophils # 5.1 K/mcL (1.6-8.9); Platelet Count 159 K/mcL (140-400); Red Blood Count 3.35 M/mcL (4.19-5.50); Red Cell Distribution Width 15.9 % (11.5-14.5); Segmented Neutrophils % 90.8 %
[2018-07-01 05:31] LABS: BUN/Creatinine Ratio 24 (6-26); Blood Urea Nitrogen 26 mg/dL (8-23); Calcium 8.6 mg/dL (8.6-10.3); Carbon Dioxide 27 mEq/L (23-29); Chloride 99 mEq/L (98-107); Glucose 117 mg/dL (70-105); Osmolality,Calculated 282 (280-300); Potassium 3.6 mEq/L (3.5-5.1); Sodium 133 mEq/L (136-145); eGFR For Non-African Americans > 60 (> 60)
[2018-07-01] MEDS ORDERED: Isovue-370 500 ML INFUS..BTL IV ONE (08:03)
[2018-07-01 08:14] LABS: ABG Base Excess 5 mEq/L (-2 to 3); ABG HCO3 29 mEq/L (21-27); ABG Oxygen Saturation 91 % (95-98); ABG PCO2 41 mmHg (35-45); ABG PH 7.46 pH Units (7.32-7.45); ABG PO2 58 mmHg (85-104); ABG TCO2 31 mEq/L (20-26)
--- NOTE | 2018-07-01 09:08 | Internal Med Progress Note ---
<Prashant Perdomo - Last Filed: 07/01/18 12:07> Hospitalist Progress Note - Encounter Date of Encounter: 07/01/18 Time of Encounter: 09:10 - Subjective Interval History: Patient seen and examined at bedside; he reports that he is ready to go today. States that he is not want to be in the hospital anymore. He denies having any respiratory distress. Not currently on oxygen. Denies fever, chills, shortness of breath, chest pain, or palpitations. He has no complaints this time. - Exam Vitals: Temp Pulse Resp BP Pulse Ox 97.5 F L 86 16 153/108 94 07/01/18 07:00 07/01/18 07:00 07/01/18 07:00 07/01/18 07:00 07/01/18 07:00 Exam: General: No acute distress Cardio: RRR, no murmurs, rubs or gallops. Normal S1, S2. No carotid bruits. Pulmonary: Diffuse wheezes bilaterally, no rales or rhonchi. No accessory muscle use. Abdomen: Soft, non tender, non distended, normal bowel sounds. Extremities: Pulses +2 bilaterally Neuro: CN II-XII intact, no focal deficits. Psych: Normal mood and affect, answers questions appropriately - Assessment and Plan (1) Acute respiratory failure Current Visit: Yes Status: Acute Assessment and Plan: Likely secondary to COPD exacerbation - Currently on oxygen mask 3 L, [facility] of the chest is pending - Respiratory infection panel pending Plan: - Solu-Medrol 40 mg IV every 8 - Continue duo nebs, incentive spirometry, TID ambulation - Mehdi Robertson - Obtained placement at [place] for rehabilitation per social work (2) Elevated troponin Current Visit: Yes Status: Acute Assessment and Plan: Troponin elevation, 0.34, 0.36, 0.41 - EKG shows atrial fibrillation which is chronic - No chest pain - Cardiology was consulted; patient not interested in invasive evaluation - Continue medical management - Follow-up with cardiology in the outpatient setting (3) COPD (chronic obstructive pulmonary disease) Current Visit: No Status: Acute Assessment and Plan: History of COPD, contributing to acute respiratory failure - Plan as above (4) Atrial fibrillation Current Visit: Yes Status: Chronic Assessment and Plan: - Stable, continue diltiazem (5) Alcohol abuse Current Visit: Yes Status: Acute Assessment and Plan: - Continue CIWA protocol (6) Tobacco abuse Current Visit: Yes Status: Chronic Assessment and Plan: - Continue nicotine patches (7) Essential hypertension Current Visit: Yes Status: Chronic Assessment and Plan: - Stable, continue home medications (8) CHF (congestive heart failure) Current Visit: Yes Status: Acute Assessment and Plan: History of CHF, contributing to acute respiratory failure. - BNP 1538; ECHO 06/28/18: LVEF 50%, mildly dilated LV, severely dilated LA, moderated mitral and tricuspid regurgitation, severe pulmonary HTN, IVC dilated. - Continue Lasix - Time Spent with Patient Total time spent is greater than 50% in coordination of care (as documented) at patient's floor/unit and/or counseling patient: Internal Medicine: Result - Labs CBC & Chem 7: 07/01/18 00:52 07/01/18 00:52 Labs: Short CBC 07/01/18 Range/Units 00:52 WBC 5.6 (4.3-11.1) K/mcL Hgb 9.8 L (12.9-16.9) g/dL Hct 29.4 L (37.5-50.1) % Plt Count 159 (140-400) K/mcL Neutrophils # 5.1 (1.6-8.9) K/mcL BMP 07/01/18 00:52 Sodium 133 L Potassium 3.6 Chloride 99 Carbon Dioxide 27 BUN 26 H Creatinine 1.10 Glucose 117 H Calcium 8.6 Cardiac Enzymes 06/30/18 Range/Units 10:13 Troponin I 0.41 H* (< 0.04) ng/mL - ABG Interpretation ABG results: ABG ABG pH 7.46 pH Units (7.32-7.45) H 07/01/18 08:11 ABG pCO2 41 mmHg (35-45) 07/01/18 08:11 ABG pO2 58 mmHg (85-104) L 07/01/18 08:11 ABG O2 Saturation 91 % (95-98) L 07/01/18 08:11 PT/INR, D-dimer PT 13.0 Seconds (9.4-12.1) H 06/28/18 09:15 - VTE Documentation of Mechanical Device: Intermittent pneumatic compression device Consult Discharge Plan - Plan Referrals: Emanuel Waters MD [Primary Care Provider] - <Rissa Granger - Last Filed: 07/01/18 18:15> Hospitalist Progress Note - Encounter Date of Encounter: 07/01/18 - Exam Vitals: Temp Pulse Resp BP Pulse Ox 98.2 F 69 19 155/81 99 07/01/18 15:18 07/01/18 15:18 07/01/18 15:43 07/01/18 15:18 07/01/18 15:43 - Assessment and Plan (1) Acute respiratory failure Current Visit: Yes Status: Acute (2) Atrial fibrillation Current Visit: Yes Status: Chronic (3) COPD (chronic obstructive pulmonary disease) Current Visit: No Status: Acute (4) Elevated troponin Current Visit: Yes Status: Acute (5) Alcohol abuse Current Visit: Yes Status: Acute (6) Essential hypertension Current Visit: Yes Status: Chronic (7) Tobacco abuse Current Visit: Yes Status: Chronic (8) CHF (congestive heart failure) Current Visit: Yes Status: Acute - Summary of Assessment and Plan Summary of Assessment and Plan: I examined this patient and my medical decision-making was reviewed with the Resident Physician. I agree with the documented findings, disposition and treatment plan as described except to the extent set forth below. Patient had SOB overnight requiring BIPAP and increased O2. Today he has labored breathing, was able to briefly be on room air, but has returned to BIPAP. Will continue current therapy. A CTA was done and negative for PE. I suggested a Pulm consult to patient as he is not improving. He refuses a consult. He insists on going home. I explained to patient that his respiratory status is worsening he might need higher level of care. For now continue supportive measures for treatment of COPD exacerbation. I discussed respiratory status and refusing a Pulm consult with his over the phone. I discussed code status with patient, he is full code. - Time Spent with Patient Total time spent is greater than 50% in coordination of care (as documented) at patient's floor/unit and/or counseling patient: Internal Medicine: Result - Labs CBC & Chem 7: 07/01/18 00:52 07/01/18 00:52 Labs: Short CBC 07/01/18 Range/Units 00:52 WBC 5.6 (4.3-11.1) K/mcL Hgb 9.8 L (12.9-16.9) g/dL Hct 29.4 L (37.5-50.1) % Plt Count 159 (140-400) K/mcL Neutrophils # 5.1 (1.6-8.9) K/mcL BMP 07/01/18 00:52 Sodium 133 L Potassium 3.6 Chloride 99 Carbon Dioxide 27 BUN 26 H Creatinine 1.10 Glucose 117 H Calcium 8.6 - ABG Interpretation ABG results: ABG ABG pH 7.46 pH Units (7.32-7.45) H 07/01/18 08:11 ABG pCO2 41 mmHg (35-45) 07/01/18 08:11 ABG pO2 58 mmHg (85-104) L 07/01/18 08:11 ABG O2 Saturation 91 % (95-98) L 07/01/18 08:11 PT/INR, D-dimer PT 13.0 Seconds (9.4-12.1) H 06/28/18 09:15 - Impressions Impressions Chest CTA 07/01/18 08:03 IMPRESSION: 1. No pulmonary embolus. 2. Cardiomegaly with moderate congestive heart failure. 3. Severe atherosclerosis. 4. Severe emphysema. D/ / 07/01/2018 10:49:30 Kellie Suarez MD / jasmine Interpreting Provider: Kellie Suarez MD <Prashant Perdomo - Last Filed: 07/01/18 12:07> (1) Acute respiratory failure Qualifiers: Respiratory failure complication: hypoxia Qualified Code(s): J96.01 - Acute respiratory failure with hypoxia (3) COPD (chronic obstructive pulmonary disease) Qualifiers: COPD type: emphysema Emphysema type: unspecified Qualified Code(s): J43.9 - Emphysema, unspecified (4) Atrial fibrillation Qualifiers: Atrial fibrillation type: chronic Qualified Code(s): I48.2 - Chronic atrial fibrillation <Rissa Granger - Last Filed: 07/01/18 18:15> (1) Acute respiratory failure Qualifiers: Respiratory failure complication: hypoxia Qualified Code(s): J96.01 - Acute respiratory failure with hypoxia (2) Atrial fibrillation Qualifiers: Atrial fibrillation type: chronic Qualified Code(s): I48.2 - Chronic atrial fibrillation (3) COPD (chronic obstructive pulmonary disease) Qualifiers: COPD type: emphysema Emphysema type: unspecified Qualified Code(s): J43.9 - Emphysema, unspecified
[2018-07-01] MEDS: Folic Acid 1 MG TABLET PO SCH (10:01)
[2018-07-01] MEDS: Nicotine 21 MG PATCH.TD24 TD SCH (10:01)
[2018-07-01] MEDS: levoFLOXacin 750 MG TABLET PO SCH (10:01)
[2018-07-01] MEDS: Diltiazem CD (24hr) 180 MG CAPSULE PO SCH (10:01)
[2018-07-01] MEDS: *HR* HYDROcodone/Acet 7.5/325 mg TABLET PO PRN ×2 (10:01→14:37)
[2018-07-01] MEDS: Thiamine (B-1) 100 MG TABLET PO SCH (10:01)
[2018-07-01] MEDS ORDERED: ALPRAZolam 0.5 MG TABLET PO ONE (10:38)
[2018-07-01] MEDS ORDERED: Furosemide 20 MG/2 ML VIAL IVP ONE (11:16)
--- NOTE | 2018-07-01 19:22 | Discharge Summary ---
- NOTES TO OUTPATIENT PROVIDER Notes to Outpatient Provider: Leaving AMA - Risks explained to patient. Orders not resulted at time of discharge: Pending orders 06/28/18 08:59 Respiratory Infection Panel [MOLMIC] Routine 06/28/18 09:15 Mycoplasma pneumoniae IgG IgM Routine 07/02/18 04:00 BMP [Basic Metabolic Panel] AM 0400 Complete Blood Count [HEME] AM 0400 07/03/18 04:00 BMP [Basic Metabolic Panel] AM 0400 Complete Blood Count [HEME] AM 0400 Date of Encounter: 07/01/18 Time of Encounter: 19:17 - Discharge Diagnosis (1) Acute respiratory failure Priority: Primary Status: Acute Qualifiers: Respiratory failure complication: hypoxia Qualified Code(s): J96.01 - Acute respiratory failure with hypoxia (2) Atrial fibrillation Priority: Secondary Status: Chronic Qualifiers: Atrial fibrillation type: chronic Qualified Code(s): I48.2 - Chronic atrial fibrillation (3) COPD (chronic obstructive pulmonary disease) Priority: Secondary Status: Acute Qualifiers: COPD type: emphysema Emphysema type: unspecified Qualified Code(s): J43.9 - Emphysema, unspecified (4) Elevated troponin Priority: Secondary Status: Acute (5) Alcohol abuse Priority: Secondary Status: Acute (6) Essential hypertension Priority: Secondary Status: Chronic (7) Tobacco abuse Priority: Secondary Status: Chronic (8) CHF (congestive heart failure) Priority: Secondary Status: Acute Qualifiers: Heart failure type: diastolic Heart failure chronicity: unspecified Qualified Code(s): I50.30 - Unspecified diastolic (congestive) heart failure Hospital course: Mr. Manzo is a 78 year old male alcohol abuse, COPD, atrial fibrillation (not on anticoagulation due to GIB), diastolic heart failure presented to [place] ED for SOB. This was ongoing for 2 weeks, worsened with exertion. Pt was unable to go 10 steps without dyspnea. . In the ED if he wasturating 90% on 2 L O2. Troponin was elevated at 0.36 and a BNP was 1538. Chest x-ray showed mild pulmonary edema with bilateral pleural effusions. He was transferred to [facility] for further workup and treatment. He was found to have profuse wheezing on exam. He was treated or COPD exacerbation as well as possible CHF exacerbation a well. He was started on Solumedrol, Levaquin, and Lasix. Cardiology was consulted as troponin levels did increase to 0.41. Patient declined further workup from Cardiology. A CTA of chest was done to rule out PE and was negative for PE. Did show severe emphysema and small pleural effusions. He required bipap off and on and multiple times would go into respiratory distress. Patient was agitated and insisted on going home. Stated he wants to go home to smoke and drink. Patient displayed that he has decision-making capacity. He was explained the risks of leaving against medical advice, these risks include respiratory failure, , cardiac failure, falls with injury. Patient verbalized understanding of this. His was contacted via phone and discussed with her the situation. Patient is approved to [facility] but at this point won't be able to go because he is leaving [place]. His prognosis is undetermined at this time. - Time Spent with Patient Total time spent providing and/or coordinating discharge services: - Discharge Medications Prescriptions: Atorvastatin [Lipitor] 40 mg PO HS #30 tablet Folic Acid 1 mg PO DAILY #30 tablet levoFLOXacin [Levaquin] 750 mg PO DAILY #5 tablet Metoprolol [Lopressor] 12.5 mg PO BID #30 tablet Thiamine (B-1) [Vitamin B-1] 100 mg PO DAILY #30 tablet Home Medications: Tamsulosin [Flomax] 0.4 mg PO DAILY 07/23/15 [History] Mirtazapine [Remeron] 30 mg PO HS 03/24/16 [History] Omeprazole [PriLOSEC] 40 mg PO DAILY #30 cap 03/26/16 [Rx] Ipratropium/Albuterol Neb [Duoneb] 3 ml IH [id number] #2 inhsol 01/04/17 [Rx] Escitalopram [Lexapro] 20 mg PO DAILY 06/27/18 [History] HYDROcodone/Acet 7.5/325 mg [[place] 7.5-325 mg] 1 tab PO QID PRN 06/27/18 [ History] Montelukast [Singulair] 10 mg PO DAILY 06/27/18 [History] traZODone [TraZODone] 50 mg PO HS 06/27/18 [History] Diltiazem HCl [Diltiazem 24Hr Cd] 180 mg PO DAILY 06/28/18 [History] Atorvastatin [Lipitor] 40 mg PO HS #30 tablet 08/04/18 [Rx] Folic Acid 1 mg PO DAILY #30 tablet 07/01/18 [Rx] GuaiFENesin ER [Mucinex] 600 mg PO BID tbbp.12hr 07/01/18 [Rx] Metoprolol [Lopressor] 12.5 mg PO BID #30 tablet 07/01/18 [Rx] Thiamine (B-1) [Vitamin B-1] 100 mg PO DAILY #30 tablet 07/01/18 [Rx] levoFLOXacin [Levaquin] 750 mg PO DAILY #5 tablet 07/01/18 [Rx] predniSONE [PredniSONE] 20 mg PO DAILY #24 tablet 07/01/18 [Rx] Allergies/Adverse Reactions: 3 Allergy/AdvReac Type Severity Reaction Status Date / Time aspirin AdvReac Intermediate See Verified 06/28/18 10:32 Comments Date of admission: 06/30/18 09:55 Primary care physician: Emanuel Waters MD Consults: 06/27/18 22:23 Consult to Nurse Navigator [CONS] Routine Comment: 06/28/18 16:58 Consult to Occupational Therapy [CONS] Routine Comment: Evaluate, develop and implement POC Reason for Consult: Evaluate, develop and implement POC Does patient have active BEDREST order?: No Is patient medically & hemodynamically stable?: Yes Consult to Physical Therapy [CONS] Routine Comment: Evaluate, develop and implement POC Reason for Consult: Disposition planning. Therapy - weakness in bed. Does patient have active BEDREST order?: No Is patient medically & hemodynamically stable?: Yes 06/29/18 17:00 Consult to Painter Helper [CONS] Routine Reason for SW Consult: PT/OT rec SNF; patient would like [facility] 06/30/18 11:25 Consult to Cardiology [CONS] Routine Comment: Consulting Provider: Cardiology Arlet Reason for Consult: elevated tropnin Call Completed: Yes 07/01/18 02:42 Consult to Respiratory Therapy [CONS] Stat Reason for Consult: Bipap Time Notified: 02:42 Call Completed: Yes Discharging clinician: Rissa Granger - Constitutional Vitals: Temp Pulse Resp BP Pulse Ox 98.2 F 69 19 155/81 99 07/01/18 15:18 07/01/18 15:18 07/01/18 15:43 07/01/18 15:07/01/18 15:43 Exam: Gen: AAOx3, displays respiratory distress CVS: RRR Lungs: Diffuse wheezing, poor air entry Abd: NT, ND Ext: no edema. - Patient Status Disposition: Left Against Medical Advice Condition: Undetermined Functional capacity at discharge: uses cane/walker Overall status at discharge: patient is not back to baseline - Discharge Instructions Follow Up With: Emanuel Waters MD [Primary Care Provider] - - Diet and Activity Activity: as per physical therapy Diet: low fat, low cholesterol, low salt diet - VTE Documentation of Mechanical Device: Intermittent pneumatic compression device
--- NOTE | 2018-07-02 00:24 | Event Note ---
Date of Encounter: 07/01/18 Time of Encounter: 22:28 Alerted by patient's nurse SALEEM Fuentes that patient had signed AMA paperwork earlier in the day due to wanting to go home. Pt. has a hx of pain pill use d/t chronic pain and alcohol abuse. Patient was admitted with acute respiratory failure and has history of COPD. Went to see patient who was in bed with family present in room. I asked the patient if you want to leave the hospital AMA and he said yes. I explained to the patient that he had been admitted for acute respiratory failure and was improving, however he had had an episode of what appeared to be hypoxia last night with shallow respirations. I explained to the patient that I would not be continuing narcotics for his pain but would be happy to prescribe Ultram for his pain overnight d/t shallow respirations the previous night. I explained to the patient the risks of leaving AMA this evening which included hypoxia, respiratory failure, increased risk for falls, and possible . Patient stated he wanted to go to [facility] and also wanted to be discharged with Hospice. I explained to the patient that was not can happen he left AMA. During our discussion, respiratory came into give patient a breathing treatment. Patient placed on oxy mask following the breathing treatment with SPO2 improving to 98-100% on 2 L. Patient also reported he did not have oxygen currently at home. I explained to the patient that Social Work consult could set this up for him. I also explained that I would place a consult for Palliative Care to see the patient. I asked the patient if he understood the risks that I had explained to him associated w/ leaving AMA. He stated he understood. The patient stated that he would stay overnight to receive continued treatment. Consults for SW and Palliative Care ordered. Ultram for pain ordered. Pt. to be monitored closely overnight for any changes. Pt. discussed w/Dr. Yuan who is aware of the situation and who will be following the patient overnight.
[2018-07-02] MEDS: Mirtazapine 15 MG TABLET PO SCH (00:59)
[2018-07-02] MEDS: traZODone 50 MG TABLET PO SCH (00:59)
[2018-07-02] MEDS: traMADol 50 MG TABLET PO PRN ×2 (01:00→11:32)
[2018-07-02] MEDS: MethylPREDNISolone 40 MG/ML VIAL IVP SCH ×2 (01:00→09:34)
[2018-07-02] MEDS: Ipratropium/Albuterol Neb 3 ML IH SCH ×4 (03:42→15:41)
[2018-07-02 05:02] LABS: Hematocrit 30.8 % (37.5-50.1); Hemoglobin 10.5 g/dL (12.9-16.9); Immature Granulocytes % 0.9 % (0-4); Lymphocytes # 0.3 K/mcL (0.6-4.6); Lymphocytes % 4.4 %; Mean Corpuscular HGB Conc 34.1 g/dL (31.6-35.5); Mean Platelet Volume 10.7 fL (9.4-12.4); Monocytes # 0.3 K/mcL (0.0-1.3); Monocytes % 4.1 %; Platelet Count 159 K/mcL (140-400); Red Cell Distribution Width 15.8 % (11.5-14.5); Segmented Neutrophils % 90.6 %
[2018-07-02 05:21] LABS: BUN/Creatinine Ratio 34 (6-26); Blood Urea Nitrogen 34 mg/dL (8-23); Calcium 8.5 mg/dL (8.6-10.3); Carbon Dioxide 28 mEq/L (23-29); Chloride 100 mEq/L (98-107); Glucose 131 mg/dL (70-105); Osmolality,Calculated 285 (280-300); Potassium 3.7 mEq/L (3.5-5.1); Sodium 133 mEq/L (136-145); eGFR For Non-African Americans > 60 (> 60)
--- NOTE | 2018-07-02 08:04 | Internal Med Progress Note ---
<ConorPrashant - Last Filed: 07/02/18 11:25> Hospitalist Progress Note - Encounter Date of Encounter: 07/02/18 Time of Encounter: 09:45 - Subjective Interval History: Patient seen and examined at bedside; denies having any respiratory distress. Reports that he slept well last night. Patient was initially going to sign out AMA last night, was convinced to stay for further treatment. Patient reports that he does not want to go to [facility]. He states that he was to be discharged hospice. He denies having fever, chills, shortness of breath, chest pain, chest tightness, or palpitations. He has no further complaints at this time. - Exam Vitals: Temp Pulse Resp BP Pulse Ox 98.3 F 63 18 160/103 94 07/02/18 07:30 07/02/18 07:30 07/02/18 07:30 07/02/18 07:30 07/02/18 07:30 Exam: General: No acute distress Cardio: RRR, no murmurs, rubs or gallops. Normal S1, S2. No carotid bruits. Pulmonary: Diffuse wheezes bilaterally, no rales or rhonchi. No accessory muscle use. Abdomen: Soft, non tender, non distended, normal bowel sounds. Extremities: Pulses +2 bilaterally Neuro: CN II-XII intact, no focal deficits. Psych: Normal mood and affect, answers questions appropriately - Assessment and Plan (1) Acute respiratory failure Status: Acute Assessment and Plan: Likely secondary to COPD exacerbation - Currently on oxygen mask 3 L, satting at 94 - Levaquin day 5 - CTA of the chest is pending - Respiratory infection panel pending Plan: - Will begin steroid taper; Solu-Medrol 40 mg IV every 12 - Continue duo nebs, incentive spirometry, TID ambulation - Mehdi Robertson - Obtained placement [facility] per social work (2) Elevated troponin Status: Acute Assessment and Plan: Troponin elevation, 0.34, 0.36, 0.41 - EKG shows atrial fibrillation which is chronic - No chest pain - Cardiology was consulted; patient not interested in invasive evaluation - Continue medical management - Follow-up with cardiology in the outpatient setting (3) COPD (chronic obstructive pulmonary disease) Status: Acute Assessment and Plan: History of COPD, contributing to acute respiratory failure - Plan as above (4) Atrial fibrillation Status: Chronic Assessment and Plan: - Stable, continue diltiazem (5) Alcohol abuse Status: Acute Assessment and Plan: - Continue CIWA protocol (6) Essential hypertension Status: Chronic Assessment and Plan: - Stable, continue home medications (7) Tobacco abuse Status: Chronic Assessment and Plan: - Continue nicotine patches (8) CHF (congestive heart failure) Status: Acute Assessment and Plan: History of CHF, contributing to acute respiratory failure. - BNP 1538; ECHO 06/28/18: LVEF 50%, mildly dilated LV, severely dilated LA, moderated mitral and tricuspid regurgitation, severe pulmonary HTN, IVC dilated. - Continue Lasix - Time Spent with Patient Total time spent is greater than 50% in coordination of care (as documented) at patient's floor/unit and/or counseling patient: Internal Medicine: Result - Labs CBC & Chem 7: 07/02/18 04:33 07/02/18 04:33 Labs: Short CBC 07/02/18 Range/Units 04:33 WBC 6.6 (4.3-11.1) K/mcL Hgb 10.5 L (12.9-16.9) g/dL Hct 30.8 L (37.5-50.1) % Plt Count 159 (140-400) K/mcL Neutrophils # 6.0 (1.6-8.9) K/mcL BMP 07/02/18 04:33 Sodium 133 L Potassium 3.7 Chloride 100 Carbon Dioxide 28 BUN 34 H Creatinine 1.01 Glucose 131 H Calcium 8.5 L - ABG Interpretation ABG results: ABG ABG pH 7.46 pH Units (7.32-7.45) H 07/01/18 08:11 ABG pCO2 41 mmHg (35-45) 07/01/18 08:11 ABG pO2 58 mmHg (85-104) L 07/01/18 08:11 ABG O2 Saturation 91 % (95-98) L 07/01/18 08:11 PT/INR, D-dimer PT 13.0 Seconds (9.4-12.1) H 06/28/18 09:15 - Impressions Impressions Chest CTA 07/01/18 08:03 IMPRESSION: 1. No pulmonary embolus. 2. Cardiomegaly with moderate congestive heart failure. 3. Severe atherosclerosis. 4. Severe emphysema. D/ / 07/01/2018 10:49:30 Kellie Suarez MD / jasmine Interpreting Provider: Kellie Suarez MD - VTE Documentation of Mechanical Device: Intermittent pneumatic compression device Consult Discharge Plan - Plan Referrals: Emanuel Waters MD [Primary Care Provider] - Prescriptions: Atorvastatin [Lipitor] 40 mg PO HS #30 tablet Folic Acid 1 mg PO DAILY #30 tablet levoFLOXacin [Levaquin] 750 mg PO DAILY #5 tablet Metoprolol [Lopressor] 12.5 mg PO BID #30 tablet predniSONE [PredniSONE] 20 mg PO DAILY #24 tablet Thiamine (B-1) [Vitamin B-1] 100 mg PO DAILY #30 tablet <Paula Grangerul Noelle - Last Filed: 07/03/18 01:28> Hospitalist Progress Note - Encounter Date of Encounter: 07/03/18 - Exam Vitals: Temp Pulse Resp BP Pulse Ox 98.2 F 84 20 139/76 95 07/02/18 11:20 07/02/18 11:20 07/02/18 15:44 07/02/18 15:54 07/02/18 15:44 - Assessment and Plan (1) Acute respiratory failure Status: Acute (2) Atrial fibrillation Status: Chronic (3) COPD (chronic obstructive pulmonary disease) Status: Acute (4) Elevated troponin Status: Acute (5) Alcohol abuse Status: Acute (6) Essential hypertension Status: Chronic (7) Tobacco abuse Status: Chronic (8) CHF (congestive heart failure) Status: Acute - Summary of Assessment and Plan Summary of Assessment and Plan: I examined this patient and my medical decision-making was reviewed with the Resident Physician. I agree with the documented findings, disposition and treatment plan as described except to the extent set forth below. - Time Spent with Patient Total time spent is greater than 50% in coordination of care (as documented) at patient's floor/unit and/or counseling patient: Internal Medicine: Result - Labs CBC & Chem 7: 07/02/18 04:33 07/02/18 04:33 Labs: Short CBC 07/02/18 Range/Units 04:33 WBC 6.6 (4.3-11.1) K/mcL Hgb 10.5 L (12.9-16.9) g/dL Hct 30.8 L (37.5-50.1) % Plt Count 159 (140-400) K/mcL Neutrophils # 6.0 (1.6-8.9) K/mcL BMP 07/02/18 04:33 Sodium 133 L Potassium 3.7 Chloride 100 Carbon Dioxide 28 BUN 34 H Creatinine 1.01 Glucose 131 H Calcium 8.5 L - ABG Interpretation ABG results: ABG ABG pH 7.46 pH Units (7.32-7.45) H 07/01/18 08:11 ABG pCO2 41 mmHg (35-45) 07/01/18 08:11 ABG pO2 58 mmHg (85-104) L 07/01/18 08:11 ABG O2 Saturation 91 % (95-98) L 07/01/18 08:11 PT/INR, D-dimer PT 13.0 Seconds (9.4-12.1) H 06/28/18 09:15 <Prashant Perdomo - Last Filed: 07/02/18 11:25> (1) Acute respiratory failure Qualifiers: Respiratory failure complication: hypoxia Qualified Code(s): J96.01 - Acute respiratory failure with hypoxia (3) COPD (chronic obstructive pulmonary disease) Qualifiers: COPD type: emphysema Emphysema type: unspecified Qualified Code(s): J43.9 - Emphysema, unspecified (4) Atrial fibrillation Qualifiers: Atrial fibrillation type: chronic Qualified Code(s): I48.2 - Chronic atrial fibrillation (8) CHF (congestive heart failure) Qualifiers: Heart failure type: diastolic Heart failure chronicity: unspecified Qualified Code(s): I50.30 - Unspecified diastolic (congestive) heart failure <Ghanem,Natalia Rheem - Last Filed: 07/03/18 01:28> (1) Acute respiratory failure Qualifiers: Respiratory failure complication: hypoxia Qualified Code(s): J96.01 - Acute respiratory failure with hypoxia (2) Atrial fibrillation Qualifiers: Atrial fibrillation type: chronic Qualified Code(s): I48.2 - Chronic atrial fibrillation (3) COPD (chronic obstructive pulmonary disease) Qualifiers: COPD type: emphysema Emphysema type: unspecified Qualified Code(s): J43.9 - Emphysema, unspecified (8) CHF (congestive heart failure) Qualifiers: Heart failure type: diastolic Heart failure chronicity: unspecified Qualified Code(s): I50.30 - Unspecified diastolic (congestive) heart failure
[2018-07-02] MEDS ORDERED: Furosemide 40 MG/4 ML VIAL IVP ONE (08:29)
[2018-07-02] MEDS: Diltiazem CD (24hr) 180 MG CAPSULE PO SCH (11:32)
[2018-07-02] MEDS: Thiamine (B-1) 100 MG TABLET PO SCH (11:32)
[2018-07-02] MEDS: Folic Acid 1 MG TABLET PO SCH (11:33)
[2018-07-02] MEDS: levoFLOXacin 750 MG TABLET PO SCH (11:33)
[2018-07-02] MEDS: Nicotine 21 MG PATCH.TD24 TD SCH (11:33)
--- NOTE | 2018-07-02 14:46 | Discharge Summary ---
- NOTES TO OUTPATIENT PROVIDER Notes to Outpatient Provider: - Patient states he is at baseline, which is using accessory muscles for breathing. - Patient requests Palliative consult for possibly becoming a hospice patient. He did not want to wait for this service and so needs to be done after discharge. Orders not resulted at time of discharge: Pending orders 06/28/18 08:59 Respiratory Infection Panel [MOLMIC] Routine 06/28/18 09:15 Mycoplasma pneumoniae IgG IgM Routine 07/03/18 04:00 BMP [Basic Metabolic Panel] AM 0400 Complete Blood Count [HEME] AM 0400 Date of Encounter: 07/02/18 Time of Encounter: 14:43 - Discharge Diagnosis (1) Acute respiratory failure Priority: Primary Status: Acute Qualifiers: Respiratory failure complication: hypoxia Qualified Code(s): J96.01 - Acute respiratory failure with hypoxia (2) Atrial fibrillation Priority: Secondary Status: Chronic Qualifiers: Atrial fibrillation type: chronic Qualified Code(s): I48.2 - Chronic atrial fibrillation (3) COPD (chronic obstructive pulmonary disease) Priority: Secondary Status: Acute Qualifiers: COPD type: emphysema Emphysema type: unspecified Qualified Code(s): J43.9 - Emphysema, unspecified (4) Elevated troponin Priority: Secondary Status: Acute (5) Alcohol abuse Priority: Secondary Status: Acute (6) Essential hypertension Priority: Secondary Status: Chronic (7) Tobacco abuse Priority: Secondary Status: Chronic (8) CHF (congestive heart failure) Priority: Secondary Status: Acute Qualifiers: Heart failure type: diastolic Heart failure chronicity: unspecified Qualified Code(s): I50.30 - Unspecified diastolic (congestive) heart failure Hospital course: Mr. Manzo is a 78 year old male alcohol abuse, COPD, atrial fibrillation (not on anticoagulation due to GIB), diastolic heart failure presented to [place] ED for SOB. This was ongoing for 2 weeks, worsened with exertion. Pt was unable to go 10 steps without dyspnea. . In the ED if he wasturating 90% on 2 L O2. Troponin was elevated at 0.36 and a BNP was 1538. Chest x-ray showed mild pulmonary edema with bilateral pleural effusions. He was transferred to [facility] for further workup and treatment. He was found to have profuse wheezing on exam. He was treated or COPD exacerbation as well as possible CHF exacerbation a well. He was started on Solumedrol, Levaquin, and Lasix. Cardiology was consulted as troponin levels did increase to 0.41. Patient declined further workup from Cardiology. A CTA of chest was done to rule out PE and was negative for PE. Did show severe emphysema and small pleural effusions. He required bipap off and on and multiple times would go into respiratory distress. Patient was agitated and insisted on going home. Stated he wants to go home to smoke and drink. He wanted to leave AMA but was too weak to do so and so family would not take him home. Patient qualified for SNF and will be going there upon discharge. Patient states he is at his baseline of breathing. Of note, he does have accessory muscle breathing, saturating 99% on room air, in no acute distress. Patient shows that he has decision-making capacity, and he requests to be a hospice patient. However, we do not have these services over the weekend and patient did not want to wait, and preferred to be discharged. He was discharged to [facility]. He will be discharged with Prednisone taper, Duo Nebs scheduled, and Levaquin course. - Time Spent with Patient Total time spent providing and/or coordinating discharge services: - Discharge Medications Prescriptions: Atorvastatin [Lipitor] 40 mg PO HS #30 tablet Folic Acid 1 mg PO DAILY #30 tablet levoFLOXacin [Levaquin] 750 mg PO DAILY #5 tablet Metoprolol [Lopressor] 12.5 mg PO BID #30 tablet predniSONE [PredniSONE] 20 mg PO DAILY #24 tablet Thiamine (B-1) [Vitamin B-1] 100 mg PO DAILY #30 tablet Home Medications: Tamsulosin [Flomax] 0.4 mg PO DAILY 07/23/15 [History] Mirtazapine [Remeron] 30 mg PO HS 03/24/16 [History] Omeprazole [PriLOSEC] 40 mg PO DAILY #30 cap 03/26/16 [Rx] Ipratropium/Albuterol Neb [Duoneb] 3 ml IH [id number] #2 inhsol 01/04/17 [Rx] Escitalopram [Lexapro] 20 mg PO DAILY 06/27/18 [History] HYDROcodone/Acet 7.5/325 mg [[place] 7.5-325 mg] 1 tab PO QID PRN 06/27/18 [ History] Montelukast [Singulair] 10 mg PO DAILY 06/27/18 [History] traZODone [TraZODone] 50 mg PO HS 06/27/18 [History] Diltiazem HCl [Diltiazem 24Hr Cd] 180 mg PO DAILY 06/28/18 [History] Atorvastatin [Lipitor] 40 mg PO HS #30 tablet 07/01/18 [Rx] Folic Acid 1 mg PO DAILY #30 tablet 07/01/18 [Rx] GuaiFENesin ER [Mucinex] 600 mg PO BID tbbp.12hr 07/01/18 [Rx] Metoprolol [Lopressor] 12.5 mg PO BID #30 tablet 07/01/18 [Rx] Thiamine (B-1) [Vitamin B-1] 100 mg PO DAILY #30 tablet 07/01/18 [Rx] levoFLOXacin [Levaquin] 750 mg PO DAILY #5 tablet 07/01/18 [Rx] predniSONE [PredniSONE] 20 mg PO DAILY #24 tablet 07/01/18 [Rx] Allergies/Adverse Reactions: 3 Allergy/AdvReac Type Severity Reaction Status Date / Time aspirin AdvReac Intermediate See Verified 06/28/18 10:32 Comments Date of admission: 06/30/18 09:55 Primary care physician: Emanuel Waters MD Consults: 06/27/18 22:23 Consult to Nurse Navigator [CONS] Routine Comment: 06/28/18 16:58 Consult to Occupational Therapy [CONS] Routine Comment: Evaluate, develop and implement POC Reason for Consult: Evaluate, develop and implement POC Does patient have active BEDREST order?: No Is patient medically & hemodynamically stable?: Yes Consult to Physical Therapy [CONS] Routine Comment: Evaluate, develop and implement POC Reason for Consult: Disposition planning. Therapy - weakness in bed. Does patient have active BEDREST order?: No Is patient medically & hemodynamically stable?: Yes 06/29/18 17:00 Consult to Lead Painter [CONS] Routine Reason for SW Consult: PT/OT rec SNF; patient would like [facility] 06/30/18 11:25 Consult to Cardiology [CONS] Routine Comment: Consulting Provider: Cardiology Arlet Reason for Consult: elevated tropnin Call Completed: Yes 07/01/18 02:42 Consult to Respiratory Therapy [CONS] Stat Reason for Consult: Bipap Time Notified: 02:42 Call Completed: Yes 07/02/18 00:26 Consult to Palliative Care [CONS] Routine Comment: Consulting Provider: Palliative Care Arlet Reason for Consult: Patient would like to be discharged w/Hospice Care. Pt. has extensive COPD hx and was admitted for acute respiratory failure. Family ( especially ) is unable to take care of the pt. adequately. Pt. would like to be discharged to [facility] on [facility]. Call Completed: No Consult to Lead Painter [CONS] Stat Reason for SW Consult: Patient is wanting to be discharged to [facility]. Pts. family would like the pt. to be placed there as well. Pt. needs placement [facility]. Discharging clinician: Rissa Granger - Constitutional Vitals: Temp Pulse Resp BP Pulse Ox 98.2 F 84 20 176/103 100 07/02/18 11:20 07/02/18 11:20 07/02/18 11:20 07/02/18 11:20 07/02/18 11:20 Exam: General: No acute distress Cardio: RRR, no murmurs, rubs or gallops. Normal S1, S2. No carotid bruits. Pulmonary: Diffuse wheezes bilaterally, no rales or rhonchi. No accessory muscle use. Abdomen: Soft, non tender, non distended, normal bowel sounds. Extremities: Pulses +2 bilaterally Neuro: CN II-XII intact, no focal deficits. Psych: Normal mood and affect, answers questions appropriately - Patient Status Disposition: Transfer SNF Condition: Undetermined Functional capacity at discharge: uses cane/walker Overall status at discharge: patient is progressing back to baseline - Discharge Instructions Follow Up With: Emanuel Waters MD [Primary Care Provider] - - Diet and Activity Activity: as per physical therapy Diet: low fat, low cholesterol, low salt diet - VTE Documentation of Mechanical Device: Intermittent pneumatic compression device
--- NOTE | 2018-07-02 14:52 | Physician Discharge Referral ---
ExtendedCare Referral Info Institutional Level of Care: Skilled - Diagnosis (1) Acute respiratory failure Priority: Primary Status: Acute (2) Atrial fibrillation Priority: Secondary Status: Chronic (3) COPD (chronic obstructive pulmonary disease) Priority: Secondary Status: Acute (4) Elevated troponin Priority: Secondary Status: Acute (5) Alcohol abuse Priority: Secondary Status: Acute (6) Essential hypertension Priority: Secondary Status: Chronic (7) Tobacco abuse Priority: Secondary Status: Chronic (8) CHF (congestive heart failure) Priority: Secondary Status: Acute - Transfer Medications Prescriptions: Atorvastatin [Lipitor] 40 mg PO HS #30 tablet Folic Acid 1 mg PO DAILY #30 tablet levoFLOXacin [Levaquin] 750 mg PO DAILY #5 tablet Metoprolol [Lopressor] 12.5 mg PO BID #30 tablet predniSONE [PredniSONE] 20 mg PO DAILY #24 tablet Thiamine (B-1) [Vitamin B-1] 100 mg PO DAILY #30 tablet Home Medications: Tamsulosin [Flomax] 0.4 mg PO DAILY 07/23/15 [History] Mirtazapine [Remeron] 30 mg PO HS 03/24/16 [History] Omeprazole [PriLOSEC] 40 mg PO DAILY #30 cap 03/26/16 [Rx] Ipratropium/Albuterol Neb [Duoneb] 3 ml IH [id number] #2 inhsol 01/04/17 [Rx] Escitalopram [Lexapro] 20 mg PO DAILY 06/27/18 [History] HYDROcodone/Acet 7.5/325 mg [[place] 7.5-325 mg] 1 tab PO QID PRN 06/27/18 [ History] Montelukast [Singulair] 10 mg PO DAILY 06/27/18 [History] traZODone [TraZODone] 50 mg PO HS 06/27/18 [History] Diltiazem HCl [Diltiazem 24Hr Cd] 180 mg PO DAILY 06/28/18 [History] Atorvastatin [Lipitor] 40 mg PO HS #30 tablet 07/01/18 [Rx] Folic Acid 1 mg PO DAILY #30 tablet 07/01/18 [Rx] GuaiFENesin ER [Mucinex] 600 mg PO BID tbbp.12hr 07/01/18 [Rx] Metoprolol [Lopressor] 12.5 mg PO BID #30 tablet 07/01/18 [Rx] Thiamine (B-1) [Vitamin B-1] 100 mg PO DAILY #30 tablet 07/01/18 [Rx] levoFLOXacin [Levaquin] 750 mg PO DAILY #5 tablet 07/01/18 [Rx] predniSONE [PredniSONE] 20 mg PO DAILY #24 tablet 07/01/18 [Rx] Allergies/Adverse Reactions: 3 Allergy/AdvReac Type Severity Reaction Status Date / Time aspirin AdvReac Intermediate See Verified 06/28/18 10:32 Comments - Respiratory Orders Smoking Cessation: Smoking cessation has been advised. For more information, call the [place] Tobacco Quit Line at 7-148-TJVV-NOW. - Advance Directives Code Status: Full Code - Mobility Orders Other (as per PT) - Treatments Skin tear care topically daily PRN per policy, May check for fecal impaction rectally daily PRN - Diet Orders Cardiac CERTIFICATION: I certify that the transfer of the above named patient to an Extended Care Facility is necessary for the continuing treatment of the diagnosis listed. The above information is true and accurate reflection of patient's current condition. Confidential - Redisclosure prohibited without a patient's written consent.
[2018-07-02 15:55] VITALS: BP 139/76
[2018-07-02] MEDS ORDERED: MethylPREDNISolone 40 MG/ML VIAL IVP SCH (18:00)
[2018-07-03 07:53] LABS: Mycoplasma pneumoniae IgG 0.94 U/L (<=0.09)
== END 2018-07-02 17:30 | DRG 291 ==
LOC: 2NENU
PROVIDERS: ADMIT Internal Medicine; ATTEND Internal Medicine